=== PATIENT | female | born 1985 | race Caucasian/White ===

== ENCOUNTER 2023-01-15 17:56 | Emergency (ER) | payer MEDICARE ==
--- NOTE | 2023-01-15 18:01 | ERPHSYRPT ---
- History of Present Illness Time Seen by Provider: 01/15/23 18:00 Source: patient Exam Limitations: no limitations Physician History: This is a 37-year-old white female who is relatively new to the area and has a history of having only 1 kidney remaining (left). She has a history of recurrent urinary tract infections. Typically, she states she gets an intravenous dose of gentamicin followed by Cipro as an outpatient. This helps her quite a bit per her report. Patient does see Dr. 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 Patient has Percocet pain medication at home and does not want any pain/narcotic medication here in the emergency room or for home. Approximately 3 to 4 days ago patient noticed cloudy urine followed by left flank pain 2 days ago. Is not getting better. Patient does have a history of hypertension. Timing/Duration: day(s) (Last 3 to 4 days), worse Activites at Onset: none Quality: sharpness, stabbing Onset Location: left flank Pain Radiation: none Severity of Pain-Max: moderate Severity of Pain-Current: moderate Sexual intercourse history: non-contributory Modifying Factors: Improves With: nothing Associated Symptoms: denies symptoms Allergies/Adverse Reactions: Cephalosporins Allergy (Verified 01/15/23 18:12) latex Allergy (Verified 01/15/23 18:12) metoclopramide [From Reglan] Allergy (Verified 01/15/23 18:12) ondansetron [From Zofran] Allergy (Verified 01/15/23 18:12) Penicillins Allergy (Verified 01/15/23 18:12) Sulfa (Sulfonamide Antibiotics) Allergy (Verified 01/15/23 18:12) Tetracyclines Allergy (Verified 01/15/23 18:12) Home Medications: Duloxetine HCl 30 mg [Cymbalta 30 MG Capsule] 60 mg PO DAILY 01/15/23 [History] Furosemide [Lasix] 1 tab PO DIRECTIONS UNKNOWN 01/15/23 [History] Losartan Potassium [Cozaar] 12.5 mg PO DAILY 01/15/23 [History] Oxycodone HCl/Acetaminophen [Oxycodone-Acetaminophn 7.5-325] 1 tab PO QID 01/15/23 [History] Semaglutide [Ozempic] 0.25 mg SQ WEEKLY 01/15/23 [History] Travel Risk - International Travel Have you traveled outside of the country in past 3 weeks: No - Coronavirus Screening Are you exhibiting any of the following symptoms?: No Close contact with a COVID-19 positive Pt in past 14-21 Days: No - Review of Systems Constitutional: No Symptoms Eyes: No Symptoms Ears, Nose, & Throat: No Symptoms Respiratory: No Symptoms Cardiac: No Symptoms Abdominal/Gastrointestinal: No Symptoms Genitourinary Symptoms: Flank Pain (left) Musculoskeletal: No Symptoms Skin: No Symptoms Neurological: No Symptoms Psychological: No Symptoms Endocrine: No Symptoms Hematologic/Lymphatic: No Symptoms Immunological/Allergic: No Symptoms All Other Systems: Reviewed and Negative - Past Medical History Pertinent Past Medical History: Yes - Past Surgical History Past Surgical History: Yes - Nursing Vital Signs Nursing Vital Signs: Initial Vital Signs Temperature 98.1 F 01/15/23 17:56 Pulse Rate 85 01/15/23 17:56 Respiratory Rate 20 01/15/23 17:56 Blood Pressure 111/91 01/15/23 17:56 O2 Sat by Pulse Oximetry 95 01/15/23 17:56 Pain Scale Pain Intensity 8 - Physical Exam General Appearance: no apparent distress, alert, anxiety Eye Exam: PERRL/EOMI, eyes nml inspection Ears, Nose, Throat Exam: normal ENT inspection, moist mucous membranes Neck Exam: normal inspection, non-tender, supple, full range of motion Respiratory Exam: normal breath sounds, lungs clear, airway intact, No chest tenderness, No respiratory distress Cardiovascular Exam: regular rate/rhythm, normal heart sounds, normal peripheral pulses Gastrointestinal/Abdomen Exam: soft, normal bowel sounds, No tenderness Pelvic Exam: not done Rectal Exam: not done Back Exam: normal inspection, normal range of motion, CVA tenderness (Left), No vertebral tenderness Extremity Exam: normal inspection, normal range of motion, pelvis stable Neurologic Exam: alert, oriented x 3, cooperative, nursing associate II-XII nml as tested, normal mood/affect, nml cerebellar function, nml station & gait, sensation nml Skin Exam: normal color, warm, dry Lymphatic Exam: No adenopathy SpO2 Interpretation: normal O2 Delivery: Room Air - Course Nursing assessment & vital signs reviewed: Yes Ordered Tests: Active Orders 24 hr Category Date Time Status IV Insertion STAT Care 01/15/23 18:56 Active BMP Stat Lab 01/15/23 19:09 Completed CBC W DIFF Stat Lab 01/15/23 19:09 Completed CULTURE,URINE Stat Lab 01/15/23 18:06 Received UA W/RFX UR CULTURE Stat Lab 01/15/23 18:06 Completed Medication Summary Generic Name Dose Route Start Last Admin Trade Name Kristin PRN Reason Stop Dose Admin Sodium Chloride 500 mls @ 500 mls/hr 01/15/23 18:57 01/15/23 19:10 Sodium Chloride 0.9% 500 Ml IV 01/15/23 19:56 500 mls/hr .Q1H ONE Administration Gentamicin Sulfate/Sodium Chloride 80 mg in 50 mls @ 100 mls/hr 01/15/23 19:28 Gentamicin 80 Mg/50 Ml Premix IV 01/15/23 19:57 STAT ONE Levofloxacin 250 mg 01/15/23 19:34 Levofloxacin 250 Mg Tab PO 01/15/23 19:35 STAT ONE Discontinued Medications Generic Name Dose Route Start Last Admin Trade Name Kristin PRN Reason Stop Dose Admin Sodium Chloride Confirm 01/15/23 19:08 Sodium Chloride 0.9% 500 Ml Administered 01/15/23 19:09 Dose 500 mls @ ud IV .STK-MED ONE Lab/Rad Data: Laboratory Result Diagrams 01/15/23 19:09 01/15/23 19:09 Laboratory Results 01/15/23 01/15/23 01/15/23 Range/Units 19:09 19:09 18:06 WBC 8.3 (4.0-10.5) x10^3/uL RBC 5.13 (4.1-5.4) x10^6/uL Hgb 14.3 (12.0-16.0) g/dL Hct 46.2 (35-47) % MCV 90.1 (78-100) fL MCH 27.9 (26-32) pg MCHC 31.0 L (32-36) g/dL RDW 12.5 (11.5-14.0) % Plt Count 177 (150-450) x10^3/uL MPV 11.3 H (7.5-11.0) fL Gran % 73.2 H (36.0-66.0) % Immature Gran % (Auto) 0.2 (0.00-0.4) % Nucleat RBC Rel Count 0.0 (0.00-0.1) % Eos # (Auto) 0.11 (0-0.5) x10^3/uL Immature Gran # (Auto) 0.02 (0.00-0.03) x10^3u/L Absolute Lymphs (auto) 1.49 (1.0-4.6) x10^3/uL Absolute Monos (auto) 0.58 (0.0-1.3) x10^3/uL Absolute Nucleated RBC 0.00 (0.00-0.01) x10^3u/L Lymphocytes % 17.9 L (24.0-44.0) % Monocytes % 7.0 (0.0-12.0) % Eosinophils % 1.3 (0.00-5.0) % Basophils % 0.4 (0.0-0.4) % Absolute Granulocytes 6.08 (1.4-6.9) x10^3/uL Basophils # 0.03 (0-0.4) x10^3/uL Sodium 140 (137-145) mmol/L Potassium 4.2 (3.5-5.1) mmol/L Chloride 105 (98-107) mmol/L Carbon Dioxide 25 (22-30) mmol/L Anion Gap 14.7 (5-15) MEQ/L BUN 20 H (7-17) mg/dL Creatinine 1.43 H (0.52-1.04) mg/dL Estimated GFR 43.4 ML/MIN Glucose 95 (74-106) mg/dL Calcium 9.1 (8.4-10.2) mg/dL Urine Color Yellow (Yellow) Urine Appearance Turbid A (Clear) Urine pH 7.5 (4.6-8.0) Ur Specific [place] 1.010 (1.005-1.030) Urine Protein Trace A (Negative) Urine Glucose (UA) Negative (Negative) mg/dL Urine Ketones Negative (Negative) Urine Blood Small A (Negative) Urine Nitrite Negative (Negative) Urine Bilirubin Negative (Negative) Urine Urobilinogen 0.2 (0.2) mg/dL Ur Leukocyte Esterase Large A (Negative) U Hyaline Cast (Auto) NONE SEEN (0-2) /LPF Urine Microscopic RBC 11-20 A (0-5) /HPF Urine Microscopic WBC >100 A (0-5) /HPF Ur Epithelial Cells None Seen (None Seen) /HPF Urine Bacteria Many A (None Seen) /HPF Urine Culture Reflexed ORDERED SEPARATELY (NO) - Progress Progress: improved, re-examined Air Movement: good Progress Note: 01/15/23 19:36 This patient's medical issue is 1 of moderate complexity. The level of complexity in the work-up performed is based on the patient's past medical history, medication allergies, drug allergy list, history of present illness and physical findings on examination. We opted to place an intravenous line in this patient and provide her with a bolus with normal saline solution, obtain a CBC, BMP and urinalysis. Patient has a urinary tract infection. I reviewed all the other results. She does have only 1 kidney and there is some chronic mild renal insufficiency and we will adjust the dose of gentamicin and Levaquin here in the emergency department. Based on her GFR/creatinine clearance, we can provide her with outpatient Cipro 500 mg orally twice a day for 7 days. She will follow-up with her primary care physician for further evaluation and management. 01/15/23 19:37 Blood Culture(s) Obtained: No Antibiotics given: Yes Counseled pt/family regarding: lab results, diagnosis, need for follow-up Medical Desision Making - Discussion of managment Reviewed:: Test results Agreed on:: Treatment plan, need for follow-up - Diagnostic Testing Diagnostic test were ordered, analyzed, and reviewed by me: Yes - Risk of complications The pt has a mod risk of morbidity or mortality based on: Need for prescription drug management - Departure Departure Disposition: Home Clinical Impression: UTI (urinary tract infection) Condition: Stable Critical Care Time: No Referrals: KADI PETERSON [Primary Care Provider] - Follow up/PCP as directed Additional Instructions: Drink plenty of clear liquids. Take your medication as prescribed. Follow-up with your primary care physician and correspondence section supervisor for further evaluation management. Prescriptions: Ciprofloxacin [Cipro 500 MG] 500 mg PO BID #14 tablet
[2023-01-15 18:19] LABS: Appearance Turbid (Clear); Bacteria Many /HPF (None Seen); Bilirubin Negative (Negative); Blood Small (Negative); Epithelial Cells None Seen /HPF (None Seen); Glucose, Urine Negative (Negative); Hyaline Casts NONE SEEN /LPF (0-2); Ketones Negative (Negative); Leukocyte Esterase Large (Negative); Nitrite Negative (Negative); Ph 7.5 (4.6-8.0); Protein,Urine Dip Trace (Negative); Urobilinogen 0.2 mg/dL (0.2); WBC >100 /HPF (0-5)
[2023-01-15 18:20] LABS: ADD URINE CULTURE? ORDERED SEPARATELY (NO)
[2023-01-15] MEDS ORDERED: Sodium Chloride 0.9% 500 ML 500 ML IV ONE ×2 (18:57→19:08)
[2023-01-15 19:12] LABS: Absolute Neutrophil Ct (ANC) 6.08 x10^3/uL (1.4-6.9); BASOPHIL % 0.4 % (0.0-0.4); Basophil (Absolute #) 0.03 x10^3/uL (0-0.4); Eosinophil % 1.3 % (0.00-5.0); Eosinophil (Absolute #) 0.11 x10^3/uL (0-0.5); Hematocrit 46.2 % (35-47); Hemoglobin 14.3 g/dL (12.0-16.0); IMMATURE GRAN # 0.02 x10^3u/L (0.00-0.03); IMMATURE GRAN % 0.2 % (0.00-0.4); Lymphocyte (Absolute #) 1.49 x10^3/uL (1.0-4.6); Lymphocytes % 17.9 % (24.0-44.0); Mean Cell Volume 90.1 fL (78-100); Mean Corpuscular Hemoglobin 27.9 pg (26-32); Mean Platelet Volume 11.3 fL (7.5-11.0); Monocyte (Absolute #) 0.58 x10^3/uL (0.0-1.3); Neutrophil % 73.2 % (36.0-66.0); Platelet Count 177 x10^3/uL (150-450); Red Blood Count 5.13 x10^6/uL (4.1-5.4); Red Cell Distribution Width 12.5 % (11.5-14.0); White Blood Count 8.3 x10^3/uL (4.0-10.5)
[2023-01-15 19:26] LABS: ANION GAP 14.7 MEQ/L (5-15); Calcium 9.1 mg/dL (8.4-10.2); Creatinine 1 1.43 mg/dL (0.52-1.04); EST GLOMERULAR FILTRATION RATE 43.4 ML/MIN; Potassium 4.2 mmol/L (3.5-5.1)
[2023-01-15] MEDS ORDERED: GENTAMICIN 80 MG/50 ML PREMIX*** 80 MG/50 ML ML IV ONE ×2 (19:28→20:03)
[2023-01-15] MEDS ORDERED: Levofloxacin 250MG Tablet PO ONE (19:34)
[2023-01-15] MEDS ORDERED: Levofloxacin 250MG Tablet ONE (20:02)
[2023-01-15 20:06] VITALS: O2SAT 100
[2023-01-15] MEDS ORDERED: MORPHINE SULFATE 2 MG INJ IV ONE (20:12)
[2023-01-15] MEDS ORDERED: Compazine 10 MG/2 ML IV ONE (20:12)
[2023-01-15] MEDS ORDERED: Compazine 10 MG/2 ML ONE (20:16)
[2023-01-15] MEDS ORDERED: MORPHINE SULFATE 2 MG INJ ONE (20:16)
[2023-01-15 20:52] VITALS: BP 104/86; PULSE 79
== END 2023-01-15 20:52 | disposition home or self-care (01) ==
LOC: ED 17:56
DX: N39.0 Urinary tract infection, site not specified (principal); R10.9 Unspecified abdominal pain; R39.89 Other symptoms and signs involving the genitourinary system; Z90.5 Acquired absence of kidney; I10 Essential (primary) hypertension; Z79.891 Long term (current) use of opiate analgesic; Z79.85 Long-term (current) use of injectable non-insulin antidiabetic drugs; Z79.899 Other long term (current) drug therapy
CPT/HCPCS: 36415; 80048; 81001; 85025; 87077; 87086; 87186; 96360; 96365; 96374; 96375; 99284; P9612; J1580; J2270; A9270-GY

== ENCOUNTER 2023-09-08 21:21 | Emergency (ER) | payer MEDICARE ==
--- NOTE | 2023-09-08 21:24 | ERPHSYRPT ---
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 pt s/p right nephrectomy in past. pt self caths and has h/o recurrent utis. she feels sx again. most recently pt on levaquin and cipro. this regimen not helping. pt can take 3rd generation cephalosporins. pt with h/o hyperlipidemia, htn, dm, chronic renal dz Timing/Duration: week(s) (3), worse Quality: sharpness, stabbing Abdominal Pain Onset Location: LLQ, flank (left) Pain Radiation: LLQ Severity of Pain-Max: moderate Severity of Pain-Current: moderate Modifying Factors: Improves With: nothing Associated Symptoms: No chest pain, No diarrhea, No fever/chills, No headache, No loss of appetite, No nausea, No vomiting Previous symptoms: same symptoms as today, no recent treatment Allergies/Adverse Reactions: Cephalosporins Allergy (Verified 09/08/23 21:37) latex Allergy (Verified 09/08/23 21:37) metoclopramide [From Reglan] Allergy (Verified 09/08/23 21:37) ondansetron [From Zofran] Allergy (Verified 09/08/23 21:37) Penicillins Allergy (Verified 09/08/23 21:37) Sulfa (Sulfonamide Antibiotics) Allergy (Verified 09/08/23 21:37) Tetracyclines Allergy (Verified 09/08/23 21:37) Home Medications: Duloxetine HCl 30 mg [Cymbalta 30 MG Capsule] 60 mg PO DAILY 01/15/23 [History] Furosemide [Lasix] 1 tab PO DIRECTIONS UNKNOWN 01/15/23 [History] Losartan Potassium [Cozaar] 12.5 mg PO DAILY 01/15/23 [History] Oxycodone HCl/Acetaminophen [Oxycodone-Acetaminophn 7.5-325] 1 tab PO QID 01/15/23 [History] Semaglutide [Ozempic] 0.25 mg SQ WEEKLY 01/15/23 [History] Baclofen 5 mg PO TID 09/08/23 [History] Nortriptyline HCl 25 mg PO HS 09/08/23 [History] Hx Tetanus, Diphtheria Vaccination/Date Given: Yes Hx Influenza Vaccination/Date Given: Yes Hx Pneumococcal Vaccination/Date Given: Yes Travel Risk - International Travel Have you traveled outside of the country in past 3 weeks: No - Coronavirus Screening Are you exhibiting any of the following symptoms?: No Close contact with a COVID-19 positive Pt in past 14-21 Days: No - Vaccine Status Have you recieved a Covid-19 vaccination: Yes 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: [employer] - Vaccination Dates Date of 2cond Vaccination (if applicable): 2020 - Review of Systems Constitutional: No Symptoms Eyes: No Symptoms Ears, Nose, & Throat: No Symptoms Respiratory: No Symptoms Cardiac: No Symptoms Abdominal/Gastrointestinal: Abdominal Pain (llq) Genitourinary Symptoms: Flank Pain (left) Musculoskeletal: No Symptoms Skin: No Symptoms Neurological: No Symptoms Psychological: No Symptoms Endocrine: No Symptoms Hematologic/Lymphatic: No Symptoms Immunological/Allergic: No Symptoms All Other Systems: Reviewed and Negative - Past Medical History Pertinent Past Medical History: Yes Neurological History: Migraines Cardiac History: High Cholesterol, Hypertension Musculoskeletal History: Fractures GI Medical History: Other History: Renal Disease, Other Psycho-Social History: Depression Other Medical History: PTSD, urinary retention (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 Ross), COVID, History of 7 small bowel obstructions with 3 requiring surgical intervention - Past Surgical History Past Surgical History: Yes Gastrointestinal: Bowel Surgery Genitourinary: Kidney Surgery, Other Musculoskeletal: Orthopedic Surgery Other Surgical History: History of 7 small bowel obstructions with 3 requiring surgical intervention, bladder augmentation at age 8, right kidney removed at age 6, urinary retention since age 5 - Social History Smoking Status: Never smoker Exposure to second hand smoke: No Drug Use: none Patient Lives Alone: No - Nursing Vital Signs Nursing Vital Signs: Initial Vital Signs Temperature 97.1 F 09/08/23 21:38 Pulse Rate 83 09/08/23 21:38 Respiratory Rate 18 09/08/23 21:38 Blood Pressure 126/83 09/08/23 21:38 O2 Sat by Pulse Oximetry 98 09/08/23 21:38 Pain Scale Pain Intensity 8 - Physical Exam General Appearance: mild distress, alert, anxiety, thin Eye Exam: PERRL/EOMI, eyes nml inspection Ears, Nose, Throat Exam: normal ENT inspection, moist mucous membranes Neck Exam: normal inspection, non-tender, supple, full range of motion Respiratory Exam: normal breath sounds, lungs clear, airway intact, No chest tenderness, No respiratory distress Cardiovascular Exam: regular rate/rhythm, normal heart sounds, normal peripheral pulses Gastrointestinal/Abdomen Exam: soft, normal bowel sounds, tenderness (lq), No guarding, No rebound Pelvic Exam: not done Rectal Exam: not done Back Exam: normal inspection, normal range of motion, CVA tenderness (left), No vertebral tenderness Extremity Exam: normal inspection, normal range of motion, pelvis stable Neurologic Exam: alert, oriented x 3, cooperative, contract technician II-XII nml as tested, normal mood/affect, nml cerebellar function, nml station & gait, sensation nml Skin Exam: normal color, warm, dry Lymphatic Exam: No adenopathy SpO2 Interpretation: normal O2 Delivery: Room Air - Course Nursing assessment & vital signs reviewed: Yes Ordered Tests: Active Orders 24 hr Category Date Time Status IV Insertion STAT Care 09/08/23 22:07 Active AMYLASE Stat Lab 09/08/23 22:27 Received CBC W DIFF Stat Lab 09/08/23 22:27 Received CMP Stat Lab 09/08/23 22:27 Received CULTURE,URINE Stat Lab 09/08/23 22:07 Received LIPASE Stat Lab 09/08/23 22:27 Received UA W/RFX UR CULTURE Stat Lab 09/08/23 21:33 Received Medication Summary Generic Name Dose Route Start Last Admin Trade Name Freq PRN Reason Stop Dose Admin Hydromorphone HCl 0.5 mg 09/08/23 22:52 Hydromorphone 1 Mg/1ml Inj IV 09/08/23 22:53 STAT ONE Sodium Chloride 1,000 mls @ 999 mls/hr 09/08/23 22:18 09/08/23 22:23 Sodium Chloride 0.9% 1000 Ml IV 09/08/23 23:18 999 mls/hr .Q1H1M STA Administration Discontinued Medications Generic Name Dose Route Start Last Admin Trade Name Freq PRN Reason Stop Dose Admin Hydromorphone HCl 1 mg 09/08/23 22:18 09/08/23 22:23 Hydromorphone 1 Mg/1ml Inj IV 09/08/23 22:19 1 mg STAT ONE Administration Hydromorphone HCl Confirm 09/08/23 22:21 Hydromorphone 1 Mg/1ml Inj Administered 09/08/23 22:22 Dose 1 mg .ROUTE .STK-MED ONE Sodium Chloride Confirm 09/08/23 22:21 Sodium Chloride 0.9% 1000 Ml Administered 09/08/23 22:22 Dose 1,000 mls @ ud .ROUTE .STK-MED ONE Prochlorperazine Edisylate 5 mg 09/08/23 22:18 09/08/23 22:23 Prochlorperazine Edisylate 10 Mg/2 Ml Vial IV 09/08/23 22:19 5 mg STAT ONE Administration Prochlorperazine Edisylate Confirm 09/08/23 22:21 Prochlorperazine Edisylate 10 Mg/2 Ml Vial Administered 09/08/23 22:22 Dose 10 mg .ROUTE .STK-MED ONE Lab/Rad Data: Laboratory Result Diagrams 09/08/23 22:27 09/08/23 22:27 Laboratory Results 09/08/23 09/08/23 Range/Units 22:27 22:27 WBC 7.1 (4.0-10.5) x10^3/uL RBC 4.65 (4.1-5.4) x10^6/uL Hgb 13.3 (12.0-16.0) g/dL Hct 42.0 (35-47) % MCV 90.3 (78-100) fL MCH 28.6 (26-32) pg MCHC 31.7 L (32-36) g/dL RDW 12.9 (11.5-14.0) % Plt Count 195 (150-450) x10^3/uL MPV 11.6 H (7.5-11.0) fL Gran % 66.4 H (36.0-66.0) % Immature Gran % (Auto) 0.1 (0.00-0.4) % Nucleat RBC Rel Count 0.0 (0.00-0.1) % Eos # (Auto) 0.10 (0-0.5) x10^3/uL Immature Gran # (Auto) 0.01 (0.00-0.03) x10^3u/L Absolute Lymphs (auto) 1.72 (1.0-4.6) x10^3/uL Absolute Monos (auto) 0.52 (0.0-1.3) x10^3/uL Absolute Nucleated RBC 0.00 (0.00-0.01) x10^3u/L Lymphocytes % 24.4 (24.0-44.0) % Monocytes % 7.4 (0.0-12.0) % Eosinophils % 1.4 (0.00-5.0) % Basophils % 0.3 (0.0-0.4) % Absolute Granulocytes 4.68 (1.4-6.9) x10^3/uL Basophils # 0.02 (0-0.4) x10^3/uL Sodium 135 L (137-145) mmol/L Potassium 3.7 (3.5-5.1) mmol/L Chloride 104 (98-107) mmol/L Carbon Dioxide 22 (22-30) mmol/L Anion Gap 13.4 (5-15) MEQ/L BUN 16 (7-17) mg/dL Creatinine 1.30 H (0.52-1.04) mg/dL Estimated GFR 53.3 ML/MIN Glucose 92 (74-106) mg/dL Calcium 9.1 (8.4-10.2) mg/dL Total Bilirubin 0.50 (0.2-1.3) mg/dL AST 20 (14-36) U/L ALT 16 (0-35) U/L Alkaline Phosphatase 45 (38-126) U/L Serum Total Protein 7.2 (6.3-8.2) g/dL Albumin 4.1 (3.5-5.0) g/dL Amylase 79 (30-110) U/L Lipase 52 (23-300) U/L - Progress Progress: improved, pain not gone completely, re-examined Progress Note: 09/08/23 22:50 moderate complex medical issue. w/u based on pmhx, review of med and allergy list, hpi and physical findings. iv placement, ivf/n, iv dilaudid and compazine, ua, cbc and cmp Counseled pt/family regarding: lab results, diagnosis, need for follow-up Medical Desision Making - Diagnostic Testing Diagnostic test were ordered, analyzed, and reviewed by me: Yes - Risk of complications The pt has a mod risk of morbidity or mortality based on: Need for prescription drug management - Departure Departure Disposition: Home Clinical Impression: UTI (urinary tract infection) Condition: Stable Critical Care Time: No Referrals: KADI PETERSON [Primary Care Provider] - Follow up/PCP as directed Additional Instructions: drink plenty of fluids. take your medications as prescribed. call dr. ross morning of 09/09/23 for further management and to arrange for follow up appointment. call your pain specialist for outpatient pain control
[2023-09-08 21:40] VITALS: RESP 18; TEMP 97.1
[2023-09-08] MEDS ORDERED: Sodium Chloride 0.9% 1000 ML 1,000 ML IV STA (22:18)
[2023-09-08] MEDS ORDERED: Compazine 10 MG/2 ML IV ONE (22:18)
[2023-09-08] MEDS ORDERED: Hydromorphone 1 mg/ml Injection IV ONE ×2 (22:18→22:52)
[2023-09-08] MEDS ORDERED: Compazine 10 MG/2 ML ONE (22:21)
[2023-09-08] MEDS ORDERED: Hydromorphone 1 mg/ml Injection ONE ×2 (22:21→23:05)
[2023-09-08] MEDS ORDERED: Sodium Chloride 0.9% 1000 ML 1,000 ML ONE (22:21)
[2023-09-08 22:30] LABS: Absolute Neutrophil Ct (ANC) 4.68 x10^3/uL (1.4-6.9); BASOPHIL % 0.3 % (0.0-0.4); Basophil (Absolute #) 0.02 x10^3/uL (0-0.4); Eosinophil % 1.4 % (0.00-5.0); Hemoglobin 13.3 g/dL (12.0-16.0); IMMATURE GRAN # 0.01 x10^3u/L (0.00-0.03); IMMATURE GRAN % 0.1 % (0.00-0.4); Lymphocyte (Absolute #) 1.72 x10^3/uL (1.0-4.6); Lymphocytes % 24.4 % (24.0-44.0); Mean Cell Volume 90.3 fL (78-100); Mean Corpuscular Hemoglobin 28.6 pg (26-32); Mean Corpuscular Hgb Concent. 31.7 g/dL (32-36); Mean Platelet Volume 11.6 fL (7.5-11.0); Monocyte (Absolute #) 0.52 x10^3/uL (0.0-1.3); Monocytes % 7.4 % (0.0-12.0); Neutrophil % 66.4 % (36.0-66.0); Platelet Count 195 x10^3/uL (150-450); Red Blood Count 4.65 x10^6/uL (4.1-5.4); Red Cell Distribution Width 12.9 % (11.5-14.0); White Blood Count 7.1 x10^3/uL (4.0-10.5)
[2023-09-08 22:47] LABS: ALBUMIN 4.1 g/dL (3.5-5.0); ANION GAP 13.4 MEQ/L (5-15); BILIRUBIN,TOTAL 0.5 mg/dL (0.2-1.3); Calcium 9.1 mg/dL (8.4-10.2); Creatinine 1 1.3 mg/dL (0.52-1.04); EST GLOMERULAR FILTRATION RATE 53.3 ML/MIN; Potassium 3.7 mmol/L (3.5-5.1); Total Protein 7.2 g/dL (6.3-8.2)
[2023-09-08] MEDS ORDERED: GENTAMICIN 80 MG/50 ML PREMIX*** 80 MG/50 ML ML IV ONE ×2 (22:52→23:37)
[2023-09-08] MEDS ORDERED: ROCEPHIN 1 Gm-D5w 50 ml Bag** 1 G/50 ML IVPB IV STA (22:52)
[2023-09-08 23:06] LABS: Appearance Turbid (Clear); Bacteria Many /HPF (None Seen); Bilirubin Negative (Negative); Blood Negative (Negative); Epithelial Cells None Seen /HPF (None Seen); Glucose, Urine Negative (Negative); Ketones Negative (Negative); Leukocyte Esterase Moderate (Negative); Nitrite Negative (Negative); Protein,Urine Dip Trace (Negative); RBC 0-2 /HPF (0-5); Urobilinogen 0.2 mg/dL (0.2); WBC 51-100 /HPF (0-5)
[2023-09-08] MEDS ORDERED: ROCEPHIN 1 Gm-D5w 50 ml Bag** 1 G/50 ML IVPB IV ONE (23:06)
[2023-09-08 23:07] LABS: ADD URINE CULTURE? ORDERED SEPARATELY (NO); Mucus Many /HPF (NEGATIVE)
[2023-09-08 23:18] VITALS: PULSE 71
[2023-09-09 00:07] VITALS: BP 109/67; O2SAT 100
== END 2023-09-09 00:25 | disposition home or self-care (01) ==
LOC: ED 21:21
DX: N39.0 Urinary tract infection, site not specified (principal); R10.32 Left lower quadrant pain; E78.5 Hyperlipidemia, unspecified; I12.9 Hypertensive chronic kidney disease with stage 1 through stage 4 chronic kidney disease, or unspecified chronic kidney disease; E11.22 Type 2 diabetes mellitus with diabetic chronic kidney disease; N18.9 Chronic kidney disease, unspecified; Z79.891 Long term (current) use of opiate analgesic; Z79.85 Long-term (current) use of injectable non-insulin antidiabetic drugs; Z79.899 Other long term (current) drug therapy; Z86.16 Personal history of COVID-19
CPT/HCPCS: 36000; 36415; 80053; 81001; 82150; 83690; 85025; 87077; 87086; 87186; 96374; 96375; 99284; J0696; J1170; J1580

== ENCOUNTER 2023-11-28 23:16 | Emergency (ER) | payer MEDICARE ==
--- NOTE | 2023-11-28 23:18 | ERPHSYRPT ---
- History of Present Illness Time Seen by Provider: 11/28/23 23:18 Source: patient Exam Limitations: no limitations Physician History: This is a right-handed white female patient who is diabetic and has 1 kidney and has a history of hypertension and suffered scratches to her left hand primarily dorsal aspect. Patient is already on Levaquin (day 3) for treatment of urinary tract infection. Patient thinks she has 2 more days of her Levaquin. Timing/Duration: today Quality: painful Severity: mild (Moderate) Location: hands (Left hand dorsal aspect) Possible Causes: other (Cat scratch) Associated Symptoms: denies symptoms Allergies/Adverse Reactions: Cephalosporins Allergy (Verified 11/28/23 23:34) latex Allergy (Verified 11/28/23 23:34) metoclopramide [From Reglan] Allergy (Verified 11/28/23 23:34) ondansetron [From Zofran] Allergy (Verified 11/28/23 23:34) Penicillins Allergy (Verified 11/28/23 23:34) Sulfa (Sulfonamide Antibiotics) Allergy (Verified 11/28/23 23:34) Tetracyclines Allergy (Verified 11/28/23 23:34) Home Medications: Duloxetine HCl 30 mg [Cymbalta 30 MG Capsule] 60 mg PO DAILY 01/15/23 [History] Losartan Potassium [Cozaar] 12.5 mg PO DAILY 01/15/23 [History] Oxycodone HCl/Acetaminophen [Oxycodone-Acetaminophn 7.5-325] 1 tab PO QID PRN PRN 01/15/23 [History] Baclofen 5 mg PO TID 09/08/23 [History] Nortriptyline HCl 25 mg PO HS 09/08/23 [History] levoFLOXacin [Levofloxacin] 500 mg PO DAILY 11/28/23 [History] Hx Tetanus, Diphtheria Vaccination/Date Given: Yes Hx Influenza Vaccination/Date Given: Yes Hx Pneumococcal Vaccination/Date Given: Yes Travel Risk - International Travel Have you traveled outside of the country in past 3 weeks: No - Coronavirus Screening Are you exhibiting any of the following symptoms?: No Close contact with a COVID-19 positive Pt in past 14-21 Days: No - Vaccine Status Have you recieved a Covid-19 vaccination: Yes 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[employer] - Vaccination Dates Date of 2cond Vaccination (if applicable): 2020 - Review of Systems Constitutional: No Symptoms Eyes: No Symptoms Ears, Nose, & Throat: No Symptoms Respiratory: No Symptoms Cardiac: No Symptoms Abdominal/Gastrointestinal: No Symptoms Musculoskeletal: Injury (Left hand cat scratches) Skin: Other (See above) Neurological: No Symptoms Psychological: No Symptoms Endocrine: No Symptoms Hematologic/Lymphatic: No Symptoms Immunological/Allergic: No Symptoms All Other Systems: Reviewed and Negative - Past Medical History Pertinent Past Medical History: Yes Neurological History: Migraines ENT History: No Pertinent History Cardiac History: High Cholesterol Respiratory History: No Pertinent History Endocrine Medical History: No Pertinent History Musculoskeletal History: Fractures GI Medical History: Other History: Renal Disease, Other Psycho-Social History: Depression Female Reproductive Disorders: Other Other Medical History: PTSD, urinary retention (patient has been straight cathing herself since the age of 5), 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), COVID, History of 7 small bowel obstructions with 3 requiring surgical intervention - Past Surgical History Past Surgical History: Yes Neuro Surgical History: No Pertinent History Cardiac: No Pertinent History Respiratory: No Pertinent History Gastrointestinal: Bowel Surgery Genitourinary: Kidney Surgery, Other Musculoskeletal: Orthopedic Surgery Other Surgical History: History of 7 small bowel obstructions with 3 requiring surgical intervention, bladder augmentation at age 8, right kidney removed at age 6, urinary retention since age 5, Right nephrectomy, renal stents,, left elbow shattered w/ pins and rods placed - Social History Smoking Status: Never smoker Exposure to second hand smoke: No Drug Use: none Patient Lives Alone: No - Nursing Vital Signs Nursing Vital Signs: Initial Vital Signs Temperature 98.0 F 11/28/23 23:20 Pulse Rate 104 H 11/28/23 23:20 Respiratory Rate 18 11/28/23 23:20 Blood Pressure 135/108 11/28/23 23:20 O2 Sat by Pulse Oximetry 97 11/28/23 23:20 Pain Scale Pain Intensity 8 - Physical Exam General Appearance: no apparent distress, alert, anxiety Eye Exam: PERRL/EOMI, eyes nml inspection Ears, Nose, Throat Exam: normal ENT inspection, moist mucous membranes Neck Exam: normal inspection, non-tender, supple, full range of motion Respiratory Exam: normal breath sounds, lungs clear, airway intact, No chest tenderness, No respiratory distress Cardiovascular Exam: regular rate/rhythm, normal heart sounds, normal peripheral pulses Gastrointestinal/Abdomen Exam: soft, normal bowel sounds, No tenderness Pelvic Exam: not done Rectal Exam: not done Back Exam: normal inspection, normal range of motion, No CVA tenderness, No vertebral tenderness Extremity Exam: normal range of motion, pelvis stable, tenderness (Multiple cat scratches on the dorsal aspect of left hand. There is a cat scratch in the webspace between the second and third digits in the left hand. No foreign bodies. No active bleeding. Tendons intact. 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 The level of complexity and the workup performed is based on review of the patient's past medical history, review of the patient's medication list, review of the patient's drug allergy list, history of present illness and physical findings on examination. This patient's workup does not include laboratory radiographic studies. The patient is already on an antibiotic that should cover cat scratch prophylaxis. I provided the patient with wound care instructions. We will write a 5-day prescription of a Z-Ulciano to begin after her Levaquin medication has completed. We will provide the patient with 2 take-home [place] pain pills. Counseled pt/family regarding: diagnosis, need for follow-up Medical Desision Making - Diagnostic Testing Diagnostic test were ordered, analyzed, and reviewed by me: No - Risk of complications The pt has a mod risk of morbidity or mortality based on: Need for prescription drug management - Departure Departure Disposition: Home Clinical Impression: Cat scratch of left hand Condition: Stable Critical Care Time: No Referrals: KADI PETERSON [Primary Care Provider] - Follow up/PCP as directed Additional Instructions: Soak left hand in warm soapy water or warm Epsom salts twice a day. Blot dry use a interior design program chair. Cover the wounds with a Band-Aid. Do not close them with Steri-Strips. Do not apply antibiotic ointment to the wound sites. Complete your Levaquin antibiotics. After you complete your Levaquin antibiotics, use the Z-Luciano as prescribed. Tylenol for pain and fever control Prescriptions: Azithromycin 250 mg [Zithromax 250 MG TABLET] 250 mg PO ZPACK #6 tablet
[2023-11-28 23:24] VITALS: PULSE 104; RESP 18; TEMP 98; O2SAT 97
[2023-11-29] MEDS ORDERED: NORCO 5/325 MG ONE (00:35)
[2023-11-29] MEDS ORDERED: Adacel Vial IM ONE (00:51)
[2023-11-29] MEDS: Adacel Vial IM ONE (00:56)
[2023-11-29] MEDS: NORCO 5/325 MG PO ONE (00:57)
[2023-11-29 01:01] VITALS: BP 112/73
== END 2023-11-29 01:03 | disposition home or self-care (01) ==
LOC: ED 23:16
DX: S60.512A Abrasion of left hand, initial encounter (principal); W55.03XA Scratched by cat, initial encounter; E11.9 Type 2 diabetes mellitus without complications; I10 Essential (primary) hypertension; E78.5 Hyperlipidemia, unspecified; Z79.891 Long term (current) use of opiate analgesic; Z79.899 Other long term (current) drug therapy; Z86.16 Personal history of COVID-19; Z23 Encounter for immunization
CPT/HCPCS: 90471; 90715; 99282; A9270-GY

== ENCOUNTER 2024-01-28 16:52 | Observation (INO) | payer MEDICARE ==
--- NOTE | 2024-01-28 17:19 | ERPHSYRPT ---
- History of Present Illness Time Seen by Provider: 01/28/24 17:15 Source: patient Exam Limitations: no limitations Physician History: This is a 38-year-old white female patient who was having urinary tract infection symptoms and was placed on Cipro antibiotic. The culture and sensitivity was collected on 01/26/2024 and was read out today, 01/28/2024. Patient is allergic to cephalosporins. The organism identified is ESBL positive. It is not susceptible to Cipro and therefore the patient was sent to us in order to provide further management of this patient's issue. Timing/Duration: other (Urine culture and sensitivities that were obtained at an outpatient clinic and I reviewed the results dated 01/26/2024) Activites at Onset: none Onset Location: other (No significant pain) Pain Radiation: none Severity of Pain-Max: none Severity of Pain-Current: none Sexual intercourse history: non-contributory Modifying Factors: Improves With: nothing Associated Symptoms: denies symptoms Allergies/Adverse Reactions: Cephalosporins Allergy (Verified 01/28/24 17:03) latex Allergy (Verified 01/28/24 17:03) metoclopramide [From Reglan] Allergy (Verified 01/28/24 17:03) ondansetron [From Zofran] Allergy (Verified 01/28/24 17:03) Penicillins Allergy (Verified 01/28/24 17:03) Sulfa (Sulfonamide Antibiotics) Allergy (Verified 01/28/24 17:03) Tetracyclines Allergy (Verified 01/28/24 17:03) Home Medications: Duloxetine HCl 30 mg [Cymbalta 30 MG Capsule] 60 mg PO DAILY 01/15/23 [History] Losartan Potassium [Cozaar] 12.5 mg PO DAILY 01/15/23 [History] Oxycodone HCl/Acetaminophen [Oxycodone-Acetaminophn 7.5-325] 1 tab PO QID PRN PRN 01/15/23 [History] Baclofen 5 mg PO TID 09/08/23 [History] Nortriptyline HCl 25 mg PO HS 09/08/23 [History] levoFLOXacin [Levofloxacin] 500 mg PO DAILY 11/28/23 [History] Hx Tetanus, Diphtheria Vaccination/Date Given: Yes Hx Influenza Vaccination/Date Given: Yes Hx Pneumococcal Vaccination/Date Given: Yes Travel Risk - International Travel Have you traveled outside of the country in past 3 weeks: No - Emerging Infectious Disease Are you exhibiting symptoms associated with any current EIDs: No - Review of Systems Constitutional: No Symptoms Eyes: No Symptoms Ears, Nose, & Throat: No Symptoms Respiratory: No Symptoms Cardiac: No Symptoms Abdominal/Gastrointestinal: No Symptoms Genitourinary Symptoms: Dysuria, Frequency Musculoskeletal: No Symptoms Skin: No Symptoms Neurological: No Symptoms Psychological: No Symptoms Endocrine: No Symptoms Hematologic/Lymphatic: No Symptoms Immunological/Allergic: No Symptoms All Other Systems: Reviewed and Negative - Past Medical History Pertinent Past Medical History: Yes Neurological History: Migraines ENT History: No Pertinent History Cardiac History: High Cholesterol Respiratory History: No Pertinent History Endocrine Medical History: No Pertinent History Musculoskeletal History: Fractures GI Medical History: Other History: Renal Disease, Other Psycho-Social History: Depression Female Reproductive Disorders: Other Other Medical History: PTSD, urinary retention (patient has been straight nic ng herself since the age of 5), 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), COVID, History of 7 small bowel obstructions with 3 requiring surgical intervention - Past Surgical History Past Surgical History: Yes Neuro Surgical History: No Pertinent History Cardiac: No Pertinent History Respiratory: No Pertinent History Gastrointestinal: Bowel Surgery Genitourinary: Kidney Surgery, Other Musculoskeletal: Orthopedic Surgery Other Surgical History: History of 7 small bowel obstructions with 3 requiring surgical intervention, bladder augmentation at age 8, right kidney removed at age 6, urinary retention since age 5, Right nephrectomy, renal stents,, left elbow shattered w/ pins and rods placed - Social History Smoking Status: Never smoker Exposure to second hand smoke: No Drug Use: none Patient Lives Alone: No - Physical Exam General Appearance: no apparent distress, alert Eye Exam: PERRL/EOMI, eyes nml inspection Ears, Nose, Throat Exam: normal ENT inspection, moist mucous membranes Neck Exam: normal inspection, non-tender, supple, full range of motion Respiratory Exam: airway intact, No chest tenderness, No respiratory distress Cardiovascular Exam: regular rate/rhythm, normal heart sounds, normal peripheral pulses Gastrointestinal/Abdomen Exam: No tenderness Pelvic Exam: not done Rectal Exam: not done Back Exam: normal inspection, normal range of motion, No CVA tenderness, No vert ebral tenderness Extremity Exam: normal inspection, normal range of motion, pelvis stable Neurologic Exam: alert, oriented x 3, cooperative, 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, normal mood/affect, nml cerebellar function, nml station & gait, sensation nml Skin Exam: normal color, warm, dry Lymphatic Exam: No adenopathy O2 Delivery: Room Air - Course Nursing assessment & vital signs reviewed: Yes Ordered Tests: Medication Summary Generic Name Dose Route Start Last Admin Trade Name Kristin PRN Reason Stop Dose Admin Nitrofurantoin Macrocrystals 100 mg 01/28/24 17:12 Nitrofurantoin Macro 100 Mg Capsule PO 01/28/24 17:13 STAT ONE - Progress Progress: unchanged Air Movement: good Progress Note: 01/28/24 17:17 My medical decision making and the assignment of low complexity in this patient's medical issue today is based on review of the patient's past medical history, review of outpatient laboratory results including culture and sensitivities, review the patient's medication list, review of patient drug allergy list, history present illness and physical findings on examination. No new radiographic or laboratory studies are necessary in this patient. I reviewed the patient's medication allergy list as well as the culture and sensitivity results. I am unable to use cephalosporins secondary to the patient being allergic to this drug class. ESBL positive urinary tract infections are typically sensitive to nitrofurantoin. We will have her stop all the other antibiotics that she is taking and place her on this medication give her the first dose at this time. Blood Culture(s) Obtained: No Antibiotics given: Yes Counseled pt/family regarding: lab results, diagnosis, need for follow-up Medical Desision Making - Diagnostic Testing Diagnostic test were ordered, analyzed, and reviewed by me: Yes - Risk of complications The pt has a mod risk of morbidity or mortality based on: Need for prescription drug management - Departure Departure Disposition: Home Clinical Impression: UTI due to extended-spectrum beta lactamase (ESBL) producing Escherichia coli Condition: Stable Critical Care Time: No Referrals: KADI PETERSON [Primary Care Provider] - Follow up/PCP as directed Additional Instructions: Drink plenty of fluids. Stop all your other antibiotics that you are taking. Start your new antibiotic, nitrofurantoin. Follow-up with your primary care provider on 01/30/2024 to make arrangements for further evaluation management in the next 3 to 5 days. Prescriptions: Nitrofurantoin Macro 100 mg [Macrobid 100MG Capsule] 100 mg PO BID #14 cap
[2024-01-28 18:26] LABS: Absolute Neutrophil Ct (ANC) 4.54 x10^3/uL (1.4-6.9); BASOPHIL % 0.6 % (0.0-0.4); Basophil (Absolute #) 0.04 x10^3/uL (0-0.4); Eosinophil % 1.2 % (0.00-5.0); Eosinophil (Absolute #) 0.09 x10^3/uL (0-0.5); Hematocrit 44.2 % (35-47); Hemoglobin 13.9 g/dL (12.0-16.0); IMMATURE GRAN # 0.02 x10^3u/L (0.00-0.03); IMMATURE GRAN % 0.3 % (0.00-0.4); Lymphocyte (Absolute #) 2.04 x10^3/uL (1.0-4.6); Lymphocytes % 28.1 % (24.0-44.0); Mean Cell Volume 89.5 fL (78-100); Mean Corpuscular Hemoglobin 28.1 pg (26-32); Mean Corpuscular Hgb Concent. 31.4 g/dL (32-36); Mean Platelet Volume 11.4 fL (7.5-11.0); Monocyte (Absolute #) 0.52 x10^3/uL (0.0-1.3); Monocytes % 7.2 % (0.0-12.0); Neutrophil % 62.6 % (36.0-66.0); Platelet Count 167 x10^3/uL (150-450); Red Blood Count 4.94 x10^6/uL (4.1-5.4); Red Cell Distribution Width 12.3 % (11.5-14.0); White Blood Count 7.3 x10^3/uL (4.0-10.5)
[2024-01-28 18:39] LABS: ANION GAP 13.2 MEQ/L (5-15); BILIRUBIN,TOTAL 0.3 mg/dL (0.2-1.3); Calcium 9.1 mg/dL (8.4-10.2); Creatinine 1 1.25 mg/dL (0.52-1.04); EST GLOMERULAR FILTRATION RATE 55.9 ML/MIN; Potassium 4.1 mmol/L (3.5-5.1); Total Protein 7.2 g/dL (6.3-8.2)
[2024-01-28] MEDS ORDERED: MORPHINE SULFATE 4 MG INJ ONE (18:45)
[2024-01-28] MEDS ORDERED: Zofran 4 MG/2 ML VIAL ONE (18:45)
[2024-01-28] MEDS ORDERED: Sodium Chloride 0.9% 1000 ML 1,000 ML ONE (18:46)
[2024-01-28] MEDS: Sodium Chloride 0.9% 1000 ML 1,000 ML IV STA (18:47)
[2024-01-28] MEDS ORDERED: Compazine 10 MG/2 ML ONE (18:50)
[2024-01-28] MEDS: ZOFRAN ODT 4 MG PO ONE (18:51)
[2024-01-28] MEDS: Compazine 10 MG/2 ML IV ONE (18:52)
[2024-01-28] MEDS: MORPHINE SULFATE 4 MG INJ IV ONE (18:54)
[2024-01-28] MEDS: Macrobid 100MG Capsule PO ONE (18:58)
--- NOTE | 2024-01-28 20:50 | PCM.HP ---
History of Present Illness - Chief Complaint Chief Complaint: ESBL UTI Date: 01/28/24 History of Present Illness: is a 38 year old female with PMh significant for HTN,Fibromyalgia, Recurrent UTI,came to ER on 01/25 for UTI Symptoms,discharged home on cipro and cultures were sent. she was called back for admit on 01/27 due to Urine cultures growing ESBL and pt was not able to tolerate any AB due to multiple allergies.She is reporting c/o fever, dysuria, hematuria and Right side flank pain. no Chest pain ,SOb or any other GIT/Urinary SX reported.In the ER, she was not septic, v/s were stable and labs were essentially negative.She recieved initial dose of meropenem after benadryl injection and admitted for further care - Review of Systems Constitutional: Fever, Chills, Other Ears, Nose, & Throat: No Symptoms Respiratory: No Symptoms Cardiac: No Symptoms Abdominal/Gastrointestinal: No Symptoms Genitourinary Symptoms: Dysuria, Frequency Musculoskeletal: No Symptoms Skin: No Symptoms Neurological: No Symptoms Psychological: No Symptoms Endocrine: No Symptoms Hematologic/Lymphatic: No Symptoms Immunological/Allergic: No Symptoms All Other Systems: Reviewed and Negative Medications & Allergies Home Medications: Home Medication List Duloxetine HCl 30 mg [Cymbalta 30 MG Capsule] 60 mg PO DAILY 01/15/23 [History Confirmed 01/28/24] Losartan Potassium [Cozaar] 12.5 mg PO HS 01/15/23 [History Confirmed 01/28/24] Oxycodone HCl/Acetaminophen [Oxycodone-Acetaminophn 7.5-325] 1 tab PO QID PRN PRN 01/15/23 [History Confirmed 01/28/24] Amitriptyline HCl 25 mg [Amitriptyline 25 mg Tablet] 25 mg PO HS 01/28/24 [History Confirmed 01/28/24] Butalbit/Acetamin/Caff/Codeine [Fioricet-Cod 09-163-18-30 Cap] 1 each PO BID PRN 01/28/24 [History Confirmed 01/28/24] Magnesium Oxide [Magnesium] 400 mg PO HS 01/28/24 [History Confirmed 01/28/24] Simvastatin 5 mg PO HS 01/28/24 [History Confirmed 01/28/24] Allergies/Adverse Reactions: Allergies Allergy/AdvReac Type Severity Reaction Status Date / Time Cephalosporins Allergy Verified 01/28/24 17:03 latex Allergy Verified 01/28/24 17:03 metoclopramide [From Reglan] Allergy Verified 01/28/24 17:03 nitrofurantoin Allergy Verified 01/28/24 17:42 ondansetron [From Zofran] Allergy Verified 01/28/24 17:03 Penicillins Allergy Verified 01/28/24 17:03 Sulfa (Sulfonamide Allergy Verified 01/28/24 17:03 Antibiotics) Tetracyclines Allergy Verified 01/28/24 17:03 - Past Medical History Past Medical History: Yes Neurological History: Migraines ENT History: No Pertinent History Cardiac History: High Cholesterol Respiratory History: No Pertinent History Endocrine Medical History: No Pertinent History Musculoskelatal History: Fractures GI Medical History: Other History: Renal Disease, Other Pyscho-Social History: Depression Reproductive Disorders: Other Comment: PTSD, urinary retention (patient has been straight cathing herself since the age of 5), 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), COVID, History of 7 small bowel obstructions with 3 requiring surgical intervention - Female History Hx Last Menstrual Period: IUD - Past Surgical History Past Surgical History: No (No significant PSH reported) Neuro Surgical History: No Pertinent History Cardiac History: No Pertinent History Respiratory Surgery: No Pertinent History GI Surgical History: Bowel Surgery Genitourinary Surgical Hx: Kidney Surgery, Other Musculskeletal Surgical Hx: Orthopedic Surgery Other Surgical History: History of 7 small bowel obstructions with 3 requiring surgical intervention, bladder augmentation at age 8, right kidney removed at age 6, urinary retention since age 5, Right nephrectomy, renal stents,, left elbow shattered w/ pins and rods placed - Social History Smoking Status: Former smoker Exposure to second hand smoke: No Alcohol: Rarely Drug Use: none - Social Determinants of Health Will the patient participate in the screening: Yes Do you worry about a steady place to live?: No Do you have any problems with any of the following?: No known problems In the past 12 months,have you had to go without utilities?: No Have you or anyone in your house had to go without enough: No Transportation Issues: No Has anyone in your support network made you feel unsafe?: No Does the patient want assistance with any of the above?: No - Physical Exam Vital Signs: Vital Signs - 24 hr Temp Pulse Resp BP BP Pulse Ox 01/28/24 20:26 97.5 F 64 18 133/83 99 01/28/24 19:00 67 18 143/96 99 01/28/24 18:57 77 24 138/97 98 01/28/24 18:33 76 16 01/28/24 17:30 85 17 117/75 01/28/24 17:08 98.5 F 91 H 18 116/80 96 01/28/24 17:07 81 13 116/80 94 L Additional Findings: HEENT Young aged, average built in no distress NECK Supple,no thyromegaly, CVS S1+S2 + 0, no murmers RESP Bilateral equal air entry without Crepts/Wheezes heard GIT Soft non tender,non distended Skin, No rah, no Bruises LEGS No Edema PSYCH Normal,m ood, judgement and insight NEURO AOX3, no focal deficit 01/28/24 20:52 Results - Labs Lab/Micro Results: Lab Results-Last 24 Hours 01/28/24 01/28/24 01/28/24 Range/Units 17:50 18:24 18:24 WBC 7.3 (4.0-10.5) x10^3/uL RBC 4.94 (4.1-5.4) x10^6/uL Hgb 13.9 (12.0-16.0) g/dL Hct 44.2 (35-47) % MCV 89.5 (78-100) fL MCH 28.1 (26-32) pg MCHC 31.4 L (32-36) g/dL RDW 12.3 (11.5-14.0) % Plt Count 167 (150-450) x10^3/uL MPV 11.4 H (7.5-11.0) fL Gran % 62.6 (36.0-66.0) % Immature Gran % (Auto) 0.3 (0.00-0.4) % Nucleat RBC Rel Count 0.0 (0.00-0.1) % Eos # (Auto) 0.09 (0-0.5) x10^3/uL Immature Gran # (Auto) 0.02 (0.00-0.03) x10^3u/L Absolute Lymphs (auto) 2.04 (1.0-4.6) x10^3/uL Absolute Monos (auto) 0.52 (0.0-1.3) x10^3/uL Absolute Nucleated RBC 0.00 (0.00-0.01) x10^3u/L Lymphocytes % 28.1 (24.0-44.0) % Monocytes % 7.2 (0.0-12.0) % Eosinophils % 1.2 (0.00-5.0) % Basophils % 0.6 (0.0-0.4) % Absolute Granulocytes 4.54 (1.4-6.9) x10^3/uL Basophils # 0.04 (0-0.4) x10^3/uL Sodium 140 (135-145) mmol/L Potassium 4.1 (3.5-5.1) mmol/L Chloride 106 (98-107) mmol/L Carbon Dioxide 24 (22-30) mmol/L Anion Gap 13.2 (5-15) MEQ/L BUN 16 (7-17) mg/dL Creatinine 1.25 H (0.52-1.04) mg/dL Estimated GFR 55.9 ML/MIN Glucose 88 (74-106) mg/dL Lactic Acid 2.6 H (0.4-2.0) Calcium 9.1 (8.4-10.2) mg/dL Total Bilirubin 0.30 (0.2-1.3) mg/dL AST 25 (14-36) U/L ALT 20 (0-35) U/L Alkaline Phosphatase 45 (38-126) U/L Serum Total Protein 7.2 (6.3-8.2) g/dL Albumin 4.0 (3.5-5.0) g/dL Assessment/Plan (1) Acute pyelonephritis Current Visit: Yes Status: Acute Code(s): N10 - ACUTE PYELONEPHRITIS (2) Hypertension Current Visit: Yes Status: Acute Code(s): I10 - ESSENTIAL (PRIMARY) HYPERTENSION (3) Hypertension Current Visit: Yes Status: Chronic Code(s): I10 - ESSENTIAL (PRIMARY) HYPERTENSION (4) Fibromyalgia Current Visit: Yes Status: Chronic Telemedicine Encounter - Telemedicine Encounter Telemedicine Encounter: The entirety of this encounter was performed via Telemedicine" PLAN Acute Pyelonephritis -Pt not septic at the time of admit -Urine cultures from 01/25 growing ESBL, sensitivities noted -Started on meropenem (with bennadryl dose ) -Plan to arrange Fosfomycin in am followed by discharge plan -Will follow up blood cultures -C/w Hydration -C/w morphine 2mg iv every 4 hrly pen for pain -Will consider imaging if SX persists Chronic kidney stage 3A - Cr stable at 1.25 -Pt f/u with nephrology closely as out pt -Keep avoiding nephrotoxins Hypertension -Bp stable, pt takes losartan at home -will Keep holding it for now, keep watching BP closely Fibromyalgia -Continue Home meds including Cymbalta + amitryptaline Dvt PPX SCd only/Encourage mobilization Code Status Full Discharge planning,Pending clinically stability
[2024-01-28] MEDS: Compazine 10 MG/2 ML IV PRN (20:57)
[2024-01-28] MEDS: Sodium Chloride 0.9% 1000 ML 1,000 ML IV SCH (20:57)
[2024-01-28] MEDS: MORPHINE SULFATE 4 MG INJ IV PRN (20:58)
[2024-01-28] MEDS ORDERED: [UNRECOGNIZED DRUG - OTHER] PO SCH (21:15)
[2024-01-28] MEDS ORDERED: BUTALBIT PO SCH (21:15)
[2024-01-28] MEDS ORDERED: CODEINE PO SCH (21:15)
[2024-01-28] MEDS ORDERED: ACETAMIN PO SCH (21:15)
[2024-01-28] MEDS ORDERED: CAFF PO SCH (21:15)
--- NOTE | 2024-01-28 21:15 | PCM.HP ---
History of Present Illness - Chief Complaint Chief Complaint: ESBL UTI Date: 01/28/24 History of Present Illness: is a 38 year old female.with PMh significant for HTN In thr ER Her V/s were stable, Medications & Allergies Home Medications: Home Medication List Duloxetine HCl 30 mg [Cymbalta 30 MG Capsule] 60 mg PO DAILY 01/15/23 [History Confirmed 01/28/24] Losartan Potassium [Cozaar] 12.5 mg PO HS 01/15/23 [History Confirmed 01/28/24] Oxycodone HCl/Acetaminophen [Oxycodone-Acetaminophn 7.5-325] 1 tab PO QID PRN PRN 01/15/23 [History Confirmed 01/28/24] Amitriptyline HCl 25 mg [Amitriptyline 25 mg Tablet] 25 mg PO HS 01/28/24 [History Confirmed 01/28/24] Butalbit/Acetamin/Caff/Codeine [Fioricet-Cod 56-626-69-30 Cap] 1 each PO BID PRN 01/28/24 [History Confirmed 01/28/24] Magnesium Oxide [Magnesium] 400 mg PO HS 01/28/24 [History Confirmed 01/28/24] Simvastatin 5 mg PO HS 01/28/24 [History Confirmed 01/28/24] Allergies/Adverse Reactions: Allergies Allergy/AdvReac Type Severity Reaction Status Date / Time Cephalosporins Allergy Verified 01/28/24 17:03 latex Allergy Verified 01/28/24 17:03 metoclopramide [From Reglan] Allergy Verified 01/28/24 17:03 nitrofurantoin Allergy Verified 01/28/24 17:42 ondansetron [From Zofran] Allergy Verified 01/28/24 17:03 Penicillins Allergy Verified 01/28/24 17:03 Sulfa (Sulfonamide Allergy Verified 01/28/24 17:03 Antibiotics) Tetracyclines Allergy Verified 01/28/24 17:03 - Past Medical History Past Medical History: Yes Neurological History: Migraines ENT History: No Pertinent History Cardiac History: High Cholesterol Respiratory History: No Pertinent History Endocrine Medical History: No Pertinent History Musculoskelatal History: Fractures GI Medical History: Other History: Renal Disease, Other Pyscho-Social History: Depression Reproductive Disorders: Other Comment: PTSD, urinary retention (patient has been straight cathing herself since the age of 5), chronic renal disease ([employer]: Dr. Ross), COVID, History of 7 small bowel obstructions with 3 requiring surgical intervention - Female History Hx Last Menstrual Period: IUD Are you now?: No - Past Surgical History Past Surgical History: Yes Neuro Surgical History: No Pertinent History Cardiac History: No Pertinent History Respiratory Surgery: No Pertinent History GI Surgical History: Bowel Surgery Genitourinary Surgical Hx: Kidney Surgery, Other Musculskeletal Surgical Hx: Orthopedic Surgery Other Surgical History: History of 7 small bowel obstructions with 3 requiring surgical intervention, bladder augmentation at age 8, right kidney removed at age 6, urinary retention since age 5, Right nephrectomy, renal stents,, left elbow shattered w/ pins and rods placed - Social History Smoking Status: Never smoker Exposure to second hand smoke: No Alcohol: Rarely Drug Use: none - Social Determinants of Health Will the patient participate in the screening: Yes Do you worry about a steady place to live?: No Do you have any problems with any of the following?: No known problems In the past 12 months,have you had to go without utilities?: No Have you or anyone in your house had to go without enough: No Transportation Issues: No Has anyone in your support network made you feel unsafe?: No - Physical Exam Vital Signs: Vital Signs - 24 hr Temp Pulse Resp BP BP Pulse Ox 01/28/24 19:00 67 18 143/96 99 01/28/24 18:57 77 24 138/97 98 01/28/24 18:33 76 16 01/28/24 17:30 85 17 117/75 01/28/24 17:08 98.5 F 91 H 18 116/80 96 01/28/24 17:07 81 13 116/80 94 L Results - Labs Lab/Micro Results: Lab Results-Last 24 Hours 01/28/24 01/28/24 01/28/24 Range/Units 17:50 18:24 18:24 WBC 7.3 (4.0-10.5) x10^3/uL RBC 4.94 (4.1-5.4) x10^6/uL Hgb 13.9 (12.0-16.0) g/dL Hct 44.2 (35-47) % MCV 89.5 (78-100) fL MCH 28.1 (26-32) pg MCHC 31.4 L (32-36) g/dL RDW 12.3 (11.5-14.0) % Plt Count 167 (150-450) x10^3/uL MPV 11.4 H (7.5-11.0) fL Gran % 62.6 (36.0-66.0) % Immature Gran % (Auto) 0.3 (0.00-0.4) % Nucleat RBC Rel Count 0.0 (0.00-0.1) % Eos # (Auto) 0.09 (0-0.5) x10^3/uL Immature Gran # (Auto) 0.02 (0.00-0.03) x10^3u/L Absolute Lymphs (auto) 2.04 (1.0-4.6) x10^3/uL Absolute Monos (auto) 0.52 (0.0-1.3) x10^3/uL Absolute Nucleated RBC 0.00 (0.00-0.01) x10^3u/L Lymphocytes % 28.1 (24.0-44.0) % Monocytes % 7.2 (0.0-12.0) % Eosinophils % 1.2 (0.00-5.0) % Basophils % 0.6 (0.0-0.4) % Absolute Granulocytes 4.54 (1.4-6.9) x10^3/uL Basophils # 0.04 (0-0.4) x10^3/uL Sodium 140 (135-145) mmol/L Potassium 4.1 (3.5-5.1) mmol/L Chloride 106 (98-107) mmol/L Carbon Dioxide 24 (22-30) mmol/L Anion Gap 13.2 (5-15) MEQ/L BUN 16 (7-17) mg/dL Creatinine 1.25 H (0.52-1.04) mg/dL Estimated GFR 55.9 ML/MIN Glucose 88 (74-106) mg/dL Lactic Acid 2.6 H (0.4-2.0) Calcium 9.1 (8.4-10.2) mg/dL Total Bilirubin 0.30 (0.2-1.3) mg/dL AST 25 (14-36) U/L ALT 20 (0-35) U/L Alkaline Phosphatase 45 (38-126) U/L Serum Total Protein 7.2 (6.3-8.2) g/dL Albumin 4.0 (3.5-5.0) g/dL Telemedicine Encounter - Telemedicine Encounter Telemedicine Encounter: The entirety of this encounter was performed via Telemedicine"
[2024-01-28] MEDS ORDERED: Sterile H2O 10 ml IJ ONE (21:56)
[2024-01-28] MEDS ORDERED: solu-MEDROL ONE (21:56)
[2024-01-28] MEDS: solu-MEDROL 80 MG, Sterile H2O 10 ml 2 ML IV SCH (21:58)
[2024-01-28] MEDS: BENADRYL 50 MG/ML IV SCH (21:59)
[2024-01-28] MEDS ORDERED: MAG-OX 400 ONE (22:29)
[2024-01-28] MEDS ORDERED: Merrem IV ONE (22:29)
[2024-01-28] MEDS ORDERED: Zocor 10MG ONE (22:29)
[2024-01-28] MEDS ORDERED: Sodium Chloride 100ML MINI-BAG PLUS 100 ML IV ONE (22:31)
[2024-01-28] MEDS: AMITRIPTYLINE 25 MG TABLET PO SCH (22:36)
[2024-01-28] MEDS: MAG-OX 400 PO SCH (22:39)
[2024-01-28] MEDS: Merrem 1 GM in Sodium Chloride 100ML MINI-BAG PLUS 100 ML IV SCH (22:40)
[2024-01-28] MEDS: Zocor 10MG PO SCH (22:42)
[2024-01-28] MEDS: TYLENOL 325 MG PO PRN (23:57)
[2024-01-29] MEDS: NON-FORMULARY ITEM (Simvastatin [Simvastatin] 5 MG Tablet) PO SCH (01:34)
[2024-01-29] MEDS: NON-FORMULARY ITEM (Magnesium Oxide [Magnesium] 400 MG Tablet) PO SCH (01:34)
[2024-01-29] MEDS: Merrem 1 GM in Sodium Chloride 100ML MINI-BAG PLUS 100 ML IV SCH (01:43)
[2024-01-29] MEDS: Sodium Chloride 0.9% 1000 ML 1,000 ML IV SCH (03:02)
[2024-01-29] MEDS ORDERED: Sterile H2O 10 ml IJ ONE (05:14)
[2024-01-29] MEDS ORDERED: solu-MEDROL ONE (05:14)
[2024-01-29 05:35] LABS: Absolute Neutrophil Ct (ANC) 7.99 x10^3/uL (1.4-6.9); BASOPHIL % 0.1 % (0.0-0.4); Basophil (Absolute #) 0.01 x10^3/uL (0-0.4); Eosinophil (Absolute #) 0 x10^3/uL (0-0.5); Hematocrit 43.7 % (35-47); Hemoglobin 13.8 g/dL (12.0-16.0); IMMATURE GRAN # 0.03 x10^3u/L (0.00-0.03); IMMATURE GRAN % 0.3 % (0.00-0.4); Lymphocyte (Absolute #) 0.67 x10^3/uL (1.0-4.6); Lymphocytes % 7.7 % (24.0-44.0); Mean Cell Volume 88.5 fL (78-100); Mean Corpuscular Hemoglobin 27.9 pg (26-32); Mean Corpuscular Hgb Concent. 31.6 g/dL (32-36); Mean Platelet Volume 11.5 fL (7.5-11.0); Monocyte (Absolute #) 0.04 x10^3/uL (0.0-1.3); Monocytes % 0.5 % (0.0-12.0); Neutrophil % 91.4 % (36.0-66.0); Platelet Count 173 x10^3/uL (150-450); Red Blood Count 4.94 x10^6/uL (4.1-5.4); Red Cell Distribution Width 12.3 % (11.5-14.0); White Blood Count 8.7 x10^3/uL (4.0-10.5)
[2024-01-29 05:53] LABS: ALBUMIN 3.5 g/dL (3.5-5.0); Calcium 9.2 mg/dL (8.4-10.2); Creatinine 1 1.89 mg/dL (0.52-1.04); PHOSPHOROUS 3.1 mg/dL (2.5-4.5); Potassium 4.1 mmol/L (3.5-5.1)
[2024-01-29] MEDS ORDERED: Merrem IV ONE (06:11)
[2024-01-29] MEDS ORDERED: Sodium Chloride 100ML MINI-BAG PLUS 100 ML IV ONE (06:12)
[2024-01-29] MEDS ORDERED: MEDICATION INTERVENTION MC SCH (07:45)
[2024-01-29] MEDS ORDERED: NON-FORMULARY ITEM (Oxycodone Hcl/Acetaminophen [Oxycodone-Acetaminophn 7.5-325] 1 EACH Ta PO PRN (08:26)
[2024-01-29] MEDS: Cymbalta 30 MG Capsule PO SCH (08:41)
[2024-01-29] MEDS: SODIUM BICARBONATE PO SCH (08:41)
[2024-01-29] MEDS ORDERED: Narcan 0.4 MG/ML IV PRN (10:55)
--- NOTE | 2024-01-29 10:59 | PCM.NOTE ---
Date and Time: 01/29/24 1049 Subjective Assessment: 01/29/24 is a 38 year old female with PMH significant for HTN, fibromyalgia, PCKD, chronic lumbar pain ( follows pain mgnt, Dr. Menchaca), and recurrent UTI's since age of 5 since had bladder surgery and self caths. She came to ER on 01/25 for UTI Symptoms, discharged home on cipro and cultures were sent. She was called back for admit on 01/27 due to urine cultures growing ESBL/ e-coli and pt was not able to tolerate any ABX due to multiple allergies.She is reporting c/o fever, dysuria, hematuria and right side flank pain. She denies chest pain ,SOB or any other GIT/Urinary SX reported. In the ER, she was not septic, v/s were stable and labs were essentially negative. She received initial dose of meropenem after benadryl and steriod injection and admitted for further care. We have continued this same regimen IP. Will order CT abd/pelvis d/t her hx for further evaluation. Her pain is uncontrolled with morphine alone and restarted her daily oral narcotic pain medication. She explained the oral medication alone she takes OP will not resolve her pain therefore continued morphine as well. E xplained if she becomes sleepy or sedated we will decrease morphine dose. Narcan added PRN. Carbon dioxide 18 oral sodium bicarb ordered. She does have some BENJI 2:2 UTI - will continue IVF. Consider d/c with Fosfomycin tomorrow. - Review of Systems Constitutional: No Fever, No Chills Eyes: No Symptoms Ears, Nose, & Throat: No Symptoms Respiratory: No Cough, No Short Of Breath Cardiac: No Chest Pain, No Edema, No Syncope Abdominal/Gastrointestinal: Abdominal Pain, Nausea, Vomiting, Other (Left flank), No Diarrhea Genitourinary Symptoms: No Dysuria Musculoskeletal: No Back Pain, No Neck Pain Skin: No Rash Neurological: No Dizziness, No Focal Weakness, No Sensory Changes Psychological: No Symptoms Endocrine: No Symptoms Hematologic/Lymphatic: No Symptoms Immunological/Allergic: No Symptoms Objective Exam General Appearance: no apparent distress, alert Neurologic Exam: alert, oriented x 3, cooperative, normal mood/affect, nml cerebellar function, sensation nml, No motor deficits Skin Exam: normal color, warm, dry Eye Exam: PERRL, EOMI, eyes nml inspection Ears, Nose, Throat Exam: normal ENT inspection, pharynx normal, moist mucous membranes Neck Exam: normal inspection, non-tender, supple, full range of motion Respiratory Exam: normal breath sounds, lungs clear, No respiratory distress Cardiovascular Exam: regular rate/rhythm, normal heart sounds Gastrointestinal/Abdomen Exam: soft, No tenderness, No mass Extremity Exam: normal inspection, normal range of motion Back Exam: normal inspection, normal range of motion, CVA tenderness (Left), No vertebral tenderness Pelvic Exam: deferred Rectal Exam: deferred Objective Data Vital Signs: Vital Signs - 24 hr Temp Pulse Resp BP BP Pulse Ox 01/29/24 08:00 98.1 F 82 16 113/70 99 01/29/24 04:00 96.8 F 72 16 112/71 99 01/28/24 23:44 97.0 F 82 16 125/69 100 01/28/24 20:26 97.5 F 64 18 133/83 99 01/28/24 19:00 67 18 143/96 99 01/28/24 18:57 77 24 138/97 98 01/28/24 18:33 76 16 01/28/24 17:30 85 17 117/75 01/28/24 17:08 98.5 F 91 H 18 116/80 96 01/28/24 17:07 81 13 116/80 94 L Pain Assessment - Last Documented Pain Intensity 8 Pain Scale Used 0-10 Pain Scale Intake and Output: Intake & Output 01/26/24 01/27/24 01/28/24 01/29/24 11:59 11:59 11:59 11:59 Intake Total 1981 Output Total 1400 Balance 581 Weight 77.5 kg Lab Results: Lab Results-Last 24 Hours 01/28/24 01/28/24 01/28/24 Range/Units 17:50 18:24 18:24 WBC 7.3 (4.0-10.5) x10^3/uL RBC 4.94 (4.1-5.4) x10^6/uL Hgb 13.9 (12.0-16.0) g/dL Hct 44.2 (35-47) % MCV 89.5 (78-100) fL MCH 28.1 (26-32) pg MCHC 31.4 L (32-36) g/dL RDW 12.3 (11.5-14.0) % Plt Count 167 (150-450) x10^3/uL MPV 11.4 H (7.5-11.0) fL Gran % 62.6 (36.0-66.0) % Immature Gran % (Auto) 0.3 (0.00-0.4) % Nucleat RBC Rel Count 0.0 (0.00-0.1) % Eos # (Auto) 0.09 (0-0.5) x10^3/uL Immature Gran # (Auto) 0.02 (0.00-0.03) x10^3u/L Absolute Lymphs (auto) 2.04 (1.0-4.6) x10^3/uL Absolute Monos (auto) 0.52 (0.0-1.3) x10^3/uL Absolute Nucleated RBC 0.00 (0.00-0.01) x10^3u/L Lymphocytes % 28.1 (24.0-44.0) % Monocytes % 7.2 (0.0-12.0) % Eosinophils % 1.2 (0.00-5.0) % Basophils % 0.6 (0.0-0.4) % Absolute Granulocytes 4.54 (1.4-6.9) x10^3/uL Basophils # 0.04 (0-0.4) x10^3/uL Sodium 140 (135-145) mmol/L Potassium 4.1 (3.5-5.1) mmol/L Chloride 106 (98-107) mmol/L Carbon Dioxide 24 (22-30) mmol/L Anion Gap 13.2 (5-15) MEQ/L BUN 16 (7-17) mg/dL Creatinine 1.25 H (0.52-1.04) mg/dL Estimated GFR 55.9 ML/MIN Glucose 88 (74-106) mg/dL Hemoglobin A1c (4.5-6.0) % Lactic Acid 2.6 H (0.4-2.0) Calcium 9.1 (8.4-10.2) mg/dL Phosphorus (2.5-4.5) mg/dL Total Bilirubin 0.30 (0.2-1.3) mg/dL AST 25 (14-36) U/L ALT 20 (0-35) U/L Alkaline Phosphatase 45 (38-126) U/L Serum Total Protein 7.2 (6.3-8.2) g/dL Albumin 4.0 (3.5-5.0) g/dL 01/28/24 01/29/24 01/29/24 Range/Units 20:30 05:10 05:15 WBC 8.7 (4.0-10.5) x10^3/uL RBC 4.94 (4.1-5.4) x10^6/uL Hgb 13.8 (12.0-16.0) g/dL Hct 43.7 (35-47) % MCV 88.5 (78-100) fL MCH 27.9 (26-32) pg MCHC 31.6 L (32-36) g/dL RDW 12.3 (11.5-14.0) % Plt Count 173 (150-450) x10^3/uL MPV 11.5 H (7.5-11.0) fL Gran % 91.4 H (36.0-66.0) % Immature Gran % (Auto) 0.3 (0.00-0.4) % Nucleat RBC Rel Count 0.0 (0.00-0.1) % Eos # (Auto) 0 (0-0.5) x10^3/uL Immature Gran # (Auto) 0.03 (0.00-0.03) x10^3u/L Absolute Lymphs (auto) 0.67 L (1.0-4.6) x10^3/uL Absolute Monos (auto) 0.04 (0.0-1.3) x10^3/uL Absolute Nucleated RBC 0.00 (0.00-0.01) x10^3u/L Lymphocytes % 7.7 L (24.0-44.0) % Monocytes % 0.5 (0.0-12.0) % Eosinophils % 0.0 (0.00-5.0) % Basophils % 0.1 (0.0-0.4) % Absolute Granulocytes 7.99 H (1.4-6.9) x10^3/uL Basophils # 0.01 (0-0.4) x10^3/uL Sodium (135-145) mmol/L Potassium (3.5-5.1) mmol/L Chloride (98-107) mmol/L Carbon Dioxide (22-30) mmol/L Anion Gap (5-15) MEQ/L BUN (7-17) mg/dL Creatinine (0.52-1.04) mg/dL Estimated GFR ML/MIN Glucose (74-106) mg/dL Hemoglobin A1c 5.00 (4.5-6.0) % Lactic Acid 1.6 (0.4-2.0) Calcium (8.4-10.2) mg/dL Phosphorus (2.5-4.5) mg/dL Total Bilirubin (0.2-1.3) mg/dL AST (14-36) U/L ALT (0-35) U/L Alkaline Phosphatase (38-126) U/L Serum Total Protein (6.3-8.2) g/dL Albumin (3.5-5.0) g/dL 01/29/24 Range/Units 05:15 WBC (4.0-10.5) x10^3/uL RBC (4.1-5.4) x10^6/uL Hgb (12.0-16.0) g/dL Hct (35-47) % MCV (78-100) fL MCH (26-32) pg MCHC (32-36) g/dL RDW (11.5-14.0) % Plt Count (150-450) x10^3/uL MPV (7.5-11.0) fL Gran % (36.0-66.0) % Immature Gran % (Auto) (0.00-0.4) % Nucleat RBC Rel Count (0.00-0.1) % Eos # (Auto) (0-0.5) x10^3/uL Immature Gran # (Auto) (0.00-0.03) x10^3u/L Absolute Lymphs (auto) (1.0-4.6) x10^3/uL Absolute Monos (auto) (0.0-1.3) x10^3/uL Absolute Nucleated RBC (0.00-0.01) x10^3u/L Lymphocytes % (24.0-44.0) % Monocytes % (0.0-12.0) % Eosinophils % (0.00-5.0) % Basophils % (0.0-0.4) % Absolute Granulocytes (1.4-6.9) x10^3/uL Basophils # (0-0.4) x10^3/uL Sodium 138 (135-145) mmol/L Potassium 4.1 (3.5-5.1) mmol/L Chloride 110 H (98-107) mmol/L Carbon Dioxide 18 L (22-30) mmol/L Anion Gap 14.0 (5-15) MEQ/L BUN 14 (7-17) mg/dL Creatinine 1.89 H (0.52-1.04) mg/dL Estimated GFR 34.0 ML/MIN Glucose 151 H (74-106) mg/dL Hemoglobin A1c (4.5-6.0) % Lactic Acid (0.4-2.0) Calcium 9.2 (8.4-10.2) mg/dL Phosphorus 3.1 (2.5-4.5) mg/dL Total Bilirubin (0.2-1.3) mg/dL AST (14-36) U/L ALT (0-35) U/L Alkaline Phosphatase (38-126) U/L Serum Total Protein (6.3-8.2) g/dL Albumin 3.5 (3.5-5.0) g/dL Radiology Exams: Radiology Procedures Category Date Time Status ABDOMEN AND PELVIS W/0 CONTRAS [CT] Stat Exams 01/29/24 09:47 Taken Assessment/Plan (1) UTI due to extended-spectrum beta lactamase (ESBL) producing Escherichia coli Current Visit: Yes Status: Acute Assessment & Plan: - Repeat UA with C&S today - Urine cultures from 01/25 growing ESBL E-coli - reviewed sensitivities - Pt has a repeat hx of ESBL E-coli per old records- Consider referral to Infectious disease at d/c. - Pt does straight cath since age of 5 - Meropenem (with Benadryl and steroid dose prior to antibiotic )- pt reported some itching but tolerable - Plan to arrange Fosfomycin at d/c discharge - follow up blood culture pending - C/w IV Hydration - C/w morphine 2mg iv every 4 hrly prn for pain - CT abd/ pelvis- pending - Compazine for nausea Code(s): N39.0 - URINARY TRACT INFECTION, SITE NOT SPECIFIED; B96.29 - OTH ESCHERICHIA COLI THE CAUSE OF DISEASES CLASSD ELSWHR; Z16.12 - EXTENDED SPECTRUM BETA LACTAMASE (ESBL) RESISTANCE (2) Abdominal pain Current Visit: Yes Status: Acute Assessment & Plan: - 2:2 UTI - CT abd pelvis - pending Code(s): R10.9 - UNSPECIFIED ABDOMINAL PAIN (3) Left flank pain Current Visit: Yes Status: Acute Assessment & Plan: - CT abd pelvis pending - Morphine IV PRN breakthrough pain - Narcan PRN Code(s): R10.9 - UNSPECIFIED ABDOMINAL PAIN (4) Acute on chronic kidney failure Current Visit: Yes Status: Acute Assessment & Plan: - Creat 1.89, baseline 1.25 after reviweing old records - She follows Dr. Heck - nephrology Op - IVF Code(s): N17.9 - ACUTE KIDNEY FAILURE, UNSPECIFIED; N18.9 - CHRONIC KIDNEY DISEASE, UNSPECIFIED (5) Carbon dioxide, decreased level Current Visit: Yes Status: Acute Assessment & Plan: - 2:2 BENJI- cont IVF - oral sodium bicarb BID started Code(s): R79.81 - ABNORMAL BLOOD-GAS LEVEL (6) Chronic pain Current Visit: Yes Status: Chronic Assessment & Plan: - Continue percocet - Follows Dr. Menchaca Op for pain management - Tele VTE: SCD's Next of KIN: Martha Dunn [phone] D/C plan: tomorrow? Code status: Full Code(s): G89.29 - OTHER CHRONIC PAIN
[2024-01-29] MEDS: PERCOCET TABLET 5/325MG PO PRN (11:05)
--- NOTE | 2024-01-29 11:42 | XRAY ---
CLINICAL HISTORY: abd pain COMPARISON: None. TECHNIQUE: A CT scan of the abdomen and pelvis was performed without IV contrast. Coronal and sagittal reconstructive images were also obtained. FINDINGS: Limited study due to the lack of intravenous contrast administration. The left kidney appears enlarged, lobulated likely compensatory hypertrophy. No significant hydronephrosis or stones. The proximal left ureter appears prominent with no obstructing calculus seen throughout the left ureter. Status post right nephrectomy with a clear surgical bed. The urinary bladder is adequately distended with irregular outer margins consistent with bladder augmentation surgery. No stones or masses inside. A cystic area measuring 2.3 x 3.9 cm is seen on the right side of the urinary bladder. IUCD is seen in endometrium however Sonography is the modality of choice. The liver is normal in size. No focal or diffuse parenchymal abnormality. The portal vein, intrahepatic biliary radicals, and the bile ducts are normal. The spleen, pancreas, and adrenal glands are unremarkable. The gallbladder is normal. No pericholecystic collection or radiodense calculi in the gall bladder. Appendix is not visualized status post surgery. Surgical clips with anastomosis are seen in the visualized bowel in the right fossa likely due to prior intervention. There is no evidence of significant enlargement of the mesenteric or retroperitoneal lymph nodes. No evidence of pelvic lymphadenopathy. A tiny sclerotic focus is seen in the L3 vertebral body. Atelectatic bands were seen in both lung bases. IMPRESSION: 1. Right nephrectomy with a clear surgical bed. 2. Compensatory hypertrophy of the left kidney. 3. Post-surgical changes on the urinary bladder. 4. A cystic area measuring 2.3 x 3.9 cm adjacent to the right wall of the urinary bladder could be an ovarian cyst versus a urinary bladder diverticulum. US and contrast-enhanced CT are advised. 5. A tiny sclerotic focus is seen in the L3 vertebral body. Electronically Signed by: Jose Antonio Lopez MD. (01/29/2024 11:38:25 EDT)
[2024-01-29 15:14] LABS: Appearance Clear (Clear); Bilirubin Negative (Negative); Blood Negative (Negative); Epithelial Cells None Seen /HPF (None Seen); Glucose, Urine 500 mg/dL (Negative); Hyaline Casts NONE SEEN /LPF (0-2); Ketones Negative (Negative); Leukocyte Esterase Negative (Negative); Nitrite Negative (Negative); Ph 6.5 (4.6-8.0); Protein,Urine Dip 100 (Negative); RBC 0-2 /HPF (0-5); Specific Gravity 1.015 (1.005-1.030); Urobilinogen 0.2 mg/dL (0.2)
[2024-01-29 15:16] LABS: ADD URINE CULTURE? ORDERED SEPARATELY (NO); Bacteria Many /HPF (None Seen)
[2024-01-29] MEDS: Compazine 5 MG PO ONE (16:05)
--- NOTE | 2024-01-29 21:46 | XRAY ---
CLINICAL HISTORY: central line placement COMPARISON: None. TECHNIQUE: X-ray of the chest was performed in 1 view: AP projection. FINDINGS: The tip of the right-sided central catheter is seen within the distal third of the SVC. External cardiac monitorization wires are noted. The lungs are well aerated. No hydrothorax or pneumothorax is seen. No fracture is seen. There is no evidence of any focal area of consolidation. The hilar and pulmonary vasculature is normal. The heart size is within normal limits. The costophrenic angles are clear. IMPRESSION: No acute cardiopulmonary pathology is identified. Electronically Signed by: Jose Antonio Lopez MD. (01/29/2024 21:41:23 EDT)
[2024-01-30 04:57] LABS: Hemoglobin 13.5 g/dL (12.0-16.0); Mean Cell Volume 87.9 fL (78-100); Mean Corpuscular Hemoglobin 28.2 pg (26-32); Mean Corpuscular Hgb Concent. 32.1 g/dL (32-36); Mean Platelet Volume 11.8 fL (7.5-11.0); Platelet Count 179 x10^3/uL (150-450); Red Blood Count 4.78 x10^6/uL (4.1-5.4); Red Cell Distribution Width 12.4 % (11.5-14.0); White Blood Count 20.1 x10^3/uL (4.0-10.5)
[2024-01-30 05:14] LABS: ALBUMIN 3.4 g/dL (3.5-5.0); ANION GAP 11.5 MEQ/L (5-15); BILIRUBIN,TOTAL 0.4 mg/dL (0.2-1.3); Calcium 8.9 mg/dL (8.4-10.2); Creatinine 1 1.13 mg/dL (0.52-1.04); EST GLOMERULAR FILTRATION RATE 63.1 ML/MIN; Potassium 4.3 mmol/L (3.5-5.1); Total Protein 6.6 g/dL (6.3-8.2)
[2024-01-30 07:29] VITALS: RESP 16
[2024-01-30 08:38] LABS: Hematocrit 43.3 % (35-47); Hemoglobin 14.1 g/dL (12.0-16.0); Mean Cell Volume 87.5 fL (78-100); Mean Corpuscular Hemoglobin 28.5 pg (26-32); Mean Corpuscular Hgb Concent. 32.6 g/dL (32-36); Mean Platelet Volume 11.6 fL (7.5-11.0); Platelet Count 185 x10^3/uL (150-450); Red Blood Count 4.95 x10^6/uL (4.1-5.4); Red Cell Distribution Width 12.3 % (11.5-14.0); White Blood Count 20.9 x10^3/uL (4.0-10.5)
--- NOTE | 2024-01-30 09:12 | PCM.DS ---
Discharge Summary Date of Admission: 01/28/24 20:07 Date of Discharge: 01/30/24 Admitting Physician: SHAW SIMMONS MD Consults: Consults on Case 01/28/24 20:49 Case Management [facility] Needs Assessment ROUTINE Primary Care Provider: KADI PETERSON Allergies Allergies Cephalosporins Allergy (Verified 01/28/24 17:03) latex Allergy (Verified 01/28/24 17:03) metoclopramide [From Reglan] Allergy (Verified 01/28/24 17:03) nitrofurantoin Allergy (Verified 01/28/24 17:42) ondansetron [From Zofran] Allergy (Verified 01/28/24 17:03) Penicillins Allergy (Verified 01/28/24 17:03) Sulfa (Sulfonamide Antibiotics) Allergy (Verified 01/28/24 17:03) Tetracyclines Allergy (Verified 01/28/24 17:03) Hospital Summary - Hospital Course Hospital Course: 01/29/24 is a 38 year old female with PMH significant for HTN, fibromyalgia, PCKD, chronic lumbar pain ( follows pain mgnt, Dr. Menchaca), and recurrent UTI's since age of 5 since had bladder surgery and self caths. She came to ER on 01/25 for UTI Symptoms, discharged home on cipro and cultures were sent. She was called back for admit on 01/27 due to urine cultures growing ESBL/ e-coli and pt was not able to tolerate any ABX due to multiple allergies.She is reporting c/o fever, dysuria, hematuria and right side flank pain. She denies chest pain ,SOB or any other GIT/Urinary SX reported. In the ER, she was not septic, v/s were stable and labs were essentially negative. She received initial dose of meropenem after benadryl and steriod injection and admitted for further care. We have continued this same regimen IP. Will order CT abd/pelvis d/t her hx for further evaluation. Her pain is uncontrolled with morphine alone and restarted her daily oral narcotic pain medication. She explained the oral medication alone she takes OP will not resolve her pain therefore continued morphine as well. Explained if she becomes sleepy or sedated we will decrease morphine dose. Narcan added PRN. Carbon dioxide 18 oral sodium bicarb ordered. She does have some BENJI 2:2 UTI - will continue IVF. Consider d/c with Fosfomycin tomorrow. 01/30/24 Pt resting in bed. Urine culture came back negative. Blood culture x1 negative. There were abnormal findings on CT, however these findings are not new as seen on old records reviewed. She did have some N/V last night. Creatinine appears to be better than baseline. WBC elevated, most likely reactive from N/V. Pt has been afebrile and pain improved. CT did not show pyleonephritis. Will d/c with antibiotics. She denies CP, SOB, abd pain, N/V/D. She does not referral to a urologist and stated her PCP is making her an appointment. - Vitals & Intake/Output Vital Signs: Vital Signs Temperature 98.0 F 01/30/24 07:28 Pulse Rate 78 01/30/24 07:28 Respiratory Rate 16 01/30/24 07:28 Blood Pressure 144/92 01/30/24 07:28 O2 Sat by Pulse Oximetry 97 01/30/24 07:28 Intake & Output: Intake & Output 01/27/24 01/28/24 01/29/24 01/30/24 11:59 11:59 11:59 11:59 Intake Total 1981 3108 Output Total 1400 2600 Balance 581 508 Weight 77.5 kg - Lab Result Diagrams: 01/30/24 08:25 01/30/24 04:20 Lab Results-Last 24 Hrs: Lab Results-Last 24 Hours 01/29/24 01/29/24 01/30/24 Range/Units 05:10 14:00 04:20 WBC 20.1 H (4.0-10.5) x10^3/uL RBC 4.78 (4.1-5.4) x10^6/uL Hgb 13.5 (12.0-16.0) g/dL Hct 42.0 (35-47) % MCV 87.9 (78-100) fL MCH 28.2 (26-32) pg MCHC 32.1 (32-36) g/dL RDW 12.4 (11.5-14.0) % Plt Count 179 (150-450) x10^3/uL MPV 11.8 H (7.5-11.0) fL Sodium (135-145) mmol/L Potassium (3.5-5.1) mmol/L Chloride (98-107) mmol/L Carbon Dioxide (22-30) mmol/L Anion Gap (5-15) MEQ/L BUN (7-17) mg/dL Creatinine (0.52-1.04) mg/dL Estimated GFR ML/MIN Glucose (74-106) mg/dL Hemoglobin A1c 5.00 (4.5-6.0) % Calcium (8.4-10.2) mg/dL Total Bilirubin (0.2-1.3) mg/dL AST (14-36) U/L ALT (0-35) U/L Alkaline Phosphatase (38-126) U/L Serum Total Protein (6.3-8.2) g/dL Albumin (3.5-5.0) g/dL Urine Color Yellow (Yellow) Urine Appearance Clear (Clear) Urine pH 6.5 (4.6-8.0) Ur Specific [place] 1.015 (1.005-1.030) Urine Protein 100 A (Negative) Urine Glucose (UA) 500 A (Negative) mg/dL Urine Ketones Negative (Negative) Urine Blood Negative (Negative) Urine Nitrite Negative (Negative) Urine Bilirubin Negative (Negative) Urine Urobilinogen 0.2 (0.2) mg/dL Ur Leukocyte Esterase Negative (Negative) U Hyaline Cast (Auto) NONE SEEN (0-2) /LPF Urine Microscopic RBC 0-2 (0-5) /HPF Urine Microscopic WBC 11-20 A (0-5) /HPF Ur Epithelial Cells None Seen (None Seen) /HPF Urine Bacteria Many A (None Seen) /HPF Urine Culture Reflexed ORDERED SEPARATELY (NO) 01/30/24 01/30/24 Range/Units 04:20 08:25 WBC 20.9 H (4.0-10.5) x10^3/uL RBC 4.95 (4.1-5.4) x10^6/uL Hgb 14.1 (12.0-16.0) g/dL Hct 43.3 (35-47) % MCV 87.5 (78-100) fL MCH 28.5 (26-32) pg MCHC 32.6 (32-36) g/dL RDW 12.3 (11.5-14.0) % Plt Count 185 (150-450) x10^3/uL MPV 11.6 H (7.5-11.0) fL Sodium 136 (135-145) mmol/L Potassium 4.3 (3.5-5.1) mmol/L Chloride 106 (98-107) mmol/L Carbon Dioxide 23 (22-30) mmol/L Anion Gap 11.5 (5-15) MEQ/L BUN 19 H (7-17) mg/dL Creatinine 1.13 H (0.52-1.04) mg/dL Estimated GFR 63.1 ML/MIN Glucose 137 H (74-106) mg/dL Hemoglobin A1c (4.5-6.0) % Calcium 8.9 (8.4-10.2) mg/dL Total Bilirubin 0.40 (0.2-1.3) mg/dL AST 17 (14-36) U/L ALT 17 (0-35) U/L Alkaline Phosphatase 47 (38-126) U/L Serum Total Protein 6.6 (6.3-8.2) g/dL Albumin 3.4 L (3.5-5.0) g/dL Urine Color (Yellow) Urine Appearance (Clear) Urine pH (4.6-8.0) Ur Specific [place] (1.005-1.030) Urine Protein (Negative) Urine Glucose (UA) (Negative) mg/dL Urine Ketones (Negative) Urine Blood (Negative) Urine Nitrite (Negative) Urine Bilirubin (Negative) Urine Urobilinogen (0.2) mg/dL Ur Leukocyte Esterase (Negative) U Hyaline Cast (Auto) (0-2) /LPF Urine Microscopic RBC (0-5) /HPF Urine Microscopic WBC (0-5) /HPF Ur Epithelial Cells (None Seen) /HPF Urine Bacteria (None Seen) /HPF Urine Culture Reflexed (NO) Micro Results-Entire Visit: Microbiology 01/29/24 14:00 Urine Culture - Preliminary Catherized NO GROWTH TO DATE 01/28/24 22:20 Blood Culture - Preliminary Blood - Radiology Exams Ordered Rad Exams-Entire Visit: Radiology Procedures Category Date Time Status ABDOMEN AND PELVIS W/0 CONTRAS [CT] Stat Exams 01/29/24 09:47 Completed CHEST 1 VIEW (PORTABLE) Stat Exams 01/29/24 20:54 Completed Discharge Exam General Appearance: no apparent distress, alert Neurologic Exam: alert, oriented x 3, cooperative, normal mood/affect, nml cereb ellar function, sensation nml, No motor deficits Eye Exam: PERRL, EOMI, eyes nml inspection Ears, Nose, Throat Exam: normal ENT inspection, pharynx normal, moist mucous membranes Neck Exam: normal inspection, non-tender, supple, full range of motion Respiratory Exam: normal breath sounds, lungs clear, No respiratory distress Cardiovascular Exam: regular rate/rhythm, normal heart sounds Gastrointestinal/Abdomen Exam: soft, No tenderness, No mass Pelvic Exam: deferred Rectal Exam: deferred Back Exam: normal inspection, normal range of motion, No CVA tenderness, No vertebral tenderness Extremity Exam: normal inspection, normal range of motion Skin Exam: normal color, warm, dry Final Diagnosis/Problem List - Final Discharge Diagnosis/Problem (1) UTI due to extended-spectrum beta lactamase (ESBL) producing Escherichia coli Current Visit: Yes Status: Acute Code(s): N39.0 - URINARY TRACT INFECTION, SITE NOT SPECIFIED; B96.29 - OTH ESCHERICHIA COLI THE CAUSE OF DISEASES CLASSD ELSWHR; Z16.12 - EXTENDED SPECTRUM BETA LACTAMASE (ESBL) RESISTANCE (2) Abdominal pain Current Visit: Yes Status: Acute Code(s): R10.9 - UNSPECIFIED ABDOMINAL PAIN (3) Left flank pain Current Visit: Yes Status: Acute Code(s): R10.9 - UNSPECIFIED ABDOMINAL PAIN (4) Acute on chronic kidney failure Current Visit: Yes Status: Acute Code(s): N17.9 - ACUTE KIDNEY FAILURE, UNSPECIFIED; N18.9 - CHRONIC KIDNEY DISEASE, UNSPECIFIED (5) Carbon dioxide, decreased level Current Visit: Yes Status: Acute Code(s): R79.81 - ABNORMAL BLOOD-GAS LEVEL (6) Chronic pain Current Visit: Yes Status: Chronic Assessment & Plan: (1) UTI due to extended-spectrum beta lactamase (ESBL) producing Escherichia coli Current Visit: Yes Status: Acute Assessment & Plan: - Repeat UA with C&S today - Urine cultures from 01/25 growing ESBL E-coli - reviewed sensitivities - Pt has a repeat hx of ESBL E-coli per old records- Consider referral to Infectious disease at d/c. - Pt does straight cath since age of 5 - Meropenem (with Benadryl and steroid dose prior to antibiotic )- pt reported some itching but tolerable - Plan to arrange Fosfomycin at d/c discharge - follow up blood culture pending - C/w IV Hydration - C/w morphine 2mg iv every 4 hrly prn for pain - CT abd/ pelvis- pending - Compazine for nausea 01/30/24 - UC negative - BC negative Code(s): N39.0 - URINARY TRACT INFECTION, SITE NOT SPECIFIED; B96.29 - OTH ESCHERICHIA COLI THE CAUSE OF DISEASES CLASSD ELSWHR; Z16.12 - EXTENDED S PECTRUM BETA LACTAMASE (ESBL) RESISTANCE (2) Abdominal pain Current Visit: Yes Status: Acute Assessment & Plan: - 2:2 UTI - CT abd pelvis - pending 01/30/24 - improved Code(s): R10.9 - UNSPECIFIED ABDOMINAL PAIN (3) Left flank pain Current Visit: Yes Status: Acute Assessment & Plan: - CT abd pelvis pending - Morphine IV PRN breakthrough pain - Narcan PRN 01/29 - resolved Code(s): R10.9 - UNSPECIFIED ABDOMINAL PAIN (4) Acute on chronic kidney failure Current Visit: Yes Status: Acute Assessment & Plan: - Creat 1.89, baseline 1.25 after reviweing old records - She follows Dr. Heck - nephrology Op - IVF 01/29 - creat 1.13- better than baseline per old records Code(s): N17.9 - ACUTE KIDNEY FAILURE, UNSPECIFIED; N18.9 - CHRONIC KIDNEY DISEASE, UNSPECIFIED (5) Carbon dioxide, decreased level Current Visit: Yes Status: Acute Assessment & Plan: - 2:2 BENJI- cont IVF - oral sodium bicarb BID started Code(s): R79.81 - ABNORMAL BLOOD-GAS LEVEL (6) Chronic pain Current Visit: Yes Status: Chronic Assessment & Plan: - Continue percocet - Follows Dr. Menchaca Op for pain management - Tele Code(s): G89.29 - OTHER CHRONIC PAIN - Discharge Discharge Date: 01/30/24 Disposition: Home, Self-Care Condition: Stable Prescriptions: Continue Losartan Potassium [Cozaar] 12.5 mg PO HS Duloxetine HCl 30 mg [Cymbalta 30 MG Capsule] 60 mg PO DAILY Oxycodone HCl/Acetaminophen [Oxycodone-Acetaminophn 7.5-325] 1 tab PO QID PRN PRN PRN Reason: chronic Amitriptyline HCl 25 mg [Amitriptyline 25 mg Tablet] 25 mg PO HS Magnesium Oxide [Magnesium] 400 mg PO HS Simvastatin 5 mg PO HS Butalbit/Acetamin/Caff/Codeine [Fioricet-Cod 66-734-53-30 Cap] 1 each PO BID PRN Instructions: Extended-Spectrum Beta Lactamase Infection Follow up with: KADI PETERSON [Primary Care Provider] -
[2024-01-30 11:55] VITALS: BP 115/61; PULSE 109; TEMP 98.2; O2SAT 95
== END 2024-01-30 12:00 | disposition home or self-care (01) ==
LOC: ED 16:52 → MED SURG 20:07
PROVIDERS: ADMIT Internal Medicine; ATTEND Internal Medicine
DX: N39.0 Urinary tract infection, site not specified (principal); B96.29 Other Escherichia coli [E. coli] as the cause of diseases classified elsewhere; I12.9 Hypertensive chronic kidney disease with stage 1 through stage 4 chronic kidney disease, or unspecified chronic kidney disease; N18.31 Chronic kidney disease, stage 3a; Z16.12 Extended spectrum beta lactamase (ESBL) resistance; R10.9 Unspecified abdominal pain; N17.9 Acute kidney failure, unspecified; R79.81 Abnormal blood-gas level; G89.29 Other chronic pain; M79.7 Fibromyalgia; Z79.899 Other long term (current) drug therapy
CPT/HCPCS: 36000; 36415; 71045; 74176; 76942; 80048; 80053; 81001; 82040; 83036; 83605; 84100; 85025; 85027; 87040; 87086; 96374; 96375; 99284; G0378; J1200; J2270; J2405; J2919; Q3014; A9270-GY

== ENCOUNTER 2024-05-08 20:22 | Emergency (ER) | payer MEDICARE ==
[2024-05-08 20:43] VITALS: TEMP 98.1
--- NOTE | 2024-05-08 20:56 | ERPHSYRPT ---
- History of Present Illness Time Seen by Provider: 05/08/24 20:45 Source: patient Exam Limitations: no limitations Patient Subjective Stated Complaint: L thigh burning and stabbing pain that started 3 days ago, pt states the pain radiates to L hip and all the way down to her left foot. pt states that she has a hx of multiple blood clots and had been on a bloodthinner in the past but her doctor took her off of it. Triage Nursing Assessment: pt ambulatory but limping to bedside, pt alert and oriented x3, skin pwd, pt c/o L thigh burning and stabbing pain x3 days and pain now radiates to L hip and down to L foot, +2 bilateral pedal pulses Physician History: Patient a 38-year-old female presents to emergency department for evaluation of possible blood clot to her left lower extremity. Patient describing pain in her left thigh that radiates to her lower leg. No associated back pain. No trauma no fever. Symptoms are mild to moderate in intensity. No specific worsening or improving factors. Patient has no other systemic manifestations. Patient's neurovascular status is normal. Patient voices no other complaints or concerns at this time. Portions of this note were created with voice recognition technology. There may be grammatical, spelling, punctuation or sound alike errors Timing/Duration: today Severity: moderate Modifying Factors: Improves With: nothing Associated Symptoms: denies symptoms Allergies/Adverse Reactions: Cephalosporins Allergy (Verified 05/08/24 20:31) ketorolac [From Toradol] Allergy (Verified 05/08/24 21:29) Itching latex Allergy (Verified 05/08/24 20:31) metoclopramide [From Reglan] Allergy (Verified 05/08/24 20:31) nitrofurantoin Allergy (Verified 05/08/24 20:31) ondansetron [From Zofran] Allergy (Verified 05/08/24 20:31) Penicillins Allergy (Verified 05/08/24 20:31) Sulfa (Sulfonamide Antibiotics) Allergy (Verified 05/08/24 20:31) Tetracyclines Allergy (Verified 05/08/24 20:31) Home Medications: Duloxetine HCl 30 mg [Cymbalta 30 MG Capsule] 60 mg PO DAILY 01/15/23 [History] Oxycodone HCl/Acetaminophen [Oxycodone-Acetaminophn 7.5-325] 1 tab PO QID PRN PRN 01/15/23 [History] Amitriptyline HCl 25 mg [Amitriptyline 25 mg Tablet] 25 mg PO HS 01/28/24 [History] Butalbit/Acetamin/Caff/Codeine [Fioricet-Cod [id number] Cap] 1 each PO BID PRN 01/28/24 [History] Magnesium Oxide [Magnesium] 400 mg PO HS 01/28/24 [History] Simvastatin 5 mg PO HS 01/28/24 [History] Hx Tetanus, Diphtheria Vaccination/Date Given: Yes Hx Influenza Vaccination/Date Given: Yes Hx Pneumococcal Vaccination/Date Given: No Travel Risk - International Travel Have you traveled outside of the country in past 3 weeks: No - Emerging Infectious Disease Are you exhibiting symptoms associated with any current EIDs: No - Review of Systems Constitutional: No Symptoms, No Fever, No Chills Eyes: No Symptoms Ears, Nose, & Throat: No Symptoms Respiratory: No Symptoms, No Cough, No Dyspnea Cardiac: No Symptoms, No Chest Pain, No Edema, No Syncope Abdominal/Gastrointestinal: No Symptoms, No Abdominal Pain, No Nausea, No Vomiting, No Diarrhea Genitourinary Symptoms: No Symptoms, No Dysuria Musculoskeletal: No Symptoms, No Back Pain, No Neck Pain Skin: No Symptoms, No Rash Neurological: No Symptoms, No Dizziness, No Focal Weakness, No Sensory Changes Psychological: No Symptoms Endocrine: No Symptoms Hematologic/Lymphatic: No Symptoms Immunological/Allergic: No Symptoms All Other Systems: Reviewed and Negative - Past Medical History Pertinent Past Medical History: Yes Neurological History: Migraines ENT History: No Pertinent History Cardiac History: High Cholesterol Respiratory History: No Pertinent History Endocrine Medical History: No Pertinent History Musculoskeletal History: Fractures GI Medical History: Other History: Renal Disease, Other Psycho-Social History: Depression Female Reproductive Disorders: Other Other Medical History: PTSD, urinary retention (patient has been straight cathing herself since the age of 5), 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), COVID, History of 7 small bowel obstructions with 3 requiring surgical intervention - Past Surgical History Past Surgical History: Yes Neuro Surgical History: No Pertinent History Cardiac: No Pertinent History Respiratory: No Pertinent History Gastrointestinal: Bowel Surgery Genitourinary: Kidney Surgery, Other Musculoskeletal: Orthopedic Surgery Other Surgical History: History of 7 small bowel obstructions with 3 requiring surgical intervention, bladder augmentation at age 8, right kidney removed at age 6, urinary retention since age 5, Right nephrectomy, renal stents,, left elbow shattered w/ pins and rods placed - Female History Hx Last Menstrual Period: IUD Hx Now: No - Social History Smoking Status: Former smoker Exposure to second hand smoke: No Drug Use: none Patient Lives Alone: No - Social Determinants of Health Will the patient participate in the screening: Declined to provide - Nursing Vital Signs Nursing Vital Signs: Initial Vital Signs Pulse Rate 86 05/08/24 20:31 Respiratory Rate 17 05/08/24 20:31 Blood Pressure 134/94 05/08/24 20:31 O2 Sat by Pulse Oximetry 94 L 05/08/24 20:31 Pain Scale Pain Intensity 6 - Physical Exam General Appearance: no apparent distress, alert Eye Exam: PERRL/EOMI, eyes nml inspection Ears, Nose, Throat Exam: normal ENT inspection, TMs normal, pharynx normal, moist mucous membranes Neck Exam: normal inspection, non-tender, supple, full range of motion Respiratory Exam: normal breath sounds, lungs clear, airway intact, No respiratory distress Cardiovascular Exam: regular rate/rhythm, normal heart sounds, normal peripheral pulses Gastrointestinal/Abdomen Exam: soft, normal bowel sounds, No tenderness, No mass Back Exam: normal inspection, normal range of motion, No CVA tenderness, No vertebral tenderness Extremity Exam: normal inspection, normal range of motion, pelvis stable, other (Bilateral lower extremities are neurovascular tact distally compartments are soft cap refill less than 2 seconds. Overlying soft tissue intact no signs of trauma no cellulitis no open or draining lesions no induration.) Neurologic Exam: alert, oriented x 3, cooperative, normal mood/affect, sensation nml, other (Bilateral lower extremity PT DP pulses palpable.), No motor deficits Skin Exam: normal color, warm, dry, No rash Lymphatic Exam: No adenopathy SpO2 Interpretation: normal SpO2: 96 O2 Delivery: Room Air - Course Nursing assessment & vital signs reviewed: Yes - Radiology Ultrasound Exam Venous Lower Extremity Ultrasound: tele radiology report (No left lower extremity DVT.) Ordered Tests: Active Orders 24 hr Category Date Time Status VENOUS UNILAT/LIMITED EXTREMIT [US] Stat Exams 05/08/24 20:53 Taken Medication Summary Discontinued Medications Generic Name Dose Route Start Last Admin Trade Name Kristin PRN Reason Stop Dose Admin Diphenhydramine HCl 25 mg 05/08/24 21:27 05/08/24 21:28 Diphenhydramine Hcl 25 Mg Capsule PO 05/08/24 21:28 25 mg STAT ONE Administration Diphenhydramine HCl Confirm 05/08/24 21:27 Diphenhydramine Hcl 25 Mg Capsule Administered 05/08/24 21:28 Dose 25 mg .ROUTE .STK-MED ONE Ketorolac Tromethamine 30 mg 05/08/24 20:54 05/08/24 20:59 Ketorolac Tromethamine 30 Mg/Ml Inj IM 05/08/24 20:55 30 mg STAT ONE Administration Ketorolac Tromethamine Confirm 05/08/24 20:58 Ketorolac Tromethamine 30 Mg/Ml Inj Administered 05/08/24 20:59 Dose 30 mg .ROUTE .STK-MED ONE - Progress Progress: improved Progress Note: 38-year-old female presents to our ED with left leg pain. Patient concern for DVT. Ultrasound negative for DVT. Physical exam otherwise unremarkable. The involved extremities neurovascular tact distally compartments are soft cap refi ll less than 2 seconds. Overlying soft tissue intact. Patient received Toradol for pain control. Patient states Toradol made her itch. Patient received a dose of Benadryl. Symptoms resolved. We updated our allergy profile to reflect allergy to Toradol. Patient advised to follow-up with primary care doctor. At this point we are unsure of what is causing her pain. No trauma within normal physical exam. Patient has no back pain. She may benefit from a further workup possible MRI. This was explained to our patient. She agrees to follow-up with her primary care doctor within 48 hours for reevaluation. Portions of this note were created with voice recognition technology. There may be grammatical, spelling, punctuation or sound alike errors Complexity problem addressed is moderate acute complicated. No critical care time. Complex of data reviewed and analyzed is moderate. Test ordered test reviewed results analyzed and correlated clinically with history and physical exam. Risk of complication and or risk of morbidity/mortality patient management is low. Vital stable. Time spent to discharge patient approximately 15 minutes. Plan of care established for shared decision making. No social determinants of health present to impede follow-up. Portions of this note were created with voice recognition technology. There may be grammatical, spelling, punctuation or sound alike errors 05/08/24 22:41 Counseled pt/family regarding: diagnosis, need for follow-up, rad results - Departure Departure Disposition: Home Clinical Impression: Leg pain Condition: Stable Critical Care Time: No Referrals: KADI PETERSON [Primary Care Provider] - Follow up/PCP as directed Additional Instructions: Discharge/Care Plan NIKHIL LOPEZ was seen on 05/08/24 in the Emergency Room. The patient was counseled regarding Diagnosis,Lab results, Imaging studies, need for follow up and when to return to the Emergency Room. Prescriptions given: Discharge Note I have spoken with the patient and/or caregivers. I have explained the patient's condition, diagnosis and treatment plan based on the information available to me at this time. I have answered the patient's and/or caregiver's questions and addressed any concerns. The patient and/or caregivers have as good understanding of the patient's diagnosis, condition and treatment plan as can be expected at this point. The vital signs have been stable. The patient's condition is stable and appropriate for discharge from the emergency department. The patient will pursue further outpatient evaluation with the primary care physician or other designated or consulting physician as outlined in the discharge instructions. The patient and/or caregivers are agreeable to this plan of care and follow-up instructions have been explained in detail. The patient and/or caregivers have received these instruction. The patient/and or caregivers are aware that any significant change in condition or worsening of symptoms should prompt an immediate return to this or the closest emergency department or call 911.
[2024-05-08] MEDS ORDERED: TORAdol 30 mg Injection ONE (20:58)
[2024-05-08] MEDS: TORAdol 30 mg Injection IM ONE (20:59)
[2024-05-08] MEDS ORDERED: BENADRYL 25 MG CAPSULE ONE (21:27)
[2024-05-08] MEDS: BENADRYL 25 MG CAPSULE PO ONE (21:28)
[2024-05-08 22:20] VITALS: BP 138/87; PULSE 72; RESP 17
[2024-05-08 22:44] VITALS: O2SAT 96
--- NOTE | 2024-05-09 08:50 | XRAY ---
Indication: Pain. Two-dimensional sonogram and color Doppler imaging major venous vessels left leg performed. Comparison: None No thrombus seen in the examined deep venous vessels left leg including greater saphenous vein. Veins demonstrate normal compressibility. Venous waveforms are normal with and without augmentation. Targeted ultrasound lateral thigh, region of interest is negative for focal solid/cystic mass or abnormal fluid collection. Impression: Left leg negative for DVT. Comment: Preliminary report was given.
== END 2024-05-08 22:54 | disposition home or self-care (01) ==
LOC: ED 20:22
DX: M79.652 Pain in left thigh (principal); E78.5 Hyperlipidemia, unspecified; Z79.899 Other long term (current) drug therapy
CPT/HCPCS: 93971; 96372; 99283; J1885; A9270-GY

== ENCOUNTER 2024-06-03 22:07 | Emergency (ER) | payer MEDICARE ==
[2024-06-03 22:25] VITALS: RESP 18; O2SAT 98
[2024-06-03 22:29] VITALS: TEMP 98.5
[2024-06-03] MEDS ORDERED: Zofran 4 MG/2 ML VIAL IV ONE (22:36)
[2024-06-03] MEDS ORDERED: Sodium Chloride 0.9% 1000 ML 1,000 ML IV STA (22:36)
[2024-06-03] MEDS ORDERED: MORPHINE SULFATE 2 MG INJ IV ONE (22:36)
[2024-06-03] MEDS ORDERED: Compazine 10 MG/2 ML IV ONE (22:44)
--- NOTE | 2024-06-03 22:47 | ERPHSYRPT ---
- History of Present Illness Time Seen by Provider: 06/03/24 22:40 Historian: patient Exam Limitations: no limitations Patient Subjective Stated Complaint: nausea, vomiting, abdominal pain, L flank pain, chills Triage Nursing Assessment: Pt reports flank pain for 3 days that has progressively getting worse. Today she started having nausea and vomiting. Reports chills, abominal pain, flank pain on L (pt only has L kidney). Pt straight caths at home since she was 5 years old. Rates pain at L flank being the worst at 9 out of 10. Physician History: 38yo f presents via private vehicle for left sided lower abdominal and flank pain that began 3d ago. Pt reports significant hx of recurrent UTI and pyelonephritis, pt has hx of nephrectomy of right kidney as well. Pt reports she has had nausea/vomiting at home that started today, states her pain has significantly worsened as well. Pt is diaphoretic on exam. Pt reports significant dysuria, some hematuria, malodorous urine. Timing/Duration: day(s) (3) Activities at Onset: none Quality: cramping, sharpness Abdominal Pain Onset Location: LLQ, flank Pain Radiation: LLQ, flank Severity of Pain-Max: moderate Severity of Pain-Current: moderate Modifying Factors: Improves With: nothing Associated Symptoms: diaphoresis, fever/chills, nausea, vomiting, No back, No chest pain, No diarrhea, No rash, No shortness of breath Previous symptoms: same symptoms as today Allergies/Adverse Reactions: Cephalosporins Allergy (Verified 05/08/24 20:31) ketorolac [From Toradol] Allergy (Verified 05/08/24 21:29) Itching latex Allergy (Verified 05/08/24 20:31) metoclopramide [From Reglan] Allergy (Verified 05/08/24 20:31) nitrofurantoin Allergy (Verified 05/08/24 20:31) ondansetron [From Zofran] Allergy (Verified 05/08/24 20:31) Penicillins Allergy (Verified 05/08/24 20:31) Sulfa (Sulfonamide Antibiotics) Allergy (Verified 05/08/24 20:31) Tetracyclines Allergy (Verified 05/08/24 20:31) Home Medications: Duloxetine HCl 30 mg [Cymbalta 30 MG Capsule] 60 mg PO DAILY 01/15/23 [History] Oxycodone HCl/Acetaminophen [Oxycodone-Acetaminophn 7.5-325] 1 tab PO QID PRN PRN 01/15/23 [History] Amitriptyline HCl 25 mg [Amitriptyline 25 mg Tablet] 25 mg PO HS 01/28/24 [History] Butalbit/Acetamin/Caff/Codeine [Fioricet-Cod 68-525-10-30 Cap] 1 each PO BID PRN 01/28/24 [History] Magnesium Oxide [Magnesium] 400 mg PO HS 01/28/24 [History] Simvastatin 5 mg PO HS 01/28/24 [History] Hx Tetanus, Diphtheria Vaccination/Date Given: Yes Hx Influenza Vaccination/Date Given: Yes Hx Pneumococcal Vaccination/Date Given: No Travel Risk - International Travel Have you traveled outside of the country in past 3 weeks: No - Emerging Infectious Disease Are you exhibiting symptoms associated with any current EIDs: No - Review of Systems Constitutional: Chills Respiratory: No Symptoms Cardiac: No Symptoms Abdominal/Gastrointestinal: Abdominal Pain, Nausea, Vomiting Genitourinary Symptoms: Dysuria, Frequency, Hematuria, Urgency, No Vaginal Bleeding, No Vaginal Discharge, No Vaginal Itching - Past Medical History Pertinent Past Medical History: Yes Neurological History: Migraines ENT History: No Pertinent History Cardiac History: High Cholesterol Respiratory History: No Pertinent History Endocrine Medical History: No Pertinent History Musculoskeletal History: Fractures GI Medical History: Other History: Renal Disease, Other Psycho-Social History: Depression Female Reproductive Disorders: Other Other Medical History: PTSD, urinary retention (patient has been straight cathing herself since the age of 5), chronic renal disease ([employer]: Dr. Ross), COVID, History of 7 small bowel obstructions with 3 requiring surgical intervention - Past Surgical History Past Surgical History: Yes Neuro Surgical History: No Pertinent History Cardiac: No Pertinent History Respiratory: No Pertinent History Gastrointestinal: Bowel Surgery Genitourinary: Kidney Surgery, Other Musculoskeletal: Orthopedic Surgery Other Surgical History: History of 7 small bowel obstructions with 3 requiring surgical intervention, bladder augmentation at age 8, right kidney removed at age 6, urinary retention since age 5, Right nephrectomy, renal stents,, left elbow shattered w/ pins and rods placed - Female History Hx Last Menstrual Period: IUD Hx Now: No - Social History Smoking Status: Former smoker Exposure to second hand smoke: No Drug Use: none Patient Lives Alone: No - Social Determinants of Health Will the patient participate in the screening: Yes Do you worry about a steady place to live?: No Do you have any problems with any of the following?: No known problems In the past 12 months,have you had to go without utilities?: No Transportation Issues: No Has anyone in your support network made you feel unsafe?: No Have you or anyone in your house had to go without enough: No - Nursing Vital Signs Nursing Vital Signs: Initial Vital Signs Pulse Rate 79 06/03/24 22:08 Respiratory Rate 18 06/03/24 22:08 Blood Pressure 146/98 06/03/24 22:08 O2 Sat by Pulse Oximetry 98 06/03/24 22:08 Pain Scale Pain Intensity 9 - Physical Exam General Appearance: no apparent distress, alert Respiratory Exam: normal breath sounds, lungs clear, airway intact, No chest tenderness, No respiratory distress Cardiovascular Exam: regular rate/rhythm, normal heart sounds, normal peripheral pulses Gastrointestinal/Abdomen Exam: soft, tenderness (LLQ and left flank), guarding, No distention, No rebound Neurologic Exam: alert, oriented x 3, cooperative Skin Exam: normal color, warm, dry SpO2 Interpretation: normal SpO2: 98 O2 Delivery: Room Air Ordered Tests: Active Orders 24 hr Category Date Time Status CBC W DIFF Stat Lab 06/03/24 22:55 Completed CMP Stat Lab 06/03/24 22:55 Completed CULTURE,URINE Stat Lab 06/03/24 22:37 Received UA W/RFX UR CULTURE Stat Lab 06/03/24 22:37 Completed Medication Summary Discontinued Medications Generic Name Dose Route Start Last Admin Trade Name Kristin PRN Reason Stop Dose Admin Droperidol 1.25 mg 06/04/24 00:37 06/04/24 00:57 Droperidol 5 Mg/2 Ml Vial IM 06/04/24 00:38 1.25 mg STAT ONE Administration Droperidol Confirm 06/04/24 00:42 Droperidol 5 Mg/2 Ml Vial Administered 06/04/24 00:43 Dose 5 mg .ROUTE .STK-MED ONE Sodium Chloride 1,000 mls @ 999 mls/hr 06/03/24 22:36 Sodium Chloride 0.9% 1000 Ml IV 06/03/24 23:36 .Q1H1M STA Morphine Sulfate 2 mg 06/03/24 22:36 Morphine Sulfate 2 Mg/Ml Inj IV 06/03/24 22:37 STAT ONE Ondansetron HCl 4 mg 06/03/24 22:36 Ondansetron Hcl 4 Mg/2 Ml Vial IV 06/03/24 22:37 STAT ONE Prochlorperazine Edisylate 10 mg 06/03/24 22:44 Prochlorperazine Edisylate 10 Mg/2 Ml Vial IV 06/03/24 22:45 STAT ONE Prochlorperazine Edisylate 10 mg 06/03/24 22:54 06/03/24 22:59 Prochlorperazine Edisylate 10 Mg/2 Ml Vial IM 06/03/24 22:55 10 mg STAT ONE Administration Prochlorperazine Edisylate Confirm 06/03/24 22:56 Prochlorperazine Edisylate 10 Mg/2 Ml Vial Administered 06/03/24 22:57 Dose 10 mg .ROUTE .[facility] ONE Lab/Rad Data: Laboratory Result Diagrams 06/03/24 22:55 06/03/24 22:55 Laboratory Results 06/03/24 06/03/24 06/03/24 Range/Units 22:55 22:55 22:37 WBC 7.7 (3.98-10.04) x10^3/uL RBC 4.95 (3.93-5.22) x10^6/uL Hgb 13.8 (11.2-15.7) g/dL Hct 43.1 (34.1-44.9) % MCV 87.1 (79.4-94.8) fL MCH 27.9 (25.6-32.2) pg MCHC 32.0 L (32.2-35.5) g/dL RDW 12.8 (11.7-14.4) % Plt Count 185 (182-369) x10^3/uL MPV 11.2 (9.4-12.3) fL Gran % 62.0 (34.0-71.1) % Immature Gran % (Auto) 0.3 (0.001-0.429) % Nucleat RBC Rel Count 0.0 (0.00-0.2) % Eos # (Auto) 0.22 (0.04-0.36) x10^3/uL Immature Gran # (Auto) 0.02 (0.001-0.031) x10^3u/L Absolute Lymphs (auto) 2.03 (1.18-3.74) x10^3/uL Absolute Monos (auto) 0.60 (0.24-0.86) x10^3/uL Absolute Nucleated RBC 0.00 (0.00-0.012) x10^3u/L Lymphocytes % 26.5 (19.3-51.7) % Monocytes % 7.8 (4.7-12.5) % Eosinophils % 2.9 (0.7-5.8) % Basophils % 0.5 (0.1-1.2) % Absolute Granulocytes 4.75 (1.56-6.13) x10^3/uL Basophils # 0.04 (0.01-0.08) x10^3/uL Sodium 136 (135-145) mmol/L Potassium 4.0 (3.5-5.1) mmol/L Chloride 106 (98-107) mmol/L Carbon Dioxide 21 L (22-30) mmol/L Anion Gap 12.6 (5-15) MEQ/L BUN 23 H (7-17) mg/dL Creatinine 1.52 H (0.52-1.04) mg/dL Estimated GFR 44.2 ML/MIN Glucose 104 (74-106) mg/dL Calcium 9.0 (8.4-10.2) mg/dL Total Bilirubin 0.30 (0.2-1.3) mg/dL AST 29 (14-36) U/L ALT 18 (0-35) U/L Alkaline Phosphatase 46 (38-126) U/L Serum Total Protein 7.1 (6.3-8.2) g/dL Albumin 4.0 (3.5-5.0) g/dL Urine Color Yellow (Yellow) Urine Appearance Turbid A (Clear) Urine pH 6.5 (4.6-8.0) Ur Specific Wallace 1.015 (1.005-1.030) Urine Protein 100 A (Negative) Urine Glucose (UA) Negative (Negative) mg/dL Urine Ketones Negative (Negative) Urine Blood Negative (Negative) Urine Nitrite Negative (Negative) Urine Bilirubin Negative (Negative) Urine Urobilinogen 0.2 (0.2) mg/dL Ur Leukocyte Esterase Moderate A (Negative) U Hyaline Cast (Auto) 20-50 (0-2) /LPF Urine Microscopic RBC 0-2 (0-5) /HPF Urine Microscopic WBC 51-100 A (0-5) /HPF Ur Epithelial Cells Few (None Seen) /HPF Urine Bacteria Many A (None Seen) /HPF Urine Culture Reflexed YES (NO) - Progress Progress: improved Progress Note: 06/04/24 00:21 significant difficulty in obtaining peripheral IV access for fluid and IV drug administration given IM compazine dose w/ minimal improvement in nausea UA suggestive of UTI 06/04/24 01:46 pt pain and nausea significantly improved w/ IM dose droperidol pt requesting to have IM dose abx and dc home to orally hydrate likely acute cystitis vs pyelonephritis will give dose of rocephin IM in ED, dc home w/ cefdinir Plan for discharge home w/ PCP follow up this week - Ketan will prescribe course of cefdinir for UTI for 6 days recommend oral hydration w/ pedialyte/gatorade/electrolyte containing fluids can use tylenol/ibuprofen for discomfort, heating pad return to ED if: pain becomes unbearable, develop fevers that do not resolve w/ tylenol, develop shortness of breath/chest pain Counseled pt/family regarding: lab results, diagnosis, need for follow-up Medical Desision Making - Risk of complications Minimal Risk: Minimal risk of morbidity - Departure Departure Disposition: Home Clinical Impression: UTI (urinary tract infection) Qualifiers: Urinary tract infection type: acute cystitis Hematuria presence: without hematuria Qualified Code(s): N30.00 - Acute cystitis without hematuria Condition: Stable Critical Care Time: No Referrals: KADI PETERSON [Primary Care Provider] - Follow up/PCP as directed Additional Instructions: Plan for discharge home w/ PCP follow up this week - Ketan will prescribe course of cefdinir for UTI for 6 days recommend oral hydration w/ pedialyte/gatorade/electrolyte containing fluids can use tylenol/ibuprofen for discomfort, heating pad return to ED if: pain becomes unbearable, develop fevers that do not resolve w/ tylenol, develop shortness of breath/chest pain
[2024-06-03] MEDS ORDERED: Compazine 10 MG/2 ML ONE (22:56)
[2024-06-03 22:57] LABS: Absolute Neutrophil Ct (ANC) 4.75 x10^3/uL (1.56-6.13); BASOPHIL % 0.5 % (0.1-1.2); Basophil (Absolute #) 0.04 x10^3/uL (0.01-0.08); Eosinophil % 2.9 % (0.7-5.8); Eosinophil (Absolute #) 0.22 x10^3/uL (0.04-0.36); Hematocrit 43.1 % (34.1-44.9); Hemoglobin 13.8 g/dL (11.2-15.7); IMMATURE GRAN # 0.02 x10^3u/L (0.001-0.031); IMMATURE GRAN % 0.3 % (0.001-0.429); Lymphocyte (Absolute #) 2.03 x10^3/uL (1.18-3.74); Lymphocytes % 26.5 % (19.3-51.7); Mean Cell Volume 87.1 fL (79.4-94.8); Mean Corpuscular Hemoglobin 27.9 pg (25.6-32.2); Mean Platelet Volume 11.2 fL (9.4-12.3); Monocytes % 7.8 % (4.7-12.5); Platelet Count 185 x10^3/uL (182-369); Red Blood Count 4.95 x10^6/uL (3.93-5.22); Red Cell Distribution Width 12.8 % (11.7-14.4); White Blood Count 7.7 x10^3/uL (3.98-10.04)
[2024-06-03] MEDS: Compazine 10 MG/2 ML IM ONE (22:59)
[2024-06-03 23:04] LABS: Appearance Turbid (Clear); Bacteria Many /HPF (None Seen); Bilirubin Negative (Negative); Blood Negative (Negative); Epithelial Cells Few /HPF (None Seen); Glucose, Urine Negative (Negative); Ketones Negative (Negative); Leukocyte Esterase Moderate (Negative); Nitrite Negative (Negative); Ph 6.5 (4.6-8.0); Protein,Urine Dip 100 (Negative); RBC 0-2 /HPF (0-5); Specific Gravity 1.015 (1.005-1.030); Urobilinogen 0.2 mg/dL (0.2); WBC 51-100 /HPF (0-5)
[2024-06-03 23:05] LABS: ADD URINE CULTURE? YES (NO); Hyaline Casts 20-50 /LPF (0-2)
[2024-06-03 23:11] LABS: ANION GAP 12.6 MEQ/L (5-15); BILIRUBIN,TOTAL 0.3 mg/dL (0.2-1.3); Creatinine 1 1.52 mg/dL (0.52-1.04); EST GLOMERULAR FILTRATION RATE 44.2 ML/MIN; Total Protein 7.1 g/dL (6.3-8.2)
[2024-06-04] MEDS ORDERED: Rocephin 1000 MG INJ ONE (01:52)
[2024-06-04] MEDS ORDERED: XYLOCAINE 1% HCL 20 ML MDV ONE (01:52)
[2024-06-04] MEDS: Rocephin 1000 MG INJ IM ONE (01:56)
[2024-06-04 02:07] VITALS: BP 131/84; PULSE 65
== END 2024-06-04 02:21 | disposition home or self-care (01) ==
LOC: ED 22:07
DX: N30.00 Acute cystitis without hematuria (principal); R10.32 Left lower quadrant pain; R11.2 Nausea with vomiting, unspecified; R30.0 Dysuria; E78.5 Hyperlipidemia, unspecified; N18.9 Chronic kidney disease, unspecified
CPT/HCPCS: 36415; 80053; 81001; 85025; 87077; 87086; 87186; 96372; 99283; J0696

== ENCOUNTER 2024-07-20 16:30 | Emergency (ER) | payer MEDICARE ==
--- NOTE | 2024-07-20 16:32 | ERPHSYRPT ---
- History of Present Illness Time Seen by Provider: 07/20/24 16:32 Historian: patient Exam Limitations: no limitations Physician History: This is a 38-year-old white female patient only has a left kidney and presents by private vehicle and is a patient of Dr. Claudine Peterson and complains of left flank pain. Patient chronically has pain in her flank area on the left side. There are times that it becomes acutely exacerbated. Patient was seen here on 06/03/2024 for somewhat similar issue. Patient states that she self catheterizes. She has a history of hyperlipidemia, migraine headaches, PTSD, chronic renal disease (Dr. Fields), depression and history of recurrent small bowel obstructions. Patient states that she is currently on Levaquin antibiotic. She states that she can take Rocephin and has tolerated that medication in past without any adverse effects. She denies chest pain. She denies shortness of breath. The only pain medicine she cannot take is Toradol. Timing/Duration: worse Abdominal Pain Onset Location: flank Pain Radiation: no radiation Severity of Pain-Max: moderate (Flank) Severity of Pain-Current: moderate Modifying Factors: Improves With: nothing Associated Symptoms: nausea, vomiting, weakness Previous symptoms: same symptoms as today, no recent treatment Allergies/Adverse Reactions: Cephalosporins Allergy (Verified 07/20/24 16:54) ketorolac [From Toradol] Allergy (Verified 07/20/24 16:54) Itching latex Allergy (Verified 07/20/24 16:54) metoclopramide [From Reglan] Allergy (Verified 07/20/24 16:54) nitrofurantoin Allergy (Verified 07/20/24 16:54) ondansetron [From Zofran] Allergy (Verified 07/20/24 16:54) Penicillins Allergy (Verified 07/20/24 16:54) Sulfa (Sulfonamide Antibiotics) Allergy (Verified 07/20/24 16:54) Tetracyclines Allergy (Verified 07/20/24 16:54) Home Medications: Duloxetine HCl 30 mg [Cymbalta 30 MG Capsule] 60 mg PO DAILY 01/15/23 [History] Oxycodone HCl/Acetaminophen [Oxycodone-Acetaminophn 7.5-325] 1 tab PO QID PRN PRN 04/22/23 [History] Amitriptyline HCl 25 mg [Amitriptyline 25 mg Tablet] 25 mg PO HS 01/28/24 [History] Butalbit/Acetamin/Caff/Codeine [Fioricet-Cod 32-882-98-30 Cap] 1 each PO BID PRN 01/28/24 [History] Magnesium Oxide [Magnesium] 400 mg PO HS 01/28/24 [History] Simvastatin 5 mg PO HS 01/28/24 [History] Sodium Bicarbonate 650 mg PO TID 07/20/24 [History] Hx Tetanus, Diphtheria Vaccination/Date Given: Yes Hx Influenza Vaccination/Date Given: Yes Hx Pneumococcal Vaccination/Date Given: No Travel Risk - International Travel Have you traveled outside of the country in past 3 weeks: No - Emerging Infectious Disease Are you exhibiting symptoms associated with any current EIDs: No - Review of Systems Constitutional: No Symptoms Eyes: No Symptoms Ears, Nose, & Throat: No Symptoms Respiratory: No Symptoms Cardiac: No Symptoms Abdominal/Gastrointestinal: No Symptoms Genitourinary Symptoms: Flank Pain (Left flank pain) Musculoskeletal: No Symptoms Skin: No Symptoms Neurological: No Symptoms Psychological: No Symptoms Endocrine: No Symptoms Hematologic/Lymphatic: No Symptoms Immunological/Allergic: No Symptoms All Other Systems: Reviewed and Negative - Past Medical History Pertinent Past Medical History: Yes Neurological History: Migraines ENT History: No Pertinent History Cardiac History: High Cholesterol Respiratory History: No Pertinent History Endocrine Medical History: No Pertinent History Musculoskeletal History: Fractures GI Medical History: Other History: Renal Disease, Other Psycho-Social History: Depression Female Reproductive Disorders: Other Other Medical History: PTSD, urinary retention (patient has been straight cathing 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), COVID, History of 7 small bowel obstructions with 3 requiring surgical intervention - Past Surgical History Past Surgical History: Yes Neuro Surgical History: No Pertinent History Cardiac: No Pertinent History Respiratory: No Pertinent History Gastrointestinal: Bowel Surgery Genitourinary: Kidney Surgery, Other Musculoskeletal: Orthopedic Surgery Other Surgical History: History of 7 small bowel obstructions with 3 requiring surgical intervention, bladder augmentation at age 8, right kidney removed at age 6, urinary retention since age 5, Right nephrectomy, renal stents,, left elbow shattered w/ pins and rods placed - Female History Hx Last Menstrual Period: IUD - Social History Smoking Status: Former smoker Exposure to second hand smoke: No Drug Use: none Patient Lives Alone: No - Social Determinants of Health Will the patient participate in the screening: Yes Do you worry about a steady place to live?: No In the past 12 months,have you had to go without utilities?: No Transportation Issues: No Has anyone in your support network made you feel unsafe?: No Have you or anyone in your house had to go without enough: No - Nursing Vital Signs Nursing Vital Signs: Initial Vital Signs Temperature 98.5 F 07/20/24 16:34 Pulse Rate 99 H 07/20/24 16:34 Blood Pressure 149/94 07/20/24 16:34 O2 Sat by Pulse Oximetry 97 07/20/24 16:34 Pain Scale Pain Intensity 8 - Physical Exam General Appearance: moderate distress, alert, anxiety Eye Exam: PERRL/EOMI, eyes nml inspection Ears, Nose, Throat Exam: normal ENT inspection, moist mucous membranes Neck Exam: normal inspection, non-tender, supple, full range of motion Respiratory Exam: normal breath sounds, lungs clear, airway intact, No chest tenderness, No respiratory distress Cardiovascular Exam: regular rate/rhythm, normal heart sounds, normal peripheral pulses Gastrointestinal/Abdomen Exam: soft, normal bowel sounds, No tenderness Pelvic Exam: not done Rectal Exam: not done Back Exam: normal inspection, normal range of motion, CVA tenderness (Left-sided flank pain), No vertebral tenderness Extremity Exam: normal inspection, normal range of motion, pelvis stable Neurologic Exam: alert, oriented x 3, cooperative, loftsman II-XII nml as tested, nml cerebellar function, nml station & gait, sensation nml Skin Exam: normal color, warm, dry Lymphatic Exam: No adenopathy SpO2 Interpretation: normal O2 Delivery: Room Air - Course Nursing assessment & vital signs reviewed: Yes Ordered Tests: Active Orders 24 hr Category Date Time Status IV Insertion STAT Care 07/20/24 16:52 Active ABDOMEN AND PELVIS W/0 CONTRAS [CT] Stat Exams 07/20/24 16:39 Completed AMYLASE Stat Lab 07/20/24 18:30 Completed BLOOD CULTURE Stat Lab 07/20/24 16:52 Received CBC W DIFF Stat Lab 07/20/24 18:30 Completed CMP Stat Lab 07/20/24 18:30 Completed CULTURE,URINE Stat Lab 07/20/24 16:54 Received LIPASE Stat Lab 07/20/24 18:30 Completed Lactic Acid Stat Lab 07/20/24 18:30 Completed UA W/RFX UR CULTURE Stat Lab 07/20/24 16:54 Completed Medication Summary Discontinued Medications Generic Name Dose Route Start Last Admin Trade Name Freq PRN Reason Stop Dose Admin Hydromorphone HCl 1 mg 07/20/24 16:52 Hydromorphone 1 Mg/1ml Inj IV 07/20/24 16:53 STAT ONE Sodium Chloride 1,000 mls @ 999 mls/hr 07/20/24 16:52 Sodium Chloride 0.9% 1000 Ml IV 07/20/24 17:52 .Q1H1M STA Prochlorperazine Edisylate 5 mg 07/20/24 16:52 Prochlorperazine Edisylate 10 Mg/2 Ml Vial IV 07/20/24 16:53 STAT ONE Lab/Rad Data: Laboratory Result Diagrams 07/20/24 18:30 07/20/24 18:30 Laboratory Results 07/20/24 07/20/24 07/20/24 Range/Units 18:30 18:30 18:30 WBC 6.4 (3.98-10.04) x10^3/uL RBC 4.90 (3.93-5.22) x10^6/uL Hgb 13.6 (11.2-15.7) g/dL Hct 41.7 (34.1-44.9) % MCV 85.1 (79.4-94.8) fL MCH 27.8 (25.6-32.2) pg MCHC 32.6 (32.2-35.5) g/dL RDW 12.5 (11.7-14.4) % Plt Count 169 L (182-369) x10^3/uL MPV 10.9 (9.4-12.3) fL Gran % 62.9 (34.0-71.1) % Immature Gran % (Auto) 0.3 (0.001-0.429) % Nucleat RBC Rel Count 0.0 (0.00-0.2) % Eos # (Auto) 0.10 (0.04-0.36) x10^3/uL Immature Gran # (Auto) 0.02 (0.001-0.031) x10^3u/L Absolute Lymphs (auto) 1.72 (1.18-3.74) x10^3/uL Absolute Monos (auto) 0.50 (0.24-0.86) x10^3/uL Absolute Nucleated RBC 0.00 (0.00-0.012) x10^3u/L Lymphocytes % 26.9 (19.3-51.7) % Monocytes % 7.8 (4.7-12.5) % Eosinophils % 1.6 (0.7-5.8) % Basophils % 0.5 (0.1-1.2) % Absolute Granulocytes 4.03 (1.56-6.13) x10^3/uL Basophils # 0.03 (0.01-0.08) x10^3/uL Sodium 136 (135-145) mmol/L Potassium 4.1 (3.5-5.1) mmol/L Chloride 107 (98-107) mmol/L Carbon Dioxide 19 L (22-30) mmol/L Anion Gap 14.1 (5-15) MEQ/L BUN 21 H (7-17) mg/dL Creatinine 1.77 H (0.52-1.04) mg/dL Estimated GFR 36.8 ML/MIN Glucose 94 (74-106) mg/dL Lactic Acid 0.4 (0.4-2.0) Calcium 9.2 (8.4-10.2) mg/dL Total Bilirubin 0.40 (0.2-1.3) mg/dL AST 25 (14-36) U/L ALT 14 (0-35) U/L Alkaline Phosphatase 49 (38-126) U/L Serum Total Protein 7.1 (6.3-8.2) g/dL Albumin 4.1 (3.5-5.0) g/dL Amylase 106 (30-110) U/L Lipase 83 (23-300) U/L Urine Color (Yellow) Urine Appearance (Clear) Urine pH (4.6-8.0) Ur Specific [place] (1.005-1.030) Urine Protein (Negative) Urine Glucose (UA) (Negative) mg/dL Urine Ketones (Negative) Urine Blood (Negative) Urine Nitrite (Negative) Urine Bilirubin (Negative) Urine Urobilinogen (0.2) mg/dL Ur Leukocyte Esterase (Negative) U Hyaline Cast (Auto) (0-2) /LPF Urine Microscopic RBC (0-5) /HPF Urine Microscopic WBC (0-5) /HPF Ur Epithelial Cells (None Seen) /HPF Urine Bacteria (None Seen) /HPF Urine Culture Reflexed (NO) 07/20/24 Range/Units 16:54 WBC (3.98-10.04) x10^3/uL RBC (3.93-5.22) x10^6/uL Hgb (11.2-15.7) g/dL Hct (34.1-44.9) % MCV (79.4-94.8) fL MCH (25.6-32.2) pg MCHC (32.2-35.5) g/dL RDW (11.7-14.4) % Plt Count (182-369) x10^3/uL MPV (9.4-12.3) fL Gran % (34.0-71.1) % Immature Gran % (Auto) (0.001-0.429) % Nucleat RBC Rel Count (0.00-0.2) % Eos # (Auto) (0.04-0.36) x10^3/uL Immature Gran # (Auto) (0.001-0.031) x10^3u/L Absolute Lymphs (auto) (1.18-3.74) x10^3/uL Absolute Monos (auto) (0.24-0.86) x10^3/uL Absolute Nucleated RBC (0.00-0.012) x10^3u/L Lymphocytes % (19.3-51.7) % Monocytes % (4.7-12.5) % Eosinophils % (0.7-5.8) % Basophils % (0.1-1.2) % Absolute Granulocytes (1.56-6.13) x10^3/uL Basophils # (0.01-0.08) x10^3/uL Sodium (135-145) mmol/L Potassium (3.5-5.1) mmol/L Chloride (98-107) mmol/L Carbon Dioxide (22-30) mmol/L Anion Gap (5-15) MEQ/L BUN (7-17) mg/dL Creatinine (0.52-1.04) mg/dL Estimated GFR ML/MIN Glucose (74-106) mg/dL Lactic Acid (0.4-2.0) Calcium (8.4-10.2) mg/dL Total Bilirubin (0.2-1.3) mg/dL AST (14-36) U/L ALT (0-35) U/L Alkaline Phosphatase (38-126) U/L Serum Total Protein (6.3-8.2) g/dL Albumin (3.5-5.0) g/dL Amylase (30-110) U/L Lipase (23-300) U/L Urine Color Yellow (Yellow) Urine Appearance Turbid A (Clear) Urine pH 6.5 (4.6-8.0) Ur Specific [place] 1.020 (1.005-1.030) Urine Protein 100 A (Negative) Urine Glucose (UA) Negative (Negative) mg/dL Urine Ketones Negative (Negative) Urine Blood Negative (Negative) Urine Nitrite Positive A (Negative) Urine Bilirubin Negative (Negative) Urine Urobilinogen 0.2 (0.2) mg/dL Ur Leukocyte Esterase Moderate A (Negative) U Hyaline Cast (Auto) 3-5 A (0-2) /LPF Urine Microscopic RBC 0-2 (0-5) /HPF Urine Microscopic WBC 51-100 A (0-5) /HPF Ur Epithelial Cells Rare (None Seen) /HPF Urine Bacteria Few A (None Seen) /HPF Urine Culture Reflexed ORDERED SEPARATELY (NO) - Progress Progress: improved, pain not gone completely Progress Note: 07/20/24 16:58 My medical decision making and the assignment of moderate complexity is based on review of the patient's past medical history, review of the patient's medication list, reviewed patient drug allergy list, history present illness and physical findings on examination. The workup in this patient includes placement of an intravenous line, infusion of intravenous fluids, CT scan of the abdomen pelvis without contrast, lactic acid level, amylase, lipase, CBC, CMP and urinalysis. Differential diagnosis includes but is not limited to small bowel obstruction, urinary tract infection, pyelonephritis, ureterolithiasis 07/20/24 19:13 I interpreted the patient's laboratory data results. Based on the laboratory data results, the patient does have a significant urinary tract infection. No other acute, emergent medical issue present. CT scan of the abdomen pelvis without contrast was interpreted by the radiologist and I reviewed the impression. The impression states nonvisualized right kidney. Bowel resection anastomosis present. No free fluid. No free air. Left kidney enlarged, normal shape, no renal calculi and no hydronephrosis. No interval changes when compared to the similar CT scan performed on 01/29/2024 07/20/24 19:14 We will have the patient's stop her Levaquin as she has been taking this medication, our follow-up urinalysis today so she has a significant urinary t ract infection despite the Levaquin use. We will change the patient to third- generation cephalosporin such as Rocephin IV here in the emergency room, then DC the outpatient Levaquin and begin cefdinir. The patient specifically states that she has had no problems taking Rocephin in the past. Counseled pt/family regarding: lab results, diagnosis, need for follow-up, rad results Medical Desision Making - Diagnostic Testing Diagnostic test were ordered, analyzed, and reviewed by me: Yes Radiological Interpretation: Reviewed by me, Teleradiologist Report - Risk of complications The pt has a mod risk of morbidity or mortality based on: Need for prescription drug management - Departure Departure Disposition: Home Clinical Impression: Urinary tract infection Condition: Stable Critical Care Time: No Referrals: KADI PETERSON [Primary Care Provider] - Follow up/PCP as directed Additional Instructions: Drink plenty of clear liquids. Stop your Levaquin. Start your cefdinir tomorrow, 07/20/2024 as prescribed. Continue your other medications as prescribed. Prescriptions: Cefdinir 300 mg PO BID #14 cap
[2024-07-20 16:54] VITALS: TEMP 98.5
[2024-07-20 17:17] LABS: Appearance Turbid (Clear); Bacteria Few /HPF (None Seen); Bilirubin Negative (Negative); Blood Negative (Negative); Epithelial Cells Rare /HPF (None Seen); Glucose, Urine Negative (Negative); Ketones Negative (Negative); Leukocyte Esterase Moderate (Negative); Nitrite Positive (Negative); Ph 6.5 (4.6-8.0); Protein,Urine Dip 100 (Negative); RBC 0-2 /HPF (0-5); Urobilinogen 0.2 mg/dL (0.2); WBC 51-100 /HPF (0-5)
[2024-07-20 18:11] VITALS: RESP 18
--- NOTE | 2024-07-20 18:31 | XRAY ---
CLINICAL HISTORY: pain COMPARISON: 01/29/2024. TECHNIQUE: Non-contrast CT of the abdomen and pelvis was performed, with the following protocol: axial images, and reconstructed coronal and sagittal images. No intravenous contrast was administered. One of the following dose reduction techniques was utilized for this exam: Automated exposure control, adjustment of the mA and/or kV according to patient size, and use of iterative reconstruction. FINDINGS: Abdomen: Liver: Normal in size, shape, and density. No focal lesions, cysts, or masses were identified. Gallbladder and Biliary System: The gallbladder is normal in size and shape. No wall thickening, pericholecystic fluid, or gallstones were identified. Pancreas: Pancreatic head, body, and tail are visualized and appear normal in size and density. No pancreatic masses or calcifications were noted. Spleen: Normal in size, shape, and density. No splenic lesions or masses were identified. Kidneys and Adrenal Glands: non-visualized right kidney. the left kidney is relatively enlarged showing normal shape, and position. Cortical thickness is within normal limits. No renal calculi or hydronephrosis. Adrenal glands are unremarkable. Pelvis: Urinary Bladder: Normal in contour and wall thickness. No intraluminal lesions. Uterus: Retrovflexed. Normal in size and contour. No masses or abnormal thickening. IUCD inside. Ovaries: Not well visualized but no gross abnormalities noted. Vagina: Normal in contour and wall thickness. Cervix: No evidence of mass or abnormal thickening. Peritoneal and Retroperitoneal Structures: No free fluid or abnormal fluid collections were identified within the abdomen or pelvis. No lymphadenopathy was noted. Bowel: Evidence of bowel resection anastomosis. Bones and Soft Tissues: Pelvic bones and soft tissues are unremarkable. No fractures or abnormal masses were identified. Anterior abdominal wall scarring. IMPRESSION: 1. Nonvisualized right kidney. 2. Bowel resection anastomosis. 3. Clinical correlation and further assessment suggested. 4. No significnat interval changes. Electronically Signed by: Jose Antonio Lopez MD. (07/20/2024 18:27:50 EDT)
[2024-07-20 18:34] LABS: Absolute Neutrophil Ct (ANC) 4.03 x10^3/uL (1.56-6.13); BASOPHIL % 0.5 % (0.1-1.2); Basophil (Absolute #) 0.03 x10^3/uL (0.01-0.08); Eosinophil % 1.6 % (0.7-5.8); Hematocrit 41.7 % (34.1-44.9); Hemoglobin 13.6 g/dL (11.2-15.7); IMMATURE GRAN # 0.02 x10^3u/L (0.001-0.031); IMMATURE GRAN % 0.3 % (0.001-0.429); Lymphocyte (Absolute #) 1.72 x10^3/uL (1.18-3.74); Lymphocytes % 26.9 % (19.3-51.7); Mean Cell Volume 85.1 fL (79.4-94.8); Mean Corpuscular Hemoglobin 27.8 pg (25.6-32.2); Mean Corpuscular Hgb Concent. 32.6 g/dL (32.2-35.5); Mean Platelet Volume 10.9 fL (9.4-12.3); Monocytes % 7.8 % (4.7-12.5); Neutrophil % 62.9 % (34.0-71.1); Platelet Count 169 x10^3/uL (182-369); Red Cell Distribution Width 12.5 % (11.7-14.4); White Blood Count 6.4 x10^3/uL (3.98-10.04)
[2024-07-20 18:49] LABS: ALBUMIN 4.1 g/dL (3.5-5.0); ANION GAP 14.1 MEQ/L (5-15); BILIRUBIN,TOTAL 0.4 mg/dL (0.2-1.3); Calcium 9.2 mg/dL (8.4-10.2); Creatinine 1 1.77 mg/dL (0.52-1.04); EST GLOMERULAR FILTRATION RATE 36.8 ML/MIN; Potassium 4.1 mmol/L (3.5-5.1); Total Protein 7.1 g/dL (6.3-8.2)
[2024-07-20] MEDS ORDERED: Xylocaine-Mpf 2% 5 Ml Vial ONE (19:18)
[2024-07-20] MEDS ORDERED: Compazine 10 MG/2 ML ONE (19:22)
[2024-07-20] MEDS ORDERED: Sodium Chloride 0.9% 1000 ML 1,000 ML ONE (19:22)
[2024-07-20] MEDS ORDERED: Hydromorphone 1 mg/ml Injection ONE (19:22)
[2024-07-20] MEDS ORDERED: ROCEPHIN 1 GM / 100 ML NaCl 1 GM/100 ML IVPB IV ONE (19:23)
[2024-07-20] MEDS: Sodium Chloride 0.9% 1000 ML 1,000 ML IV STA (19:30)
[2024-07-20] MEDS: Compazine 10 MG/2 ML IV ONE (19:31)
[2024-07-20] MEDS: Hydromorphone 1 mg/ml Injection IV ONE (19:34)
[2024-07-20] MEDS ORDERED: BENADRYL 50 MG/ML ONE (19:39)
[2024-07-20] MEDS: BENADRYL 50 MG/ML IV ONE (19:41)
[2024-07-20] MEDS: ROCEPHIN 1 GM / 100 ML NaCl 1 GM/100 ML IVPB IV ONE (19:43)
[2024-07-20 20:14] VITALS: BP 114/77; PULSE 87; O2SAT 98
== END 2024-07-20 20:38 | disposition home or self-care (01) ==
LOC: ED 16:30
DX: N39.0 Urinary tract infection, site not specified (principal); R10.9 Unspecified abdominal pain; E78.5 Hyperlipidemia, unspecified; N18.9 Chronic kidney disease, unspecified; Z79.899 Other long term (current) drug therapy
CPT/HCPCS: 36000; 36415; 74176; 80053; 81001; 82150; 83605; 83690; 85025; 87040; 87077; 87086; 87186; 96365; 96374; 96375; 99284; J0696; J1170; J1200

== ENCOUNTER 2024-08-08 12:58 | Day surgery (SDC) | payer MEDICARE ==
[2024-08-08] MEDS ORDERED: Depo-Medrol 40 MG/ML IM ONE (12:59)
[2024-08-08] MEDS ORDERED: Xylocaine-Mpf 2% 5 Ml Vial IJ ONE (12:59)
[2024-08-08 14:35] LABS: HCG SERUM TEST NEGATIVE (NEGATIVE)
[2024-08-08] MEDS ORDERED: DIPRIVAN 200 MG/20 ML IV ONE (15:11)
[2024-08-08] MEDS ORDERED: Xylocaine-Mpf 2% 5 Ml Vial ONE (16:24)
--- NOTE | 2024-08-08 16:31 | XRAY ---
Indication: Bilateral L4-S1 MBB. Intraoperative fluoroscopy provided for 11 seconds. Single digital spot image submitted for interpretation demonstrates posterior needle tips projecting over expected left and right L4-S1 nerve roots. Correlate with intraoperative findings/report.
--- NOTE | 2024-08-08 16:47 | XRAY ---
11 seconds of fluoroscopy was used in surgery for a bilateral L4-S1 MBB.
== END 2024-08-08 15:53 ==
LOC: SDC-PAIN 12:58
PROVIDERS: ATTEND Psychiatry & Neurology Pain Medicine
DX: M47.816 Spondylosis without myelopathy or radiculopathy, lumbar region (principal)
CPT/HCPCS: 36415; 64493; 64494; 72020; 77002; 84703; J2704

== ENCOUNTER 2024-09-12 13:29 | Day surgery (SDC) | payer MEDICARE ==
[2024-09-12] MEDS ORDERED: Depo-Medrol 40 MG/ML IM ONE (13:30)
[2024-09-12] MEDS ORDERED: BUPIVACAINE 0.5% VIAL IJ ONE (13:30)
[2024-09-12 13:50] LABS: HCG URINE TEST NEGATIVE (NEGATIVE)
[2024-09-12] MEDS ORDERED: DIPRIVAN 200 MG/20 ML IV ONE (15:27)
--- NOTE | 2024-09-12 16:52 | XRAY ---
Indication: Bilateral L4-S1 MBB. Intraoperative fluoroscopy provided for 7 seconds. Single digital spot image submitted for interpretation demonstrates posterior needle tips projecting over the expected left and right L4-S1 nerve roots. Correlate with intraoperative findings/report.
--- NOTE | 2024-09-12 17:05 | XRAY ---
7 seconds of fluoroscopy was used in surgery for a bilateral L4-S1 MBB.
== END 2024-09-12 15:59 | disposition home or self-care (01) ==
LOC: SDC-PAIN 13:29
PROVIDERS: ATTEND Psychiatry & Neurology Pain Medicine
DX: M47.816 Spondylosis without myelopathy or radiculopathy, lumbar region (principal)
CPT/HCPCS: 72020; 77002; 81025; J1642; J2704

== ENCOUNTER 2024-11-07 08:59 | Day surgery (SDC) | payer MEDICARE ==
[2024-11-07] MEDS ORDERED: LIDOCAINE HCL 1% AMPUL 5 ML IJ ONE (09:00)
[2024-11-07] MEDS ORDERED: BUPIVACAINE 0.5% VIAL IJ ONE (09:00)
[2024-11-07] MEDS ORDERED: Depo-Medrol 40 MG/ML IM ONE (09:00)
[2024-11-07 09:19] LABS: HCG URINE TEST NEGATIVE (NEGATIVE)
[2024-11-07] MEDS ORDERED: Lactated Ringers 500 ML IV ONE (09:58)
[2024-11-07] MEDS ORDERED: propofoL IV ONE (10:41)
--- NOTE | 2024-11-07 11:56 | XRAY ---
Indication: Left L4-S1 RFA. Intraoperative fluoroscopy provided for 20 seconds. 4 digital spot image submitted for interpretation demonstrates posterior needle tips projecting over expected left L4-S1 nerve roots. Correlate with intraoperative findings/report.
--- NOTE | 2024-11-07 12:03 | XRAY ---
20 seconds of fluoroscopy was used in surgery for a left L4-S1 RFA.
== END 2024-11-07 11:17 | disposition home or self-care (01) ==
LOC: SDC-PAIN 08:59
PROVIDERS: ATTEND Psychiatry & Neurology Pain Medicine
DX: M47.817 Spondylosis without myelopathy or radiculopathy, lumbosacral region (principal)
CPT/HCPCS: 64635; 64636; 72100; 77002; 81025; J2704

== ENCOUNTER 2024-11-08 15:07 | Day surgery (SDC) | payer MEDICARE ==
[2024-11-08] MEDS ORDERED: Depo-Medrol 40 MG/ML IM ONE (15:08)
[2024-11-08] MEDS ORDERED: BUPIVACAINE 0.5% VIAL IJ ONE (15:08)
[2024-11-08] MEDS ORDERED: LIDOCAINE HCL 1% AMPUL 5 ML IJ ONE (15:08)
[2024-11-08] MEDS ORDERED: Lactated Ringers 500 ML IV ONE (15:13)
[2024-11-08] MEDS ORDERED: propofoL IV ONE (16:28)
--- NOTE | 2024-11-08 21:48 | XRAY ---
Indication: Right L4-S1 RFA. Intraoperative fluoroscopy provided for 25 seconds. 3 digital spot images submitted for interpretation demonstrates posterior needle tips projecting over expected right L4-S1 nerve roots. Correlate with intraoperative findings/report.
--- NOTE | 2024-11-08 21:50 | XRAY ---
25 seconds of fluoroscopy were used in surgery for a right L4-S1 RFA.
== END 2024-11-08 17:05 | disposition home or self-care (01) ==
LOC: SDC-PAIN 15:07
PROVIDERS: ATTEND Psychiatry & Neurology Pain Medicine
DX: M47.816 Spondylosis without myelopathy or radiculopathy, lumbar region (principal)
CPT/HCPCS: 64635; 64636; 72100; 77002; J2704

== ENCOUNTER 2025-06-09 14:02 | Observation (INO) | payer BC ==
--- NOTE | 2025-06-09 14:19 | ERPHSYRPT ---
- History of Present Illness Time Seen by Provider: 06/09/25 14:19 Historian: patient Exam Limitations: no limitations Patient Subjective Stated Complaint: . Triage Nursing Assessment: . Physician History: Patient presents with left-sided abdominal pain and flank pain. She has a history of right-sided nephrectomy from pyelonephritis at the age of 6. She has recurrent UTIs due to intermittent self cathing. She has been on levofloxacin for the past 2 weeks without improvement. She reports intermittent fevers and chills. She reports nausea and vomiting. Patient has multiple medication allergies. Timing/Duration: week(s) (2) Activities at Onset: rest Quality: sharpness, stabbing Abdominal Pain Onset Location: flank (left) Pain Radiation: LLQ Severity of Pain-Max: severe Severity of Pain-Current: severe Modifying Factors: Worsens With: palpation, urinating, vomiting Associated Symptoms: back, nausea, vomiting Previous symptoms: same symptoms as today Allergies/Adverse Reactions: Cephalosporins Allergy (Severe, Verified 06/09/25 14:14) Anaphylactic Reaction Penicillins Allergy (Severe, Verified 06/09/25 14:14) Anaphylactic Reaction Sulfa (Sulfonamide Antibiotics) Allergy (Severe, Verified 06/09/25 14:14) Itching hives Tetracyclines Allergy (Severe, Verified 06/09/25 14:14) Itching hives ketorolac [From Toradol] Allergy (Verified 06/09/25 14:14) Itching latex Allergy (Verified 06/09/25 14:14) metoclopramide [From Reglan] Allergy (Verified 06/09/25 14:14) nitrofurantoin Allergy (Verified 06/09/25 14:14) ondansetron [From Zofran] Allergy (Verified 06/09/25 14:14) Home Medications: Duloxetine HCl 30 mg [Cymbalta 30 MG Capsule] 60 mg PO DAILY 01/15/23 [History] Amitriptyline HCl 25 mg [Amitriptyline 25 mg Tablet] 25 mg PO HS 01/28/24 [History] Butalbit/Acetamin/Caff/Codeine [Fioricet-Cod 38-129-05-30 Cap] 1 each PO BID PRN 01/28/24 [History] Magnesium Oxide [Magnesium] 400 mg PO HS 01/28/24 [History] Simvastatin 5 mg PO HS 01/28/24 [History] Sodium Bicarbonate 650 mg PO TID 07/20/24 [History] Hx Tetanus, Diphtheria Vaccination/Date Given: Yes Hx Influenza Vaccination/Date Given: Yes Hx Pneumococcal Vaccination/Date Given: No Travel Risk - International Travel Have you traveled outside of the country in past 3 weeks: No - Emerging Infectious Disease Are you exhibiting symptoms associated with any current EIDs: Yes Symptoms: Abdominal Pain, Vomitting - Review of Systems All Other Systems: Reviewed and Negative - Past Medical History Pertinent Past Medical History: Yes Neurological History: Migraines ENT History: No Pertinent History Cardiac History: High Cholesterol Respiratory History: No Pertinent History Endocrine Medical History: No Pertinent History Musculoskeletal History: Fibromyalgia, Fractures GI Medical History: Other History: Renal Disease, Other Psycho-Social History: Depression Female Reproductive Disorders: Other Other Medical History: PTSD, urinary retention (patient has been straight cathing herself since the age of 5), 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), COVID, History of 7 small bowel obstructions with 3 requiring surgical intervention - Past Surgical History Past Surgical History: Yes Neuro Surgical History: No Pertinent History Cardiac: No Pertinent History Respiratory: No Pertinent History Gastrointestinal: Appendectomy, Bowel Surgery Genitourinary: Kidney Surgery, Other Musculoskeletal: Orthopedic Surgery Female Surgical History: No Pertinent History Other Surgical History: History of 7 small bowel obstructions with 3 requiring surgical intervention, bladder augmentation at age 8, right kidney removed at age 6, urinary retention since age 5, Right nephrectomy, renal stents,, left elbow shattered w/ pins and rods placed, port placement - Female History Hx Last Menstrual Period: IUD Hx Now: No - Social History Smoking Status: Never smoker Exposure to second hand smoke: No Drug Use: none - Social Determinants of Health Will the patient participate in the screening: Yes Do you worry about a steady place to live?: No Do you have any problems with any of the following?: No known problems In the past 12 months,have you had to go without utilities?: No Transportation Issues: No Has anyone in your support network made you feel unsafe?: No Have you or anyone in your house had to go w/o enough food: No - Nursing Vital Signs Nursing Vital Signs: Initial Vital Signs Blood Pressure 139/91 06/09/25 14:09 O2 Sat by Pulse Oximetry 98 06/09/25 14:09 Pain Scale Pain Intensity 7 - Physical Exam General Appearance: mild distress, thin Respiratory Exam: normal breath sounds, lungs clear, airway intact, No respiratory distress Cardiovascular Exam: regular rate/rhythm, normal heart sounds Gastrointestinal/Abdomen Exam: soft, normal bowel sounds, tenderness (llq), guarding, No rebound Back Exam: CVA tenderness (left) Neurologic Exam: alert, oriented x 3, cooperative SpO2 Interpretation: normal SpO2: 99 O2 Delivery: Room Air - Course Nursing assessment & vital signs reviewed: Yes Ordered Tests: Active Orders 24 hr Category Date Time Status IV Insertion STAT Care 06/09/25 14:28 Completed House Regular Diet Diet 06/09/25 Dinner Active ABDOMEN AND PELVIS W/0 CONTRAS [CT] Stat Exams 06/09/25 14:54 Completed BLOOD CULTURE Stat Lab 06/09/25 15:12 Received CBC W DIFF Stat Lab 06/09/25 14:30 Completed CMP Stat Lab 06/09/25 14:30 Completed CULTURE,URINE Stat Lab 06/09/25 14:37 Received HCG QUALITATIVE, URINE Stat Lab 06/09/25 14:36 Completed LIPASE Stat Lab 06/09/25 14:30 Completed Lactic Acid Stat Lab 06/09/25 14:28 Completed UA W/RFX UR CULTURE Stat Lab 06/09/25 14:32 Completed VENOUS BLOOD GAS Stat Lab 06/09/25 15:42 Completed Transfer Order Routine Transfer 06/09/25 Completed Medication Summary Discontinued Medications Generic Name Dose Route Start Last Admin Trade Name Davidq PRN Reason Stop Dose Admin Diphenhydramine HCl 50 mg 06/09/25 16:26 06/09/25 16:28 Diphenhydramine Hcl 50 Mg/Ml Vial IV 06/09/25 16:27 50 mg STAT ONE Administration Diphenhydramine HCl Confirm 06/09/25 16:27 Diphenhydramine Hcl 50 Mg/Ml Vial Administered 06/09/25 16:28 Dose 50 mg .ROUTE .STK-MED ONE Sodium Chloride 1,000 mls @ 999 mls/hr 06/09/25 14:28 06/09/25 16:47 Sodium Chloride 0.9% 1000 Ml IV 06/09/25 15:28 Infused .Q1H1M STA Infusion Tobramycin Sulfate 320 mg/ 108 mls @ 200 mls/hr 06/09/25 14:32 06/09/25 16:15 Sodium Chloride IV 06/09/25 15:04 Not Given STAT ONE Sodium Chloride Confirm 06/09/25 14:35 Sodium Chloride 0.9% 1000 Ml Administered 06/09/25 14:36 Dose 1,000 mls @ ud .ROUTE .STK-MED ONE Meropenem 500 mg/ Sodium 100 mls @ 200 mls/hr 06/09/25 15:02 06/09/25 16:48 Chloride IV 06/09/25 15:31 Infused STAT STA Infusion Sodium Chloride Confirm 06/09/25 16:05 Sodium Chloride 0.9% Administered 06/09/25 16:06 Dose 100 mls @ ud .ROUTE .STK-MED ONE Meropenem Confirm 06/09/25 16:05 Meropenem 500 Mg Vial Administered 06/09/25 16:06 Dose 500 mg IV .STK-MED ONE Morphine Sulfate 2 mg 06/09/25 14:28 06/09/25 14:35 Morphine Sulfate 2 Mg/Ml Inj IV 06/09/25 14:29 2 mg STAT ONE Administration Morphine Sulfate Confirm 06/09/25 14:34 Morphine Sulfate 2 Mg/Ml Inj Administered 06/09/25 14:35 Dose 2 mg .ROUTE .STK-MED ONE Morphine Sulfate 2 mg 06/09/25 15:51 06/09/25 16:12 Morphine Sulfate 2 Mg/Ml Inj IV 06/09/25 15:52 2 mg STAT ONE Administration Morphine Sulfate Confirm 06/09/25 16:12 Morphine Sulfate 2 Mg/Ml Inj Administered 06/09/25 16:13 Dose 2 mg .ROUTE .STK-MED ONE Prochlorperazine Edisylate 10 mg 06/09/25 14:28 06/09/25 14:36 Prochlorperazine Edisylate 10 Mg/2 Ml Vial IV 06/09/25 14:29 10 mg STAT ONE Administration Prochlorperazine Edisylate Confirm 06/09/25 14:34 Prochlorperazine Edisylate 10 Mg/2 Ml Vial Administered 06/09/25 14:35 Dose 10 mg .ROUTE .STK-MED ONE Lab/Rad Data: Laboratory Result Diagrams 06/09/25 14:30 06/09/25 14:30 Laboratory Results 06/09/25 06/09/25 06/09/25 Range/Units 15:42 14:36 14:32 WBC (3.98-10.04) x10^3/uL RBC (3.93-5.22) x10^6/uL Hgb (11.2-15.7) g/dL Hct (34.1-44.9) % MCV (79.4-94.8) fL MCH (25.6-32.2) pg MCHC (32.2-35.5) g/dL RDW (11.7-14.4) % Plt Count (182-369) x10^3/uL MPV (9.4-12.3) fL Gran % (34.0-71.1) % Immature Gran % (Auto) (0.001-0.429) % Nucleat RBC Rel Count (0.00-0.2) % Eos # (Auto) (0.04-0.36) x10^3/uL Immature Gran # (Auto) (0.001-0.031) x10^3u/L Absolute Lymphs (auto) (1.18-3.74) x10^3/uL Absolute Monos (auto) (0.24-0.86) x10^3/uL Absolute Nucleated RBC (0.00-0.012) x10^3u/L Lymphocytes % (19.3-51.7) % Monocytes % (4.7-12.5) % Eosinophils % (0.7-5.8) % Basophils % (0.1-1.2) % Absolute Granulocytes (1.56-6.13) x10^3/uL Basophils # (0.01-0.08) x10^3/uL pO2/FiO2 Ratio 21.0 % VBG pH 7.37 (7.32-7.42) VBG pCO2 at Pat Temp 32 L (42-55) mm/Hg VBG pO2 at Pat Temp 45 H (25-40) mm/Hg VBG HCO3 18.5 L (22-28) meq/L VBG O2 Sat (Luis) 81.1 L (95-100) VBG Base Excess -5.7 L (-2.0-2.0) VBG Hemoglobin 13.8 VBG Carboxyhemoglobin 2.5 (0.0-6.9) % T HGB POC Potassium 4.0 (3.5-5.1) Sodium (135-145) mmol/L Potassium (3.5-5.1) mmol/L Chloride (98-107) mmol/L Carbon Dioxide (22-30) mmol/L Anion Gap (5-15) MEQ/L BUN (7-17) mg/dL Creatinine (0.52-1.04) mg/dL Estimated GFR ML/MIN Glucose (74-106) mg/dL Lactic Acid (0.4-2.0) Calcium (8.4-10.2) mg/dL Total Bilirubin (0.2-1.3) mg/dL AST (14-36) U/L ALT (0-35) U/L Alkaline Phosphatase (38-126) U/L Serum Total Protein (6.3-8.2) g/dL Albumin (3.5-5.0) g/dL Lipase (23-300) U/L Urine Color Yellow (Yellow) Urine Appearance Cloudy A (Clear) Urine pH 7.0 (4.6-8.0) Ur Specific [place] 1.020 (1.005-1.030) Urine Protein 300 A (Negative) Urine Glucose (UA) Negative (Negative) mg/dL Urine Ketones Trace A (Negative) Urine Blood Trace (Negative) Urine Nitrite Negative (Negative) Urine Bilirubin Negative (Negative) Urine Urobilinogen 1.0 A (0.2) mg/dL Ur Leukocyte Esterase Moderate A (Negative) U Hyaline Cast (Auto) 11-20 (0-2) /LPF Urine Microscopic RBC 0-2 (0-5) /HPF Urine Microscopic WBC 51-100 A (0-5) /HPF Ur Epithelial Cells Few (None Seen) /HPF Urine Bacteria Many A (None Seen) /HPF Urine Culture Reflexed ORDERED SEPARATELY (NO) Urine HCG, Qual NEGATIVE (NEGATIVE) 06/09/25 06/09/25 06/09/25 Range/Units 14:30 14:30 14:28 WBC 6.2 (3.98-10.04) x10^3/uL RBC 5.31 H (3.93-5.22) x10^6/uL Hgb 14.7 (11.2-15.7) g/dL Hct 45.4 H (34.1-44.9) % MCV 85.5 (79.4-94.8) fL MCH 27.7 (25.6-32.2) pg MCHC 32.4 (32.2-35.5) g/dL RDW 12.4 (11.7-14.4) % Plt Count 192 (182-369) x10^3/uL MPV 11.7 (9.4-12.3) fL Gran % 74.1 H (34.0-71.1) % Immature Gran % (Auto) 0.3 (0.001-0.429) % Nucleat RBC Rel Count 0.0 (0.00-0.2) % Eos # (Auto) 0.03 L (0.04-0.36) x10^3/uL Immature Gran # (Auto) 0.02 (0.001-0.031) x10^3u/L Absolute Lymphs (auto) 1.14 L (1.18-3.74) x10^3/uL Absolute Monos (auto) 0.38 (0.24-0.86) x10^3/uL Absolute Nucleated RBC 0.00 (0.00-0.012) x10^3u/L Lymphocytes % 18.4 L (19.3-51.7) % Monocytes % 6.1 (4.7-12.5) % Eosinophils % 0.5 L (0.7-5.8) % Basophils % 0.6 (0.1-1.2) % Absolute Granulocytes 4.58 (1.56-6.13) x10^3/uL Basophils # 0.04 (0.01-0.08) x10^3/uL pO2/FiO2 Ratio % VBG pH (7.32-7.42) VBG pCO2 at Pat Temp (42-55) mm/Hg VBG pO2 at Pat Temp (25-40) mm/Hg VBG HCO3 (22-28) meq/L VBG O2 Sat (Luis) (95-100) VBG Base Excess (-2.0-2.0) VBG Hemoglobin VBG Carboxyhemoglobin (0.0-6.9) % T HGB POC Potassium (3.5-5.1) Sodium 139 (135-145) mmol/L Potassium 3.7 (3.5-5.1) mmol/L Chloride 108 H (98-107) mmol/L Carbon Dioxide 15 L* (22-30) mmol/L Anion Gap 19.3 H (5-15) MEQ/L BUN 15 (7-17) mg/dL Creatinine 1.64 H (0.52-1.04) mg/dL Estimated GFR 40.1 ML/MIN Glucose 114 H (74-106) mg/dL Lactic Acid 1.1 (0.4-2.0) Calcium 9.7 (8.4-10.2) mg/dL Total Bilirubin 0.60 (0.2-1.3) mg/dL AST 27 (14-36) U/L ALT 20 (0-35) U/L Alkaline Phosphatase 70 (38-126) U/L Serum Total Protein 8.5 H (6.3-8.2) g/dL Albumin 4.8 (3.5-5.0) g/dL Lipase 197 (23-300) U/L Urine Color (Yellow) Urine Appearance (Clear) Urine pH (4.6-8.0) Ur Specific [place] (1.005-1.030) Urine Protein (Negative) Urine Glucose (UA) (Negative) mg/dL Urine Ketones (Negative) Urine Blood (Negative) Urine Nitrite (Negative) Urine Bilirubin (Negative) Urine Urobilinogen (0.2) mg/dL Ur Leukocyte Esterase (Negative) U Hyaline Cast (Auto) (0-2) /LPF Urine Microscopic RBC (0-5) /HPF Urine Microscopic WBC (0-5) /HPF Ur Epithelial Cells (None Seen) /HPF Urine Bacteria (None Seen) /HPF Urine Culture Reflexed (NO) Urine HCG, Qual (NEGATIVE) - Progress Progress: improved Progress Note: 06/09/25 15:13 Patient presenting with flank pain and fever. Differential included UTI, pyelonephritis, diverticulitis, nephrolithiasis, appendicitis. Also considered but less likely given history and physical exam included constipation, bowel perforation, gastritis, pancreatitis, mesenteric ischemia. Hx of right nephrectomy at age 6. Multiple abx allergies. Has been on Levofloxacin for the past 2 weeks with worsening sxs. Plan: labs, UA/cx, CT A/P, pain control, reassessment, antibiotics, anticipate admission. 06/09/25 18:[address] A/P shows no acute pathology. Discussed admission with Dr. Edmond who accepts at 1642. Counseled pt/family regarding: lab results, diagnosis, need for follow-up, rad results Medical Desision Making - Diagnostic Testing Diagnostic test were ordered, analyzed, and reviewed by me: Yes Radiological Interpretation: Interpreted by me, Reviewed by me, Teleradiologist Report - Risk of complications The pt has a mod risk of morbidity or mortality based on: Need for prescription drug management The pt has a high risk of morbidity or mortality based on: Decision regarding hospitilization or escalation of hosp level of care - Departure Departure Disposition: Observation Clinical Impression: Complicated UTI (urinary tract infection), Failure of outpatient treatment, Left flank pain, History of right nephrectomy, Vomiting Condition: Stable Critical Care Time: No
[2025-06-09] MEDS ORDERED: MORPHINE SULFATE 2 MG INJ ONE ×2 (14:34→16:12)
[2025-06-09] MEDS ORDERED: Compazine 10 MG/2 ML ONE (14:34)
[2025-06-09] MEDS: MORPHINE SULFATE 2 MG INJ IV ONE ×2 (14:35→16:12)
[2025-06-09] MEDS: Compazine 10 MG/2 ML IV ONE (14:36)
[2025-06-09 14:39] LABS: HCG URINE TEST NEGATIVE (NEGATIVE)
[2025-06-09 14:39] LABS: BASOPHIL % 0.6 % (0.1-1.2); Basophil (Absolute #) 0.04 x10^3/uL (0.01-0.08); Eosinophil (Absolute #) 0.03 x10^3/uL (0.04-0.36); Hematocrit 45.4 % (34.1-44.9); Hemoglobin 14.7 g/dL (11.2-15.7); IMMATURE GRAN # 0.02 x10^3u/L (0.001-0.031); IMMATURE GRAN % 0.3 % (0.001-0.429); Lymphocyte (Absolute #) 1.14 x10^3/uL (1.18-3.74); Mean Corpuscular Hemoglobin 27.7 pg (25.6-32.2); Mean Corpuscular Hgb Concent. 32.4 g/dL (32.2-35.5); Monocyte (Absolute #) 0.38 x10^3/uL (0.24-0.86); NUCLEATED RBC # 0.00 x10^3u/L (0.00-0.012); NUCLEATED RBC % 0.0 % (0.00-0.2); Platelet Count 192 x10^3/uL (182-369); Red Blood Count 5.31 x10^6/uL (3.93-5.22); White Blood Count 6.2 x10^3/uL (3.98-10.04)
[2025-06-09 14:45] LABS: Glucose, Urine Negative (Negative); Protein,Urine Dip 300 (Negative); RBC 0-2 /HPF (0-5); WBC 51-100 /HPF (0-5)
[2025-06-09 14:52] LABS: Calcium 9.7 mg/dL (8.4-10.2); Creatinine 1 1.64 mg/dL (0.52-1.04); EST GLOMERULAR FILTRATION RATE 40.1 ML/MIN; Glucose 114.0 mg/dL (74-106); Potassium 3.7 mmol/L (3.5-5.1); SGOT/AST 27.0 U/L (14-36); SGPT/ALT 20.0 U/L (0-35); Total Protein 8.5 g/dL (6.3-8.2)
[2025-06-09 14:59] LABS: Carbon Dioxide 15.0 mmol/L (22-30)
[2025-06-09 15:45] LABS: VBG BASE EXCESS -5.7 (-2.0-2.0); VBG CARBOXYHEMOGLOBIN 2.5 % T HGB (0.0-6.9); VBG FIO2 21.0 %; VBG HCO3- 18.5 meq/L (22-28); VBG HEMOGLOBIN 13.8; VBG O2 SATURATION 81.1 (95-100); VBG PCO2 32.0 mm/Hg (42-55); VBG PO2 45.0 mm/Hg (25-40); VBG POTASSIUM 4.0 (3.5-5.1)
[2025-06-09] MEDS ORDERED: MERREM IV ONE (16:05)
[2025-06-09] MEDS: MERREM IV STA (16:07)
[2025-06-09] MEDS: SODIUM CHLORIDE 0.9% IV STA (16:07)
[2025-06-09] MEDS: SODIUM CHLORIDE 0.9% IV ONE (16:15)
[2025-06-09] MEDS: NEBCIN IV ONE (16:15)
--- NOTE | 2025-06-09 16:21 | XRAY ---
CLINICAL HISTORY: abd pain COMPARISON: Prior CT examinations dated 03/28/2025 and 07/20/2024. TECHNIQUE: Non-contrast CT of the abdomen and pelvis was performed, with the following protocol: axial images, and reconstructed coronal and sagittal images. No intravenous contrast was administered. One of the following dose reduction techniques was utilized for this exam: Automated exposure control, adjustment of the mA and/or kV according to patient size, and use of iterative reconstruction. FINDINGS: Abdomen: Liver: Normal in size, shape, and density. No focal lesions, cysts, or masses were identified. Gallbladder and Biliary System: The gallbladder is normal in size and shape. No wall thickening, pericholecystic fluid, or gallstones were identified. Pancreas: Pancreatic head, body, and tail are visualized and appear normal in size and density. No pancreatic masses or calcifications were noted. Spleen: Normal in size, shape, and density. No splenic lesions or masses were identified. Kidneys and Adrenal Glands: Status post right nephrectomy, showing a clear operative bed. Compensatory hypertrophy of the left kidney with lobulated outline, and focal upper polar areas of cortical scarring. Newly seen, a few tiny left lower and upper cortical/ calyceal dense stones measuring 0.5 -1 mm. Prominent left pelvicalyceal system, stable. The proximal left ureter appears prominent with no obstructing calculus seen throughout the left ureter. Adrenal glands are unremarkable. Appendix: Not visualized. Pelvis: Urinary Bladder: Status post vesical augmentation, showing irregular outline with normal wall thickness. Minimal intraluminal air densities. No intraluminal lesions. Uterus: retroverted with an IUCD is noted in place. Normal in size and contour. No masses or abnormal thickening. Ovaries: A right ovarian well-defined, clear cyst is seen measuring 38x28 mm, which appears in contact to the bladder wall. No other gross abnormalities noted. Vagina: Normal in contour and wall thickness. Cervix: No evidence of mass or abnormal thickening. Peritoneal and Retroperitoneal Structures: No free fluid or abnormal fluid collections were identified within the abdomen or pelvis. No lymphadenopathy was noted. Bowel: Surgical clips with anastomoses are visible in the visualized terminal ileal loops, likely due to a prior intervention. Resolution of the prior noted prominent small and large bowel loops with fluid levels. The visualized bowel loops are normal in caliber and appearance. No evidence of bowel obstruction or wall thickening. Bones and Soft Tissues: A tiny sclerotic focus is seen in the L3 vertebral body. stable, likley benign. Pelvic bones and soft tissues are unremarkable. No fractures or abnormal masses were identified. IMPRESSION: 1. Resolution of the previously noted prominent small and large bowel loops with fluid levels. 2. Newly seen, few tiny left lower and upper calyceal dense stones measuring 0.5 -1 mm. 3. Prominent left pelvicalyceal system. The proximal left ureter appears prominent with no obstructing calculus seen throughout the left ureter. stable. 4. Compensatory hypertrophy of the left kidney with lobulated outline, and focal upper polar areas of cortical scarring. Unchanged 5. Status post vesical augmentation, showing irregular outline. 6. A right ovarian clear cyst in contact to the bladder wall (less likely to represent a bladder diverticulum). Enlarged since the prior. Further ultrasound assessment is recommended. 7. New vesicle minimal intraluminal air densities could be post-intervention or secondary to an infective process, and need clinical/lab correlation. Electronically Signed by: Dani Fernandes MD. (06/09/2025 16:20:18 EDT)
[2025-06-09] MEDS ORDERED: BENADRYL 50 MG/ML ONE (16:27)
[2025-06-09] MEDS: BENADRYL 50 MG/ML IV ONE (16:28)
--- NOTE | 2025-06-09 18:17 | PCM.HP ---
History of Present Illness - Chief Complaint Chief Complaint: complicated uti Date: 06/09/25 History of Present Illness: is a 39-year-old female with a past medical history significant for right nephrectomy at age 6 due to pyelonephritis, chronic kidney disease, intermittent self-catheterization, recurrent urinary tract infections, migraine, hyperlipidemia, fibromyalgia, PTSD, depression, and multiple prior bowel obstructions presented to the emergency department with severe left-sided abdominal and flank pain. She reports intermittent fevers, chills, nausea, and vomiting. She has recently completed one week of ciprofloxacin followed by one week of levofloxacin without improvement. On arrival, she received morphine for pain but developed shortness of breath requiring Benadryl; she requests to avoid morphine in the future. Her pain regimen has been changed to IV Dilaudid given her inability to tolerate oral intake. IV fluids and IV antibiotics were initiated, with blood cultures 2 and urine culture pending. Antiemetics will also be provided for symptom management. - Review of Systems Constitutional: No Fever, No Chills Eyes: No Symptoms Ears, Nose, & Throat: No Symptoms Respiratory: No Cough, No Short Of Breath Cardiac: No Chest Pain, No Edema, No Syncope Abdominal/Gastrointestinal: Abdominal Pain, Nausea, Vomiting, No Diarrhea Genitourinary Symptoms: No Dysuria Musculoskeletal: No Back Pain, No Neck Pain Skin: No Rash Neurological: No Dizziness, No Focal Weakness, No Sensory Changes Psychological: No Symptoms Endocrine: No Symptoms Hematologic/Lymphatic: No Symptoms Immunological/Allergic: No Symptoms Medications & Allergies Home Medications: Home Medication List Duloxetine HCl 30 mg [Cymbalta 30 MG Capsule] 60 mg PO DAILY 01/15/23 [History Confirmed 06/09/25] Amitriptyline HCl 25 mg [Amitriptyline 25 mg Tablet] 25 mg PO HS 01/28/24 [History Confirmed 06/09/25] Butalbit/Acetamin/Caff/Codeine [Fioricet-Cod [id number] Cap] 1 each PO BID PRN 01/28/24 [History Confirmed 06/09/25] Magnesium Oxide [Magnesium] 400 mg PO HS 01/28/24 [History Confirmed 06/09/25] Simvastatin 5 mg PO HS 01/28/24 [History Confirmed 06/09/25] Sodium Bicarbonate 650 mg PO TID 07/20/24 [History Confirmed 06/09/25] Prochlorperazine Maleate [Compazine] 5 mg PO TIDPRN 7 Days #21 tablet 03/31/25 [Rx Confirmed 06/09/25] Allergies/Adverse Reactions: Allergies Allergy/AdvReac Type Severity Reaction Status Date / Time Cephalosporins Allergy Severe Anaphylactic Verified 06/09/25 14:14 Reaction Penicillins Allergy Severe Anaphylactic Verified 06/09/25 14:14 Reaction Sulfa (Sulfonamide Allergy Severe Itching Verified 06/09/25 14:14 Antibiotics) Tetracyclines Allergy Severe Itching Verified 06/09/25 14:14 ketorolac [From Toradol] Allergy Itching Verified 06/09/25 14:14 latex Allergy Verified 06/09/25 14:14 metoclopramide [From Reglan] Allergy Verified 06/09/25 14:14 nitrofurantoin Allergy Verified 06/09/25 14:14 ondansetron [From Zofran] Allergy Verified 06/09/25 14:14 - Past Medical History Past Medical History: Yes Neurological History: Migraines ENT History: No Pertinent History Cardiac History: High Cholesterol Respiratory History: No Pertinent History Endocrine Medical History: No Pertinent History Musculoskelatal History: Fibromyalgia, Fractures GI Medical History: Other History: Renal Disease, Other Pyscho-Social History: Depression Reproductive Disorders: Other Comment: PTSD, urinary retention (patient has been straight cathing herself since the age of 5), chronic renal disease (Hyster Driver: Dr. Ross), COVID, History of 7 small bowel obstructions with 3 requiring surgical intervention - Female History Hx Last Menstrual Period: IUD Are you now?: No - Past Surgical History Past Surgical History: Yes Neuro Surgical History: No Pertinent History Cardiac History: No Pertinent History Respiratory Surgery: No Pertinent History GI Surgical History: Appendectomy, Bowel Surgery Genitourinary Surgical Hx: Kidney Surgery, Other Musculskeletal Surgical Hx: Orthopedic Surgery Female Surgical History: No Pertinent History Other Surgical History: History of 7 small bowel obstructions with 3 requiring surgical intervention, bladder augmentation at age 8, right kidney removed at age 6, urinary retention since age 5, Right nephrectomy, renal stents,, left elbow shattered w/ pins and rods placed, port placement Significant Family History: no pertinent family hx - Social History Smoking Status: Never smoker How long have you smoked: 15 yrs Exposure to second hand smoke: No Alcohol: Rarely Drug Use: none - Social Determinants of Health Will the patient participate in the screening: Yes Do you worry about a steady place to live?: No Do you have any problems with any of the following?: No known problems In the past 12 months,have you had to go without utilities?: No Have you or anyone in your house had to go without enough: No Transportation Issues: No Has anyone in your support network made you feel unsafe?: No Does the patient want assistance with any of the above?: No Comment: ORDERED IN ERROR? NO SDOH NEEDS NOTED. PATIENT ALSO DENIES ANY CURRENT ABUSE OR UNSAFE RELATIONSHIPS - Physical Exam Vital Signs: Vital Signs - 24 hr Temp Pulse Resp BP BP Pulse Ox 06/09/25 18:07 99 06/09/25 17:37 97.7 F 64 16 122/81 96 06/09/25 17:00 58 L 14 116/67 97 06/09/25 16:30 74 16 130/84 97 06/09/25 16:00 86 18 119/75 99 06/09/25 15:30 81 18 108/70 100 06/09/25 15:12 16 130/87 100 06/09/25 14:30 138/80 99 06/09/25 14:10 99 H 16 139/96 99 06/09/25 14:09 139/91 98 General Appearance: no apparent distress, alert Neurologic Exam: alert, oriented x 3, cooperative, normal mood/affect, nml cerebellar function, nml station & gait, sensation nml, No motor deficits Eye Exam: PERRL/EOMI, eyes nml inspection Ears, Nose, Throat Exam: normal ENT inspection, TMs normal, pharynx normal, moist mucous membranes Neck Exam: normal inspection, non-tender, supple, full range of motion Respiratory Exam: normal breath sounds, lungs clear, No respiratory distress Cardiovascular Exam: regular rate/rhythm, normal heart sounds, normal peripheral pulses Gastrointestinal/Abdomen Exam: soft, normal bowel sounds, tenderness, No mass Back Exam: normal inspection, normal range of motion, No CVA tenderness, No vertebral tenderness Extremity Exam: normal inspection, normal range of motion, pelvis stable Skin Exam: normal color, warm, dry, No rash Lymphatic Exam: No adenopathy Results - Labs Lab/Micro Results: Lab Results-Last 24 Hours 06/09/25 06/09/25 06/09/25 Range/Units 14:28 14:30 14:30 WBC 6.2 (3.98-10.04) x10^3/uL RBC 5.31 H (3.93-5.22) x10^6/uL Hgb 14.7 (11.2-15.7) g/dL Hct 45.4 H (34.1-44.9) % MCV 85.5 (79.4-94.8) fL MCH 27.7 (25.6-32.2) pg MCHC 32.4 (32.2-35.5) g/dL RDW 12.4 (11.7-14.4) % Plt Count 192 (182-369) x10^3/uL MPV 11.7 (9.4-12.3) fL Gran % 74.1 H (34.0-71.1) % Immature Gran % (Auto) 0.3 (0.001-0.429) % Nucleat RBC Rel Count 0.0 (0.00-0.2) % Eos # (Auto) 0.03 L (0.04-0.36) x10^3/uL Immature Gran # (Auto) 0.02 (0.001-0.031) x10^3u/L Absolute Lymphs (auto) 1.14 L (1.18-3.74) x10^3/uL Absolute Monos (auto) 0.38 (0.24-0.86) x10^3/uL Absolute Nucleated RBC 0.00 (0.00-0.012) x10^3u/L Lymphocytes % 18.4 L (19.3-51.7) % Monocytes % 6.1 (4.7-12.5) % Eosinophils % 0.5 L (0.7-5.8) % Basophils % 0.6 (0.1-1.2) % Absolute Granulocytes 4.58 (1.56-6.13) x10^3/uL Basophils # 0.04 (0.01-0.08) x10^3/uL pO2/FiO2 Ratio % VBG pH (7.32-7.42) VBG pCO2 at Pat Temp (42-55) mm/Hg VBG pO2 at Pat Temp (25-40) mm/Hg VBG HCO3 (22-28) meq/L VBG O2 Sat (Luis) (95-100) VBG Base Excess (-2.0-2.0) VBG Hemoglobin VBG Carboxyhemoglobin (0.0-6.9) % T HGB POC Potassium (3.5-5.1) Sodium 139 (135-145) mmol/L Potassium 3.7 (3.5-5.1) mmol/L Chloride 108 H (98-107) mmol/L Carbon Dioxide 15 L* (22-30) mmol/L Anion Gap 19.3 H (5-15) MEQ/L BUN 15 (7-17) mg/dL Creatinine 1.64 H (0.52-1.04) mg/dL Estimated GFR 40.1 ML/MIN Glucose 114 H (74-106) mg/dL Lactic Acid 1.1 (0.4-2.0) Calcium 9.7 (8.4-10.2) mg/dL Total Bilirubin 0.60 (0.2-1.3) mg/dL AST 27 (14-36) U/L ALT 20 (0-35) U/L Alkaline Phosphatase 70 (38-126) U/L Serum Total Protein 8.5 H (6.3-8.2) g/dL Albumin 4.8 (3.5-5.0) g/dL Lipase 197 (23-300) U/L Urine Color (Yellow) Urine Appearance (Clear) Urine pH (4.6-8.0) Ur Specific [place] (1.005-1.030) Urine Protein (Negative) Urine Glucose (UA) (Negative) mg/dL Urine Ketones (Negative) Urine Blood (Negative) Urine Nitrite (Negative) Urine Bilirubin (Negative) Urine Urobilinogen (0.2) mg/dL Ur Leukocyte Esterase (Negative) U Hyaline Cast (Auto) (0-2) /LPF Urine Microscopic RBC (0-5) /HPF Urine Microscopic WBC (0-5) /HPF Ur Epithelial Cells (None Seen) /HPF Urine Bacteria (None Seen) /HPF Urine Culture Reflexed (NO) Urine HCG, Qual (NEGATIVE) 06/09/25 06/09/25 06/09/25 Range/Units 14:32 14:36 15:42 WBC (3.98-10.04) x10^3/uL RBC (3.93-5.22) x10^6/uL Hgb (11.2-15.7) g/dL Hct (34.1-44.9) % MCV (79.4-94.8) fL MCH (25.6-32.2) pg MCHC (32.2-35.5) g/dL RDW (11.7-14.4) % Plt Count (182-369) x10^3/uL MPV (9.4-12.3) fL Gran % (34.0-71.1) % Immature Gran % (Auto) (0.001-0.429) % Nucleat RBC Rel Count (0.00-0.2) % Eos # (Auto) (0.04-0.36) x10^3/uL Immature Gran # (Auto) (0.001-0.031) x10^3u/L Absolute Lymphs (auto) (1.18-3.74) x10^3/uL Absolute Monos (auto) (0.24-0.86) x10^3/uL Absolute Nucleated RBC (0.00-0.012) x10^3u/L Lymphocytes % (19.3-51.7) % Monocytes % (4.7-12.5) % Eosinophils % (0.7-5.8) % Basophils % (0.1-1.2) % Absolute Granulocytes (1.56-6.13) x10^3/uL Basophils # (0.01-0.08) x10^3/uL pO2/FiO2 Ratio 21.0 % VBG pH 7.37 (7.32-7.42) VBG pCO2 at Pat Temp 32 L (42-55) mm/Hg VBG pO2 at Pat Temp 45 H (25-40) mm/Hg VBG HCO3 18.5 L (22-28) meq/L VBG O2 Sat (Luis) 81.1 L (95-100) VBG Base Excess -5.7 L (-2.0-2.0) VBG Hemoglobin 13.8 VBG Carboxyhemoglobin 2.5 (0.0-6.9) % T HGB POC Potassium 4.0 (3.5-5.1) Sodium (135-145) mmol/L Potassium (3.5-5.1) mmol/L Chloride (98-107) mmol/L Carbon Dioxide (22-30) mmol/L Anion Gap (5-15) MEQ/L BUN (7-17) mg/dL Creatinine (0.52-1.04) mg/dL Estimated GFR ML/MIN Glucose (74-106) mg/dL Lactic Acid (0.4-2.0) Calcium (8.4-10.2) mg/dL Total Bilirubin (0.2-1.3) mg/dL AST (14-36) U/L ALT (0-35) U/L Alkaline Phosphatase (38-126) U/L Serum Total Protein (6.3-8.2) g/dL Albumin (3.5-5.0) g/dL Lipase (23-300) U/L Urine Color Yellow (Yellow) Urine Appearance Cloudy A (Clear) Urine pH 7.0 (4.6-8.0) Ur Specific [place] 1.020 (1.005-1.030) Urine Protein 300 A (Negative) Urine Glucose (UA) Negative (Negative) mg/dL Urine Ketones Trace A (Negative) Urine Blood Trace (Negative) Urine Nitrite Negative (Negative) Urine Bilirubin Negative (Negative) Urine Urobilinogen 1.0 A (0.2) mg/dL Ur Leukocyte Esterase Moderate A (Negative) U Hyaline Cast (Auto) 11-20 (0-2) /LPF Urine Microscopic RBC 0-2 (0-5) /HPF Urine Microscopic WBC 51-100 A (0-5) /HPF Ur Epithelial Cells Few (None Seen) /HPF Urine Bacteria Many A (None Seen) /HPF Urine Culture Reflexed ORDERED SEPARATELY (NO) Urine HCG, Qual NEGATIVE (NEGATIVE) - Radiology Impressions Radiology Exams & Impressions: Radiology Procedures Category Date Time Status ABDOMEN AND PELVIS W/0 CONTRAS [CT] Stat Exams 06/09/25 14:54 Completed Assessment/Plan (1) Complicated UTI (urinary tract infection) Current Visit: Yes Status: Acute Assessment & Plan: - CBC, CMP reviewed - UC and BC x2 pending - Reviewed old urine culture results - Started Aztronam 2g IV TID - Abd CT/Pelvis: 1. Resolution of the previously noted prominent small and large bowel loops with fluid levels. 2. Newly seen, few tiny left lower and upper calyceal dense stones measuring 0.5 -1 mm. 3. Prominent left pelvicalyceal system. The proximal left ureter appears prominent with no obstructing calculus seen throughout the left ureter. stable. 4. Compensatory hypertrophy of the left kidney with lobulated outline, and focal upper polar areas of cortical scarring. Unchanged 5. Status post vesical augmentation, showing irregular outline. 6. A right ovarian clear cyst in contact to the bladder wall (less likely to represent a bladder diverticulum). Enlarged since the prior. Further ultrasound assessment is recommended. 7. New vesicle minimal intraluminal air densities could be post-intervention or secondary to an infective process, and need clinical/lab correlation. Code(s): N39.0 - URINARY TRACT INFECTION, SITE NOT SPECIFIED (2) Failure of outpatient treatment Current Visit: Yes Status: Acute Assessment & Plan: - Failed OP Cipro and Levaquin Code(s): Z78.9 - OTHER SPECIFIED HEALTH STATUS (3) Neurogenic urinary bladder disorder Current Visit: Yes Status: Chronic Assessment & Plan: - May self cath - uses 09/08 amharic straight caths- [facility] nursing order in. - Caths Q4-6 hours Code(s): N31.9 - NEUROMUSCULAR DYSFUNCTION OF BLADDER, UNSPECIFIED (4) Vomiting Current Visit: Yes Status: Acute Assessment & Plan: - Compazine PRN - IVF Code(s): R11.10 - VOMITING, UNSPECIFIED (5) History of right nephrectomy Current Visit: Yes Status: Chronic Assessment & Plan: - Noted - adds to complexity - In and out caths d/t neurogenic bladder Code(s): Z90.5 - ACQUIRED ABSENCE OF KIDNEY (6) Acute on chronic kidney failure Current Visit: No Status: Acute Assessment & Plan: - CReat 1.64, BL 0.90 ( normal) - IVF- NS @ 75ml/hr - IVF bolus have in ER - Anion Gap 19.3- dehydrated - Anion Gap 15 trend - CMP reviewed Code(s): N17.9 - ACUTE KIDNEY FAILURE, UNSPECIFIED; N18.9 - CHRONIC KIDNEY DISEASE, UNSPECIFIED (7) Depression Current Visit: Yes Status: Chronic Assessment & Plan: - Continue Cymbalta Code(s): F32.A - DEPRESSION, UNSPECIFIED (8) PTSD (post-traumatic stress disorder) Current Visit: Yes Status: Chronic Assessment & Plan: - Continue home meds Code(s): F43.10 - POST-TRAUMATIC STRESS DISORDER, UNSPECIFIED (9) Migraines Current Visit: Yes Status: Chronic Assessment & Plan: - Continue home meds VTE: Heparin PPI: Protonix Next of KIN: Life partner- Lloyd Gloria D/C plan: 2-3 days Code status: Full Plan of care time: > 45 minutes Code(s): G43.909 - MIGRAINE, UNSP, NOT INTRACTABLE, WITHOUT STATUS MIGRAINOSUS Telemedicine Encounter - Telemedicine Encounter Telemedicine Encounter: "The entirety of this encounter was performed via Telemedicine" This visit was performed using real-time audio and video connection between my location and thepatients locationwith the assistance of a surrogateat the patients location. Written or verbal consent was obtained from the patient/guardian to perform this [facility]. Any patient questions regarding the telemedicine interaction were answered.
[2025-06-09] MEDS ORDERED: CAFF PO SCH (18:30)
[2025-06-09] MEDS ORDERED: CODEINE PO SCH (18:30)
[2025-06-09] MEDS ORDERED: ACETAMIN PO SCH (18:30)
[2025-06-09] MEDS ORDERED: [UNRECOGNIZED DRUG - OTHER] PO SCH (18:30)
[2025-06-09] MEDS ORDERED: BUTALBIT PO SCH (18:30)
[2025-06-09] MEDS: Hydromorphone 1 mg/ml Injection IV PRN (18:38)
[2025-06-09] MEDS ORDERED: MAG-OX 400 ONE (20:59)
[2025-06-09] MEDS ORDERED: Zocor 10MG ONE (20:59)
[2025-06-09] MEDS ORDERED: AZACTAM 1 GM ONE (21:00)
[2025-06-09] MEDS: AMITRIPTYLINE 25 MG TABLET PO SCH (21:09)
[2025-06-09] MEDS: NON-FORMULARY ITEM (Magnesium Oxide [Magnesium] 400 MG Tablet) PO SCH (21:09)
[2025-06-09] MEDS: SODIUM BICARBONATE PO SCH (21:09)
[2025-06-09] MEDS: Compazine 10 MG/2 ML IV PRN (21:10)
[2025-06-09] MEDS: AZACTAM 1 GM*** 2 GM in Sodium Chloride 0.9% 100 ML IV SCH (21:10)
[2025-06-09] MEDS: NON-FORMULARY ITEM (Simvastatin [Simvastatin] 5 MG Tablet) PO SCH (21:10)
[2025-06-09] MEDS: HEPARIN 5000 UNITS/0.5 ML (HIGH RISK MED) SQ SCH (21:10)
[2025-06-10] MEDS: NORCO 5/325 MG PO PRN (04:47)
[2025-06-10] MEDS: Hydromorphone 1 mg/ml Injection IV ONE (04:47)
[2025-06-10 05:06] LABS: Hematocrit 38.2 % (34.1-44.9); Hemoglobin 12.1 g/dL (11.2-15.7); Mean Corpuscular Hemoglobin 27.3 pg (25.6-32.2); Mean Corpuscular Hgb Concent. 31.7 g/dL (32.2-35.5); Platelet Count 166 x10^3/uL (182-369); Red Blood Count 4.44 x10^6/uL (3.93-5.22); White Blood Count 5.6 x10^3/uL (3.98-10.04)
--- NOTE | 2025-06-10 05:13 | PCM.NOTE ---
Date and Time: 06/10/25 0507 Subjective Assessment: Ms. Eastman is a 39-year-old female with a pmhx of hyperlipidemia, fibromyalgia, chronic renal disease, depression, PTSD, migraines, multiple bowel obstructions, bladder augmentation at age 8,recurrent urinary tract infections requiring intermittent self-catheterization, and prior right nephrectomy at age 6 for pyelonephritis, who presented to the emergency department on 06/09/25 with complaints of left-sided abdominal and flank pain. She reported associated intermittent fevers, chills, nausea, and vomiting over the preceding several days. She has recently completed one week of ciprofloxacin followed by one week of levofloxacin without improvement. On arrival, her vital signs were stable. Laboratory studies were notable for a carbon dioxide level of 15 and an anion gap of 19.319.4, consistent with a mild metabolic acidosis, as well as an elevated creatinine of 1.64 compared to her baseline of 0.95, concerning for acute kidney injury on chronic kidney disease. Urinalysis was suspicious for infection with moderate leukocyte esterase, [address] WBCs , and many bacteria. A CT of the abdomen and pelvis performed on admission showed new tiny non- obstructing left renal calculi identified in the upper and lower poles measuring 0.51 mm, with a prominent left renal collecting system and proximal ureter but no obstructing calculus. Findings were consistent with compensatory hypertrophy of the solitary left kidney, which also demonstrated areas of cortical scarring. The bladder showed irregularities related to her prior vesical augmentation with minimal intraluminal air densities, possibly post-instrumentation or infectious in nature. An ovarian clear cyst was again seen abutting the bladder wall; further ultrasound evaluation was recommended. In the emergency department she was treated with IV meropenem and tobramycin given her extensive antibiotic allergy history, along with IV fluids, morphine, and Compazine for pain and nausea.After she received morphine for pain she developed shortness of breath requiring Benadryl; she requests to avoid morphine in the future. Her pain regimen has been changed to IV Dilaudid given her inability to tolerate oral intake. Given her presentation of flank pain, systemic symptoms, urinalysis findings, and CT results in the setting of a solitary kidney and failed outpatient therapy, she was admitted for management of complicated urinary tract infection. Aztreonam initiated. 06/10/25: Met with patient bedside. Endorses continued left flank pain 7/10 on numerical pain scale, nausea/vomiting, and chills. Culture growing gram negative organism. Plan to continue Aztrenam pending final culture and sensitivity. Denies fever,cough, sob, or cp. - Review of Systems Constitutional: Chills, Weakness Eyes: No Symptoms Ears, Nose, & Throat: No Symptoms Respiratory: No Symptoms Cardiac: No Symptoms Abdominal/Gastrointestinal: Nausea, Vomiting Genitourinary Symptoms: Flank Pain (left ) Musculoskeletal: No Symptoms Skin: No Symptoms Neurological: Headache Psychological: No Symptoms Endocrine: No Symptoms Hematologic/Lymphatic: No Symptoms Immunological/Allergic: No Symptoms Objective Exam General Appearance: no apparent distress Neurologic Exam: alert, oriented x 3, cooperative Skin Exam: pale Eye Exam: PERRL Ears, Nose, Throat Exam: normal ENT inspection Neck Exam: normal inspection Respiratory Exam: normal breath sounds, lungs clear Cardiovascular Exam: regular rate/rhythm, normal heart sounds Gastrointestinal/Abdomen Exam: soft, normal bowel sounds, tenderness (TTP left flank) Extremity Exam: normal inspection Back Exam: normal inspection Pelvic Exam: deferred Rectal Exam: deferred Objective Data Vital Signs: Vital Signs - 24 hr Temp Pulse Resp BP BP Pulse Ox 06/10/25 04:27 97.4 F 66 18 99/56 96 06/09/25 23:33 97.8 F 58 L 16 109/68 93 L 06/09/25 19:58 97.7 F 64 122/81 99 06/09/25 18:07 99 06/09/25 17:37 97.7 F 64 16 122/81 96 06/09/25 17:00 58 L 14 116/67 97 06/09/25 16:30 74 16 130/84 97 06/09/25 16:00 86 18 119/75 99 06/09/25 15:30 81 18 108/70 100 06/09/25 15:12 16 130/87 100 06/09/25 14:30 138/80 99 06/09/25 14:10 99 H 16 139/96 99 06/09/25 14:09 139/91 98 Pain Assessment - Last Documented Pain Intensity 8 Pain Scale Used 0-10 Pain Scale Intake and Output: Intake & Output 06/07/25 06/08/25 06/09/25 06/10/25 11:59 11:59 11:59 11:59 Intake Total 1940 Output Total 900 Balance 1040 Weight 70.6 kg Lab Results: Lab Results-Last 24 Hours 06/09/25 06/09/25 06/09/25 Range/Units 14:28 14:30 14:30 WBC 6.2 (3.98-10.04) x10^3/uL RBC 5.31 H (3.93-5.22) x10^6/uL Hgb 14.7 (11.2-15.7) g/dL Hct 45.4 H (34.1-44.9) % MCV 85.5 (79.4-94.8) fL MCH 27.7 (25.6-32.2) pg MCHC 32.4 (32.2-35.5) g/dL RDW 12.4 (11.7-14.4) % Plt Count 192 (182-369) x10^3/uL MPV 11.7 (9.4-12.3) fL Gran % 74.1 H (34.0-71.1) % Immature Gran % (Auto) 0.3 (0.001-0.429) % Nucleat RBC Rel Count 0.0 (0.00-0.2) % Eos # (Auto) 0.03 L (0.04-0.36) x10^3/uL Immature Gran # (Auto) 0.02 (0.001-0.031) x10^3u/L Absolute Lymphs (auto) 1.14 L (1.18-3.74) x10^3/uL Absolute Monos (auto) 0.38 (0.24-0.86) x10^3/uL Absolute Nucleated RBC 0.00 (0.00-0.012) x10^3u/L Lymphocytes % 18.4 L (19.3-51.7) % Monocytes % 6.1 (4.7-12.5) % Eosinophils % 0.5 L (0.7-5.8) % Basophils % 0.6 (0.1-1.2) % Absolute Granulocytes 4.58 (1.56-6.13) x10^3/uL Basophils # 0.04 (0.01-0.08) x10^3/uL pO2/FiO2 Ratio % VBG pH (7.32-7.42) VBG pCO2 at Pat Temp (42-55) mm/Hg VBG pO2 at Pat Temp (25-40) mm/Hg VBG HCO3 (22-28) meq/L VBG O2 Sat (Luis) (95-100) VBG Base Excess (-2.0-2.0) VBG Hemoglobin VBG Carboxyhemoglobin (0.0-6.9) % T HGB POC Potassium (3.5-5.1) Sodium 139 (135-145) mmol/L Potassium 3.7 (3.5-5.1) mmol/L Chloride 108 H (98-107) mmol/L Carbon Dioxide 15 L* (22-30) mmol/L Anion Gap 19.3 H (5-15) MEQ/L BUN 15 (7-17) mg/dL Creatinine 1.64 H (0.52-1.04) mg/dL Estimated GFR 40.1 ML/MIN Glucose 114 H (74-106) mg/dL Lactic Acid 1.1 (0.4-2.0) Calcium 9.7 (8.4-10.2) mg/dL Total Bilirubin 0.60 (0.2-1.3) mg/dL AST 27 (14-36) U/L ALT 20 (0-35) U/L Alkaline Phosphatase 70 (38-126) U/L Serum Total Protein 8.5 H (6.3-8.2) g/dL Albumin 4.8 (3.5-5.0) g/dL Lipase 197 (23-300) U/L Urine Color (Yellow) Urine Appearance (Clear) Urine pH (4.6-8.0) Ur Specific [place] (1.005-1.030) Urine Protein (Negative) Urine Glucose (UA) (Negative) mg/dL Urine Ketones (Negative) Urine Blood (Negative) Urine Nitrite (Negative) Urine Bilirubin (Negative) Urine Urobilinogen (0.2) mg/dL Ur Leukocyte Esterase (Negative) U Hyaline Cast (Auto) (0-2) /LPF Urine Microscopic RBC (0-5) /HPF Urine Microscopic WBC (0-5) /HPF Ur Epithelial Cells (None Seen) /HPF Urine Bacteria (None Seen) /HPF Urine Culture Reflexed (NO) Urine HCG, Qual (NEGATIVE) 06/09/25 06/09/25 06/09/25 Range/Units 14:32 14:36 15:42 WBC (3.98-10.04) x10^3/uL RBC (3.93-5.22) x10^6/uL Hgb (11.2-15.7) g/dL Hct (34.1-44.9) % MCV (79.4-94.8) fL MCH (25.6-32.2) pg MCHC (32.2-35.5) g/dL RDW (11.7-14.4) % Plt Count (182-369) x10^3/uL MPV (9.4-12.3) fL Gran % (34.0-71.1) % Immature Gran % (Auto) (0.001-0.429) % Nucleat RBC Rel Count (0.00-0.2) % Eos # (Auto) (0.04-0.36) x10^3/uL Immature Gran # (Auto) (0.001-0.031) x10^3u/L Absolute Lymphs (auto) (1.18-3.74) x10^3/uL Absolute Monos (auto) (0.24-0.86) x10^3/uL Absolute Nucleated RBC (0.00-0.012) x10^3u/L Lymphocytes % (19.3-51.7) % Monocytes % (4.7-12.5) % Eosinophils % (0.7-5.8) % Basophils % (0.1-1.2) % Absolute Granulocytes (1.56-6.13) x10^3/uL Basophils # (0.01-0.08) x10^3/uL pO2/FiO2 Ratio 21.0 % VBG pH 7.37 (7.32-7.42) VBG pCO2 at Pat Temp 32 L (42-55) mm/Hg VBG pO2 at Pat Temp 45 H (25-40) mm/Hg VBG HCO3 18.5 L (22-28) meq/L VBG O2 Sat (Luis) 81.1 L (95-100) VBG Base Excess -5.7 L (-2.0-2.0) VBG Hemoglobin 13.8 VBG Carboxyhemoglobin 2.5 (0.0-6.9) % T HGB POC Potassium 4.0 (3.5-5.1) Sodium (135-145) mmol/L Potassium (3.5-5.1) mmol/L Chloride (98-107) mmol/L Carbon Dioxide (22-30) mmol/L Anion Gap (5-15) MEQ/L BUN (7-17) mg/dL Creatinine (0.52-1.04) mg/dL Estimated GFR ML/MIN Glucose (74-106) mg/dL Lactic Acid (0.4-2.0) Calcium (8.4-10.2) mg/dL Total Bilirubin (0.2-1.3) mg/dL AST (14-36) U/L ALT (0-35) U/L Alkaline Phosphatase (38-126) U/L Serum Total Protein (6.3-8.2) g/dL Albumin (3.5-5.0) g/dL Lipase (23-300) U/L Urine Color Yellow (Yellow) Urine Appearance Cloudy A (Clear) Urine pH 7.0 (4.6-8.0) Ur Specific [place] 1.020 (1.005-1.030) Urine Protein 300 A (Negative) Urine Glucose (UA) Negative (Negative) mg/dL Urine Ketones Trace A (Negative) Urine Blood Trace (Negative) Urine Nitrite Negative (Negative) Urine Bilirubin Negative (Negative) Urine Urobilinogen 1.0 A (0.2) mg/dL Ur Leukocyte Esterase Moderate A (Negative) U Hyaline Cast (Auto) 11-20 (0-2) /LPF Urine Microscopic RBC 0-2 (0-5) /HPF Urine Microscopic WBC 51-100 A (0-5) /HPF Ur Epithelial Cells Few (None Seen) /HPF Urine Bacteria Many A (None Seen) /HPF Urine Culture Reflexed ORDERED SEPARATELY (NO) Urine HCG, Qual NEGATIVE (NEGATIVE) Radiology Exams: Radiology Procedures Category Date Time Status ABDOMEN AND PELVIS W/0 CONTRAS [CT] Stat Exams 06/09/25 14:54 Completed Medications: Medications Generic Name Dose Route Start Last Admin Trade Name Freq PRN Reason Stop Dose Admin Hydrocodone Bitart/Acetaminophen 1 tab 06/10/25 04:38 06/10/25 04:47 Hydrocodone/Apap 5/325 1 Tab Tablet PO 06/12/25 04:37 1 tab QID PRN PRN Administration PAIN Amitriptyline HCl 25 mg 06/09/25 22:00 06/09/25 21:09 Amitriptyline Hcl 25 Mg Tablet PO 07/09/25 21:59 25 mg HS BENNY Administration Duloxetine HCl 60 mg 06/10/25 10:00 Duloxetine Hcl 30 Mg Cap PO 07/10/25 09:59 DAILY BENNY Heparin Sodium (Beef Lung) 5,000 unit 06/09/25 22:00 06/09/25 21:10 Heparin 5000 Units/0.5 Ml 5,000 Unit/0.5 Ml Syr SQ 07/09/25 21:59 5,000 unit BID BENNY Administration Hydromorphone HCl 1 mg 06/09/25 18:12 06/10/25 02:38 Hydromorphone 1 Mg/1ml Inj IV 06/14/25 18:11 1 mg Q4H PRN PRN Administration PAIN Hydromorphone HCl 1 mg 06/10/25 04:38 06/10/25 04:47 Hydromorphone 1 Mg/1ml Inj IV 06/10/25 04:39 1 mg STAT ONE Administration Sodium Chloride 1,000 mls @ 75 mls/hr 06/09/25 18:45 06/09/25 18:38 Sodium Chloride 0.9% 1000 Ml IV 07/09/25 18:44 75 mls/hr .[id number] BENNY Administration Aztreonam 2 gm/ Sodium 100 mls @ 200 mls/hr 06/09/25 22:00 06/09/25 21:10 Chloride IV 06/12/25 21:59 200 mls/hr Q8HT BENNY Administration Non-Formulary Medication 5 mg 06/09/25 22:00 06/09/25 21:10 Simvastatin [Simvastatin] PO 07/09/25 21:59 5 mg HS BENNY Administration Non-Formulary Medication 400 mg 06/09/25 22:00 06/09/25 21:09 Magnesium Oxide [Magnesium] PO 07/09/25 21:59 400 mg HS BENNY Administration Non-Formulary Medication 1 each 06/09/25 18:30 Butalbit/Acetamin/Caff/Codeine [Fioricet-Cod [id number] Cap] PO 07/09/25 18:29 BID PRN BENNY Prochlorperazine Edisylate 10 mg 06/09/25 18:12 06/09/25 21:10 Prochlorperazine Edisylate 10 Mg/2 Ml Vial IV 07/09/25 18:11 10 mg Q6H PRN PRN Administration NAUSEA/VOMITING Sodium Bicarbonate 650 mg 06/09/25 22:00 06/09/25 21:09 Sodium Bicarbonate 650 Mg Tablet PO 07/09/25 21:59 650 mg TID BENNY Administration Discontinued Medications Generic Name Dose Route Start Last Admin Trade Name Kristin PRN Reason Stop Dose Admin Aztreonam Confirm 06/09/25 21:00 Aztreonam 1 Gm Vial Administered 06/09/25 21:01 Dose 1 gm .ROUTE .STK-MED ONE Diphenhydramine HCl 50 mg 06/09/25 16:26 06/09/25 16:28 Diphenhydramine Hcl 50 Mg/Ml Vial IV 06/09/25 16:27 50 mg STAT ONE Administration Diphenhydramine HCl Confirm 06/09/25 16:27 Diphenhydramine Hcl 50 Mg/Ml Vial Administered 06/09/25 16:28 Dose 50 mg .ROUTE .STK-MED ONE Sodium Chloride 1,000 mls @ 999 mls/hr 06/09/25 14:28 06/09/25 16:47 Sodium Chloride 0.9% 1000 Ml IV 06/09/25 15:28 Infused .Q1H1M STA Infusion Tobramycin Sulfate 320 mg/ 108 mls @ 200 mls/hr 06/09/25 14:32 06/09/25 16:15 Sodium Chloride IV 06/09/25 15:04 Not Given STAT ONE Sodium Chloride Confirm 06/09/25 14:35 Sodium Chloride 0.9% 1000 Ml Administered 06/09/25 14:36 Dose 1,000 mls @ ud .ROUTE .STK-MED ONE Meropenem 500 mg/ Sodium 100 mls @ 200 mls/hr 06/09/25 15:02 06/09/25 16:48 Chloride IV 06/09/25 15:31 Infused STAT STA Infusion Sodium Chloride Confirm 06/09/25 16:05 Sodium Chloride 0.9% Administered 06/09/25 16:06 Dose 100 mls @ ud .ROUTE .STK-MED ONE Magnesium Oxide Confirm 06/09/25 20:59 Magnesium Oxide 400 Mg Tablet Administered 06/09/25 21:00 Dose 400 mg .ROUTE .STK-MED ONE Meropenem Confirm 06/09/25 16:05 Meropenem 500 Mg Vial Administered 06/09/25 16:06 Dose 500 mg IV .STK-MED ONE Morphine Sulfate 2 mg 06/09/25 14:28 06/09/25 14:35 Morphine Sulfate 2 Mg/Ml Inj IV 06/09/25 14:29 2 mg STAT ONE Administration Morphine Sulfate Confirm 06/09/25 14:34 Morphine Sulfate 2 Mg/Ml Inj Administered 06/09/25 14:35 Dose 2 mg .ROUTE .STK-MED ONE Morphine Sulfate 2 mg 06/09/25 15:51 06/09/25 16:12 Morphine Sulfate 2 Mg/Ml Inj IV 06/09/25 15:52 2 mg STAT ONE Administration Morphine Sulfate Confirm 06/09/25 16:12 Morphine Sulfate 2 Mg/Ml Inj Administered 06/09/25 16:13 Dose 2 mg .ROUTE .STK-MED ONE Prochlorperazine Edisylate 10 mg 06/09/25 14:28 06/09/25 14:36 Prochlorperazine Edisylate 10 Mg/2 Ml Vial IV 06/09/25 14:29 10 mg STAT ONE Administration Prochlorperazine Edisylate Confirm 06/09/25 14:34 Prochlorperazine Edisylate 10 Mg/2 Ml Vial Administered 06/09/25 14:35 Dose 10 mg .ROUTE .STK-MED ONE Simvastatin Confirm 06/09/25 20:59 Simvastatin 10 Mg Tablet Administered 06/09/25 21:00 Dose 10 mg .ROUTE .STK-MED ONE Assessment/Plan (1) Complicated UTI (urinary tract infection) Current Visit: Yes Status: Acute Assessment & Plan: -Recurrent infection despite 2 weeks levofloxacin. -UA: pyuria, bacteriuria. -CT: non-obstructing stones, bladder irregularities, possible post- instrumentation air. Allergies limit antibiotic choices. -Started empirically on meropenem and tobramycin in the ED - continued on Aztreonam (due to allergy profile and previous cultures) -Continue IV antibiotics; adjust based on culture data currently growing gram - ID -Maintain strict I/O and monitor for progression to sepsis. -Encourage hydration; continue antiemetics and analgesics as needed. -Self cath continued -CMP/CBC reviewed - WBC WNL -Consider transfer for urology consultation with any worsening of symptoms (fever spike, worsening flank pain, rising creatinine, oliguria, given solitary kidney, vesical augmentation, and recurrent Code(s): N39.0 - URINARY TRACT INFECTION, SITE NOT SPECIFIED (2) Failure of outpatient treatment Current Visit: Yes Status: Acute Assessment & Plan: -Failed OP levaquin and Cipro Code(s): Z78.9 - OTHER SPECIFIED HEALTH STATUS (3) Vomiting Current Visit: Yes Status: Acute Assessment & Plan: - Compazine PRN - IVF Code(s): R11.10 - VOMITING, UNSPECIFIED (4) Neurogenic urinary bladder disorder Current Visit: Yes Status: Chronic Assessment & Plan: - May self cath - uses 09/08 setswana straight caths- [facility] [place]. - Caths Q4-6 hours Code(s): N31.9 - NEUROMUSCULAR DYSFUNCTION OF BLADDER, UNSPECIFIED (5) Acute on chronic kidney failure Current Visit: No Status: Acute Assessment & Plan: -Baseline patient reports baseline is 1.3 - patient at baseline today at 1.32 down from 1.64 -Continue IVF -Likely prerenal + infectious component. -Avoid nephrotoxic agents; dose-adjust all antibiotics. -Monitor CMP daily, strict I/O. Code(s): N17.9 - ACUTE KIDNEY FAILURE, UNSPECIFIED; N18.9 - CHRONIC KIDNEY DISEASE, UNSPECIFIED (6) History of right nephrectomy Current Visit: Yes Status: Chronic Assessment & Plan: - Noted - adds to complexity - Urostomy ;In and out caths Code(s): Z90.5 - ACQUIRED ABSENCE OF KIDNEY (7) PTSD (post-traumatic stress disorder) Current Visit: Yes Status: Acute Assessment & Plan: -Continue home psychiatric regimen. Code(s): F43.10 - POST-TRAUMATIC STRESS DISORDER, UNSPECIFIED (8) Migraines Current Visit: Yes Status: Chronic Assessment & Plan: -continue home meds Code(s): G43.909 - MIGRAINE, UNSP, NOT INTRACTABLE, WITHOUT STATUS MIGRAINOSUS (9) Renal calculus, left Current Visit: Yes Status: Acute Assessment & Plan: -Tiny non-obstructing stones seen on CT. -Monitor; no acute intervention indicated. -Urology f/u outpatient for stone management/prevention. VTE: Heparin Dispo: 2-3 days Code Status: Full Code Plan of care time spent > 30 mins Code(s): N20.0 - CALCULUS OF KIDNEY
[2025-06-10 05:20] LABS: Calcium 8.5 mg/dL (8.4-10.2); Carbon Dioxide 20.0 mmol/L (22-30); Creatinine 1 1.32 mg/dL (0.52-1.04); EST GLOMERULAR FILTRATION RATE 52.0 ML/MIN; Glucose 84.0 mg/dL (74-106); Potassium 3.7 mmol/L (3.5-5.1); Total Protein 6.1 g/dL (6.3-8.2)
[2025-06-10 05:21] LABS: SGOT/AST 22.0 U/L (14-36); SGPT/ALT 16.0 U/L (0-35)
[2025-06-10] MEDS ORDERED: MEDICATION INTERVENTION MC SCH (07:00)
[2025-06-10] MEDS: Cymbalta 30 MG Capsule PO SCH (09:09)
[2025-06-10] MEDS: SODIUM BICARBONATE PO SCH (09:11)
[2025-06-10] MEDS ORDERED: SODIUM BICARBONATE PO SCH (10:00)
[2025-06-10] MEDS: Zocor 10MG PO SCH (20:38)
[2025-06-10] MEDS: MAG-OX 400 PO SCH (20:38)
--- NOTE | 2025-06-11 05:05 | PCM.NOTE ---
Date and Time: 06/11/25 0505 Subjective Assessment: Ms. Eastman is a 39-year-old female with a pmhx of hyperlipidemia, fibromyalgia, chronic renal disease, depression, PTSD, migraines, multiple bowel obstructions, bladder augmentation at age 8,recurrent urinary tract infections requiring intermittent self-catheterization, and prior right nephrectomy at age 6 for pyelonephritis, who presented to the emergency department on 06/09/25 with complaints of left-sided abdominal and flank pain. She reported associated intermittent fevers, chills, nausea, and vomiting over the preceding several days. She has recently completed one week of ciprofloxacin followed by one week of levofloxacin without improvement. On arrival, her vital signs were stable. Laboratory studies were notable for a carbon dioxide level of 15 and an anion gap of 19.319.4, consistent with a mild metabolic acidosis, as well as an elevated creatinine of 1.64 compared to her baseline of 0.95, concerning for acute kidney injury on chronic kidney disease. Urinalysis was suspicious for infection with moderate leukocyte esterase, 83925 WBCs , and many bacteria. A CT of the abdomen and pelvis performed on admission showed new tiny non- obstructing left renal calculi identified in the upper and lower poles measuring 0.51 mm, with a prominent left renal collecting system and proximal ureter but no obstructing calculus. Findings were consistent with compensatory hypertrophy of the solitary left kidney, which also demonstrated areas of cortical scarring. The bladder showed irregularities related to her prior vesical augmentation with minimal intraluminal air densities, possibly post-instrumentation or infectious in nature. An ovarian clear cyst was again seen abutting the bladder wall; further ultrasound evaluation was recommended. In the emergency department she was treated with IV meropenem and tobramycin given her extensive antibiotic allergy history, along with IV fluids, morphine, and Compazine for pain and nausea.After she received morphine for pain she developed shortness of breath requiring Benadryl; she requests to avoid morphine in the future. Her pain regimen has been changed to IV Dilaudid given her inability to tolerate oral intake. Given her presentation of flank pain, systemic symptoms, urinalysis findings, and CT results in the setting of a solitary kidney and failed outpatient therapy, she was admitted for management of complicated urinary tract infection. Ucult with Ecoli Aztreonam initiated and sensitive. 06/10/25: Met with patient bedside. Endorses continued left flank pain 7/10 on numerical pain scale, nausea/vomiting, and chills. Culture growing gram negative organism. Plan to continue Aztrenam pending final culture and sensitivity. Denies fever,cough, sob, or cp. 06/11/25: Patient seen at bedside and reports improvement in left flank pain since last assessment. Urine culture from this admission has grown Escherichia coli with susceptibilities that preclude oral therapy given the patients allergy profile; therefore no safe oral option is available. Plan is discharge tomorrow with outpatient IV ertapenem (Invanz) infusion for 10 days; patient understands and agrees. Patient told the [facility] advisor yesterday that she had thoughts about self- harm; on bedside assessment today she denies active suicidal or homicidal ideation or intent, but described a passive acceptance (if God wants to take her she would be okay with it). Psychiatry consult via [facility] requested for inpatient/transition evaluation, and outpatient mental-health follow-up will be arranged given prior attempts to access services. OPAT/home infusion coordination and weekly laboratory monitoring arranged prior to discharge. Allergies and other relevant meds documented in chart. - Review of Systems Constitutional: No Symptoms Eyes: No Symptoms Ears, Nose, & Throat: No Symptoms Respiratory: No Symptoms Cardiac: No Symptoms Abdominal/Gastrointestinal: No Symptoms Genitourinary Symptoms: Flank Pain (left improved) Musculoskeletal: No Symptoms Skin: No Symptoms Neurological: No Symptoms Psychological: Depression Endocrine: No Symptoms Hematologic/Lymphatic: No Symptoms Immunological/Allergic: No Symptoms Objective Exam General Appearance: no apparent distress Neurologic Exam: alert, oriented x 3, cooperative Skin Exam: normal color Eye Exam: PERRL Ears, Nose, Throat Exam: normal ENT inspection Neck Exam: normal inspection Respiratory Exam: normal breath sounds, lungs clear Cardiovascular Exam: regular rate/rhythm, normal heart sounds Gastrointestinal/Abdomen Exam: soft, normal bowel sounds Extremity Exam: normal inspection Back Exam: normal inspection Pelvic Exam: deferred Rectal Exam: deferred Objective Data Vital Signs: Vital Signs - 24 hr Temp Pulse Resp BP Pulse Ox 06/10/25 23:38 98.0 F 79 16 120/71 93 L 06/10/25 19:31 97.7 F 87 15 129/70 95 06/10/25 16:00 98.5 F 100 H 16 126/71 94 L 06/10/25 11:13 97.7 F 65 17 111/66 95 06/10/25 07:44 97.3 F 68 17 105/69 94 L Pain Assessment - Last Documented Pain Intensity 6 Pain Scale Used 0-10 Pain Scale Intake and Output: Intake & Output 06/08/25 06/09/25 06/10/25 06/11/25 11:59 11:59 11:59 11:59 Intake Total 2180 2717 Output Total 900 Balance 1280 2717 Weight 70.6 kg Lab Results: Lab Results-Last 24 Hours 06/10/25 06/10/25 Range/Units 04:35 04:35 WBC 5.6 (3.98-10.04) x10^3/uL RBC 4.44 (3.93-5.22) x10^6/uL Hgb 12.1 (11.2-15.7) g/dL Hct 38.2 (34.1-44.9) % MCV 86.0 (79.4-94.8) fL MCH 27.3 (25.6-32.2) pg MCHC 31.7 L (32.2-35.5) g/dL RDW 12.9 (11.7-14.4) % Plt Count 166 L (182-369) x10^3/uL MPV 12.2 (9.4-12.3) fL Sodium 138 (135-145) mmol/L Potassium 3.7 (3.5-5.1) mmol/L Chloride 109 H (98-107) mmol/L Carbon Dioxide 20 L (22-30) mmol/L Anion Gap 13.1 (5-15) MEQ/L BUN 14 (7-17) mg/dL Creatinine 1.32 H (0.52-1.04) mg/dL Estimated GFR 52.0 ML/MIN Glucose 84 (74-106) mg/dL Calcium 8.5 (8.4-10.2) mg/dL Total Bilirubin 0.20 (0.2-1.3) mg/dL AST 22 (14-36) U/L ALT 16 (0-35) U/L Alkaline Phosphatase 47 (38-126) U/L Serum Total Protein 6.1 L (6.3-8.2) g/dL Albumin 3.6 (3.5-5.0) g/dL Radiology Exams: Radiology Procedures Category Date Time Status ABDOMEN AND PELVIS W/0 CONTRAS [CT] Stat Exams 06/09/25 14:54 Completed Medications: Medications Generic Name Dose Route Start Last Admin Trade Name Freq PRN Reason Stop Dose Admin Hydrocodone Bitart/Acetaminophen 1 tab 06/10/25 04:38 06/10/25 23:10 Hydrocodone/Apap 5/325 1 Tab Tablet PO 06/12/25 04:37 1 tab QID PRN PRN Administration PAIN Amitriptyline HCl 25 mg 06/09/25 22:00 06/10/25 20:37 Amitriptyline Hcl 25 Mg Tablet PO 07/09/25 21:59 25 mg HS BENNY Administration Duloxetine HCl 60 mg 06/10/25 10:00 06/10/25 09:09 Duloxetine Hcl 30 Mg Cap PO 07/10/25 09:59 60 mg DAILY BENNY Administration Heparin Sodium (Beef Lung) 5,000 unit 06/09/25 22:00 06/10/25 20:39 Heparin 5000 Units/0.5 Ml 5,000 Unit/0.5 Ml Syr SQ 07/09/25 21:59 5,000 unit BID BENNY Administration Hydromorphone HCl 1 mg 06/09/25 18:12 06/11/25 04:36 Hydromorphone 1 Mg/1ml Inj IV 06/14/25 18:11 1 mg Q4H PRN PRN Administration PAIN Sodium Chloride 1,000 mls @ 75 mls/hr 06/09/25 18:45 06/10/25 23:10 Sodium Chloride 0.9% 1000 Ml IV 07/09/25 18:44 75 mls/hr .[id number] BENNY Administration Aztreonam 2 gm/ Sodium 100 mls @ 200 mls/hr 06/09/25 22:00 06/10/25 23:11 Chloride IV 06/12/25 21:59 200 mls/hr Q8HT BENNY Administration Magnesium Oxide 400 mg 06/10/25 22:00 06/10/25 20:38 Magnesium Oxide 400 Mg Tablet PO 07/10/25 21:59 400 mg HS BENNY Administration Miscellaneous Information 1 each 06/10/25 07:00 Medication Intervention 1 Each Each 07/10/25 06:59 .RN TO CHECK BENNY Prochlorperazine Edisylate 10 mg 06/09/25 18:12 06/10/25 23:11 Prochlorperazine Edisylate 10 Mg/2 Ml Vial IV 07/09/25 18:11 10 mg Q6H PRN PRN Administration NAUSEA/VOMITING Simvastatin 5 mg 06/10/25 22:00 06/10/25 20:38 Simvastatin 10 Mg Tablet PO 07/10/25 21:59 5 mg HS BNENY Administration Sodium Bicarbonate 650 mg 06/10/25 10:00 06/10/25 20:38 Sodium Bicarbonate 650 Mg Tablet PO 07/10/25 09:59 650 mg TID BENNY Administration Discontinued Medications Generic Name Dose Route Start Last Admin Trade Name Freq PRN Reason Stop Dose Admin Aztreonam Confirm 06/09/25 21:00 Aztreonam 1 Gm Vial Administered 06/09/25 21:01 Dose 1 gm .ROUTE .STK-MED ONE Diphenhydramine HCl 50 mg 06/09/25 16:26 06/09/25 16:28 Diphenhydramine Hcl 50 Mg/Ml Vial IV 06/09/25 16:27 50 mg STAT ONE Administration Diphenhydramine HCl Confirm 06/09/25 16:27 Diphenhydramine Hcl 50 Mg/Ml Vial Administered 06/09/25 16:28 Dose 50 mg .ROUTE .STK-MED ONE Hydromorphone HCl 1 mg 06/10/25 04:38 06/10/25 04:47 Hydromorphone 1 Mg/1ml Inj IV 06/10/25 04:39 1 mg STAT ONE Administration Sodium Chloride 1,000 mls @ 999 mls/hr 06/09/25 14:28 06/09/25 16:47 Sodium Chloride 0.9% 1000 Ml IV 06/09/25 15:28 Infused .Q1H1M STA Infusion Tobramycin Sulfate 320 mg/ 108 mls @ 200 mls/hr 06/09/25 14:32 06/09/25 16:15 Sodium Chloride IV 06/09/25 15:04 Not Given STAT ONE Sodium Chloride Confirm 06/09/25 14:35 Sodium Chloride 0.9% 1000 Ml Administered 06/09/25 14:36 Dose 1,000 mls @ ud .ROUTE .STK-MED ONE Meropenem 500 mg/ Sodium 100 mls @ 200 mls/hr 06/09/25 15:02 06/09/25 16:48 Chloride IV 06/09/25 15:31 Infused STAT STA Infusion Sodium Chloride Confirm 06/09/25 16:05 Sodium Chloride 0.9% Administered 06/09/25 16:06 Dose 100 mls @ ud .ROUTE .STK-MED ONE Magnesium Oxide Confirm 06/09/25 20:59 Magnesium Oxide 400 Mg Tablet Administered 06/09/25 21:00 Dose 400 mg .ROUTE .STK-MED ONE Meropenem Confirm 06/09/25 16:05 Meropenem 500 Mg Vial Administered 06/09/25 16:06 Dose 500 mg IV .STK-MED ONE Morphine Sulfate 2 mg 06/09/25 14:28 06/09/25 14:35 Morphine Sulfate 2 Mg/Ml Inj IV 06/09/25 14:29 2 mg STAT ONE Administration Morphine Sulfate Confirm 06/09/25 14:34 Morphine Sulfate 2 Mg/Ml Inj Administered 06/09/25 14:35 Dose 2 mg .ROUTE .STK-MED ONE Morphine Sulfate 2 mg 06/09/25 15:51 06/09/25 16:12 Morphine Sulfate 2 Mg/Ml Inj IV 06/09/25 15:52 2 mg STAT ONE Administration Morphine Sulfate Confirm 06/09/25 16:12 Morphine Sulfate 2 Mg/Ml Inj Administered 06/09/25 16:13 Dose 2 mg .ROUTE .STK-MED ONE Non-Formulary Medication 5 mg 06/09/25 22:00 06/09/25 21:10 Simvastatin [Simvastatin] PO 07/09/25 21:59 5 mg HS BENNY Administration Non-Formulary Medication 400 mg 06/09/25 22:00 06/09/25 21:09 Magnesium Oxide [Magnesium] PO 07/09/25 21:59 400 mg HS BENNY Administration Prochlorperazine Edisylate 10 mg 06/09/25 14:28 06/09/25 14:36 Prochlorperazine Edisylate 10 Mg/2 Ml Vial IV 06/09/25 14:29 10 mg STAT ONE Administration Prochlorperazine Edisylate Confirm 06/09/25 14:34 Prochlorperazine Edisylate 10 Mg/2 Ml Vial Administered 06/09/25 14:35 Dose 10 mg .ROUTE .STK-MED ONE Simvastatin Confirm 06/09/25 20:59 Simvastatin 10 Mg Tablet Administered 06/09/25 21:00 Dose 10 mg .ROUTE .STK-MED ONE Sodium Bicarbonate 650 mg 06/09/25 22:00 06/09/25 21:09 Sodium Bicarbonate 650 Mg Tablet PO 07/09/25 21:59 650 mg TID BENNY Administration Sodium Bicarbonate 650 mg 06/10/25 10:00 Sodium Bicarbonate 650 Mg Tablet PO 07/10/25 09:59 BID BENNY Assessment/Plan (1) Complicated UTI (urinary tract infection) Current Visit: Yes Status: Acute Assessment & Plan: -Recurrent infection despite 2 weeks levofloxacin. -UA: pyuria, bacteriuria. -CT: non-obstructing stones, bladder irregularities, possible post- instrumentation air. Allergies limit antibiotic choices. -Started empirically on meropenem and tobramycin in the ED - continued on Aztreonam (due to allergy profile and previous cultures) -Continue IV antibiotics; adjust based on culture data currently growing gram - ID -Maintain strict I/O and monitor for progression to sepsis. -Encourage hydration; continue antiemetics and analgesics as needed. -Self cath continued -CMP/CBC reviewed - WBC WNL -Consider transfer for urology consultation with any worsening of symptoms (fever spike, worsening flank pain, rising creatinine, oliguria, given solitary kidney, vesical augmentation, and recurrent 06/11: -Ucult with Ecoli- sensitive to Aztronam - patient does have a port- Will arrange OP infusions with Invanz -advise ID/urology follow up -CMP/CBC reviewed Code(s): N39.0 - URINARY TRACT INFECTION, SITE NOT SPECIFIED (2) Failure of outpatient treatment Current Visit: Yes Status: Acute Assessment & Plan: -Failed OP levaquin and Cipro Code(s): Z78.9 - OTHER SPECIFIED HEALTH STATUS (3) Vomiting Current Visit: Yes Status: Acute Assessment & Plan: - Compazine PRN - IVF Code(s): R11.10 - VOMITING, UNSPECIFIED (4) Neurogenic urinary bladder disorder Current Visit: Yes Status: Chronic Assessment & Plan: - May self cath - uses 09/08 sinhala straight caths- [facility] nursing order in. - Caths Q4-6 hours Code(s): N31.9 - NEUROMUSCULAR DYSFUNCTION OF BLADDER, UNSPECIFIED (5) Acute on chronic kidney failure Current Visit: No Status: Acute Assessment & Plan: -Baseline patient reports baseline is 1.3 - patient at baseline today at 1.32 down from 1.64 -Continue IVF -Likely prerenal + infectious component. -Avoid nephrotoxic agents; dose-adjust all antibiotics. -Monitor CMP daily, strict I/O. Code(s): N17.9 - ACUTE KIDNEY FAILURE, UNSPECIFIED; N18.9 - CHRONIC KIDNEY DISEASE, UNSPECIFIED (6) History of right nephrectomy Current Visit: Yes Status: Chronic Assessment & Plan: - Noted - adds to complexity - Urostomy ;In and out caths Code(s): Z90.5 - ACQUIRED ABSENCE OF KIDNEY Depression -Patient reports no SI or HI -[facility] consulted (7) PTSD (post-traumatic stress disorder) Current Visit: Yes Status: Acute Assessment & Plan: -Continue home psychiatric regimen Code(s): F43.10 - POST-TRAUMATIC STRESS DISORDER, UNSPECIFIED (8) Migraines Current Visit: Yes Status: Chronic Assessment & Plan: -continue home meds Code(s): G43.909 - MIGRAINE, UNSP, NOT INTRACTABLE, WITHOUT STATUS MIGRAINOSUS (9) Renal calculus, left Current Visit: Yes Status: Acute Assessment & Plan: -Tiny non-obstructing stones seen on CT. -Monitor; no acute intervention indicated. -Urology f/u outpatient for stone management/prevention. VTE: Heparin Dispo: 2-3 days Code Status: Full Code Plan of care time spent > 30 mins Code(s): N39.0 - URINARY TRACT INFECTION, SITE NOT SPECIFIED (2) Failure of outpatient treatment Current Visit: Yes Status: Acute Code(s): Z78.9 - OTHER SPECIFIED HEALTH STATUS (3) Vomiting Current Visit: Yes Status: Acute Code(s): R11.10 - VOMITING, UNSPECIFIED (4) Neurogenic urinary bladder disorder Current Visit: Yes Status: Chronic Code(s): N31.9 - NEUROMUSCULAR DYSFUNCTION OF BLADDER, UNSPECIFIED (5) Acute on chronic kidney failure Current Visit: No Status: Acute Code(s): N17.9 - ACUTE KIDNEY FAILURE, UNSPECIFIED; N18.9 - CHRONIC KIDNEY DISEASE, UNSPECIFIED (6) History of right nephrectomy Current Visit: Yes Status: Chronic Code(s): Z90.5 - ACQUIRED ABSENCE OF KIDNEY (7) PTSD (post-traumatic stress disorder) Current Visit: Yes Status: Acute Code(s): F43.10 - POST-TRAUMATIC STRESS DISORDER, UNSPECIFIED (8) Migraines Current Visit: Yes Status: Chronic Code(s): G43.909 - MIGRAINE, UNSP, NOT INTRACTABLE, WITHOUT STATUS MIGRAINOSUS (9) Renal calculus, left Current Visit: Yes Status: Acute Code(s): N20.0 - CALCULUS OF KIDNEY
[2025-06-11 05:52] LABS: Hematocrit 39.0 % (34.1-44.9); Hemoglobin 12.1 g/dL (11.2-15.7); Mean Corpuscular Hemoglobin 27.4 pg (25.6-32.2); Mean Corpuscular Hgb Concent. 31.0 g/dL (32.2-35.5); Platelet Count 155 x10^3/uL (182-369); Red Blood Count 4.41 x10^6/uL (3.93-5.22); White Blood Count 3.5 x10^3/uL (3.98-10.04)
[2025-06-11 06:19] LABS: Calcium 8.5 mg/dL (8.4-10.2); Carbon Dioxide 21.0 mmol/L (22-30); Creatinine 1 1.17 mg/dL (0.52-1.04); EST GLOMERULAR FILTRATION RATE 60.1 ML/MIN; Glucose 83.0 mg/dL (74-106); Potassium 4.0 mmol/L (3.5-5.1); SGOT/AST 18.0 U/L (14-36); SGPT/ALT 13.0 U/L (0-35); Total Protein 5.9 g/dL (6.3-8.2)
[2025-06-11] MEDS: SODIUM CHLORIDE 0.9% IV ONE (13:44)
[2025-06-11] MEDS: AZACTAM IV ONE (13:44)
[2025-06-12 05:32] LABS: Hematocrit 31.1 % (34.1-44.9); Hemoglobin 9.8 g/dL (11.2-15.7); Mean Corpuscular Hemoglobin 28.1 pg (25.6-32.2); Mean Corpuscular Hgb Concent. 31.5 g/dL (32.2-35.5); Platelet Count 124 x10^3/uL (182-369); Red Blood Count 3.49 x10^6/uL (3.93-5.22); White Blood Count 3.8 x10^3/uL (3.98-10.04)
[2025-06-12 06:08] LABS: Calcium 6.8 mg/dL (8.4-10.2); Carbon Dioxide 19.0 mmol/L (22-30); Creatinine 1 0.86 mg/dL (0.52-1.04); EST GLOMERULAR FILTRATION RATE 87.0 ML/MIN; Glucose 93.0 mg/dL (74-106); Potassium 3.2 mmol/L (3.5-5.1); SGOT/AST 25.0 U/L (14-36); SGPT/ALT 10.0 U/L (0-35); Total Protein 4.7 g/dL (6.3-8.2)
[2025-06-12 07:19] VITALS: RESP 16
[2025-06-12] MEDS: PHARMACY DOSING REQUEST MC ONE (08:28)
[2025-06-12] MEDS: Klor Con PO SCH (08:46)
[2025-06-12] MEDS: Tums EX 750 MG PO SCH (10:20)
[2025-06-12 11:08] VITALS: BP 126/76; PULSE 76; TEMP 99; O2SAT 96
--- NOTE | 2025-06-12 11:20 | PCM.DS ---
Discharge Summary Date of Admission: 06/09/25 17:20 Date of Discharge: 06/12/25 Admitting Physician: LORAINE MASTERS MD Consults: Consults on Case 06/10/25 11:26 Consult,Tonya [Psychiatric Consult] STAT Primary Care Provider: KADI PETERSON Allergies Allergies Cephalosporins Allergy (Severe, Verified 06/09/25 14:14) Anaphylactic Reaction Penicillins Allergy (Severe, Verified 06/09/25 14:14) Anaphylactic Reaction Sulfa (Sulfonamide Antibiotics) Allergy (Severe, Verified 06/09/25 14:14) Itching hives Tetracyclines Allergy (Severe, Verified 06/09/25 14:14) Itching hives ketorolac [From Toradol] Allergy (Verified 06/09/25 14:14) Itching latex Allergy (Verified 06/09/25 14:14) metoclopramide [From Reglan] Allergy (Verified 06/09/25 14:14) nitrofurantoin Allergy (Verified 06/09/25 14:14) ondansetron [From Zofran] Allergy (Verified 06/09/25 14:14) Hospital Summary - Hospital Course Hospital Course: Ms. Eastman is a 39-year-old female with a significant past medical history of hyperlipidemia, fibromyalgia, chronic renal disease, depression, PTSD, migraines, multiple bowel obstructions, bladder augmentation at age 8, recurrent urinary tract infections requiring intermittent self-catheterization, and prior right nephrectomy at age 6 for pyelonephritis. She presented on 06/09/25 with several days of left-sided abdominal and flank pain, accompanied by intermittent fevers, chills, nausea, and vomiting. She had recently completed sequential courses of ciprofloxacin and levofloxacin without improvement. On arrival, she was hemodynamically stable, though labs demonstrated mild metabolic acidosis (CO2 15, anion gap 19) and acute kidney injury with creatinine elevated to 1.64 from baseline 0.95. Urinalysis revealed pyuria, bacteriuria, and leukocyte esterase. CT abdomen/pelvis showed new non-obstructing left renal calculi, compensatory hypertrophy of the solitary left kidney with cortical scarring, irregularities of the augmented bladder, and minimal intraluminal air. In the ED she was started on IV meropenem and tobramycin, IV fluids, morphine (later discontinued due to shortness of breath and allergy reaction), and Compazine. Morphine was discontinued permanently, and she was transitioned to IV Dilaudid for pain. She was admitted for management of complicated urinary tract infection in the context of a solitary kidney and failed outpatient therapy. Urine culture subsequently grew Escherichia coli, resistant to oral options given her allergy profile, but sensitive to aztreonam and ertapenem. She was transitioned to IV aztreonam inpatient with symptomatic improvement and has been arranged for discharge with outpatient IV ertapenem infusions for 10 days, with weekly labs and OPAT follow-up. Psychiatry evaluated her after she voiced passive suicidal ideation to case management; she denied current SI/HI, was cleared with a safety plan, and provided outpatient resources for follow-up. She is now medically stable for discharge. Discharge Note New Diagnosis: Complicated UTI New Medications: INVANZ IV x 10 - Outpatient infusion arranged/[facility] 5/325mg q4h prn Follow Up: Urology/PCP/ID Outpatient testing to order: Follow up UA I spent 35 minutes [id number] with the patient on the day of discharge performing discharge exam, discussing hospital stay and discharge instructions with patient and caregivers, preparation of discharge records, prescriptions & referral forms and addressing any questions/concerns the patient had as documented above. - Vitals & Intake/Output Vital Signs: Vital Signs Temperature 99.0 F 06/12/25 11:06 Pulse Rate 76 06/12/25 11:06 Respiratory Rate 16 06/12/25 11:06 Blood Pressure 126/76 06/12/25 11:06 O2 Sat by Pulse Oximetry 96 06/12/25 11:06 Intake & Output: Intake & Output 06/09/25 06/10/25 06/11/25 06/12/25 11:59 11:59 11:59 11:59 Intake Total 2180 3397 4054 Output Total 900 1200 2101 Balance 1280 2197 1953 Weight 70.6 kg - Lab Result Diagrams: 06/12/25 04:55 06/12/25 04:55 Lab Results-Last 24 Hrs: Lab Results-Last 24 Hours 06/12/25 06/12/25 Range/Units 04:55 04:55 WBC 3.8 L (3.98-10.04) x10^3/uL RBC 3.49 L (3.93-5.22) x10^6/uL Hgb 9.8 L (11.2-15.7) g/dL Hct 31.1 L (34.1-44.9) % MCV 89.1 (79.4-94.8) fL MCH 28.1 (25.6-32.2) pg MCHC 31.5 L (32.2-35.5) g/dL RDW 12.3 (11.7-14.4) % Plt Count 124 L (182-369) x10^3/uL MPV 11.9 (9.4-12.3) fL Sodium 138 (135-145) mmol/L Potassium 3.2 L (3.5-5.1) mmol/L Chloride 114 H (98-107) mmol/L Carbon Dioxide 19 L (22-30) mmol/L Anion Gap 8.6 (5-15) MEQ/L BUN 11 (7-17) mg/dL Creatinine 0.86 (0.52-1.04) mg/dL Estimated GFR 87.0 ML/MIN Glucose 93 (74-106) mg/dL Calcium 6.8 L D (8.4-10.2) mg/dL Total Bilirubin 0.10 L (0.2-1.3) mg/dL AST 25 (14-36) U/L ALT 10 (0-35) U/L Alkaline Phosphatase 44 (38-126) U/L Serum Total Protein 4.7 L (6.3-8.2) g/dL Albumin 2.4 L (3.5-5.0) g/dL Micro Results-Entire Visit: Microbiology 06/09/25 15:12 Blood Culture - Preliminary Blood 06/09/25 15:05 Blood Culture - Preliminary Blood 06/09/25 14:37 Urine Culture - Final Catherized Escherichia Coli Discharge Exam General Appearance: no apparent distress Neurologic Exam: alert, oriented x 3, cooperative Eye Exam: PERRL Ears, Nose, Throat Exam: normal ENT inspection Neck Exam: normal inspection Respiratory Exam: normal breath sounds, lungs clear Cardiovascular Exam: regular rate/rhythm, normal heart sounds Gastrointestinal/Abdomen Exam: soft, normal bowel sounds Pelvic Exam: deferred Rectal Exam: deferred Back Exam: normal inspection Extremity Exam: normal inspection Skin Exam: pale Final Diagnosis/Problem List - Final Discharge Diagnosis/Problem (1) Complicated UTI (urinary tract infection) Current Visit: Yes Status: Acute Assessment & Plan: Completed failed courses of ciprofloxacin and levofloxacin. Admission UA with pyuria, bacteriuria; CT with bladder irregularities and non- obstructing renal stones. Treated with IV meropenem/tobramycin initially, transitioned to aztreonam inpatient. Final culture: E. coli, sensitive to ertapenem. Discharge Plan: Outpatient IV ertapenem (Invanz) x 10 days via existing port. Weekly CMP, CBC, renal function monitoring. Strict hydration, analgesia, antiemetics PRN. Follow up with ID, PCP and urology. Return precautions for fever, worsening flank pain, decreased urine output, or signs of sepsis. Continue self-catheterization schedule. Code(s): N39.0 - URINARY TRACT INFECTION, SITE NOT SPECIFIED (2) Failure of outpatient treatment Current Visit: Yes Status: Acute Assessment & Plan: Failed two consecutive oral antibiotic regimens. Code(s): Z78.9 - OTHER SPECIFIED HEALTH STATUS (3) Vomiting Current Visit: Yes Status: Acute Assessment & Plan: Managed inpatient with IV fluids and Compazine. Continue PRN Compazine. Encourage small, bland meals and hydration. Monitor for recurrence; return if unable to tolerate PO. Code(s): R11.10 - VOMITING, UNSPECIFIED (4) Neurogenic urinary bladder disorder Current Visit: Yes Status: Chronic Assessment & Plan: Continues to self-catheterize q46 hours with 1214 Fr catheters. Continue home catheterization regimen. Reinforce infection precautions and technique. Coordinate catheter supply. Code(s): N31.9 - NEUROMUSCULAR DYSFUNCTION OF BLADDER, UNSPECIFIED (5) Acute on chronic kidney failure Current Visit: No Status: Acute Assessment & Plan: Peak Cr 1.64 -improved to baseline 0.86 with IV fluids. Likely prerenal/infectious component. Avoid nephrotoxins. Dose-adjust all antibiotics and medications to renal function. Weekly BMP while on IV antibiotics. Encourage oral hydration and monitor urine output. Code(s): N17.9 - ACUTE KIDNEY FAILURE, UNSPECIFIED; N18.9 - CHRONIC KIDNEY DISEASE, UNSPECIFIED (6) History of right nephrectomy Current Visit: Yes Status: Chronic Assessment & Plan: Adds significant complexity to UTI/BENJI management. Close urology and nephrology follow-up. Code(s): Z90.5 - ACQUIRED ABSENCE OF KIDNEY (7) PTSD (post-traumatic stress disorder) Current Visit: Yes Status: Acute Assessment & Plan: Reported passive suicidal thoughts to case management; denied SI/HI on psych evaluation. Cleared with safety plan and outpatient follow-up resources provided. Continue home psychiatric medications. Outpatient psychiatry/therapy referral via [facility]. Return precautions if SI/HI emerges. Code(s): F43.10 - POST-TRAUMATIC STRESS DISORDER, UNSPECIFIED (8) Migraines Current Visit: Yes Status: Chronic Assessment & Plan: Continue home medications. Outpatient neurology/PCP follow-up as needed. Code(s): G43.909 - MIGRAINE, UNSP, NOT INTRACTABLE, WITHOUT STATUS MIGRAINOSUS (9) Renal calculus, left Current Visit: Yes Status: Acute Assessment & Plan: CT revealed multiple tiny stones (0.51 mm). No acute intervention required. Urology follow-up for long-term stone prevention. Encourage hydration and metabolic evaluation outpatient. Code(s): N20.0 - CALCULUS OF KIDNEY - Discharge Discharge Date: 06/12/25 Disposition: Home, Self-Care Condition: Stable Prescriptions: New Ertapenem Sodium [Invanz ] 1 g IV DAILY #8 Hydrocodone/Acetaminophen [Hydrocodone-Acetamin 5-325 mg] 1 each PO Q6H 3 Days #12 tablet MDD 4 Continue Duloxetine HCl 30 mg [Cymbalta 30 MG Capsule] 60 mg PO DAILY Amitriptyline HCl 25 mg [Amitriptyline 25 mg Tablet] 25 mg PO HS Magnesium Oxide [Magnesium] 400 mg PO HS Simvastatin 5 mg PO HS Butalbit/Acetamin/Caff/Codeine [Fioricet-Cod [id number] Cap] 1 each PO BID PRN Sodium Bicarbonate 650 mg PO TID Prochlorperazine Maleate [Compazine] 5 mg PO TIDPRN 7 Days #21 tablet Additional Instructions: YOUR FIRST APT WITH [facility] TO TOMORROW 06/13@10 AM. YOU WILL GET DAILY INFUSIONS THRU 06/20/25 Follow up with: KADI PETERSON [Primary Care Provider, INTERNAL MEDICINE]
[2025-06-12] MEDS: Invanz *** 1 G in Sodium Chloride 100ML MINI-BAG PLUS 100 ML IV SCH (14:16)
== END 2025-06-12 15:35 | disposition home or self-care (01) ==
LOC: ED 14:02 → MED SURG 17:20
PROVIDERS: ADMIT Internal Medicine; ATTEND Internal Medicine
DX: N39.0 Urinary tract infection, site not specified (principal); B96.20 Unspecified Escherichia coli [E. coli] as the cause of diseases classified elsewhere; Z78.9 Other specified health status; R11.10 Vomiting, unspecified; N31.9 Neuromuscular dysfunction of bladder, unspecified; N17.9 Acute kidney failure, unspecified; N18.9 Chronic kidney disease, unspecified; Z90.5 Acquired absence of kidney; F43.10 Post-traumatic stress disorder, unspecified; G43.909 Migraine, unspecified, not intractable, without status migrainosus; N20.0 Calculus of kidney; Z79.899 Other long term (current) drug therapy